=== PATIENT | male | born 1970 | race Caucasian/White ===

== ENCOUNTER 2018-01-16 22:22 | Emergency (ER) | payer MEDICAID, SELFPAY ==
[2018-01-16 22:23] VITALS: BP 132/84; PULSE 78; RESP 18; TEMP 36.6; O2SAT 98; BMI 36.8
--- NOTE | 2018-01-16 22:37 | EKG12_ITS ---
Test Reason : Blood Pressure : / mmHG Vent. Rate : 072 BPM Atrial Rate : 072 BPM P-R Int : 176 ms QRS Dur : 078 ms QT Int : 402 ms P-R-T Axes : 009 -07 022 degrees QTc Int : 440 ms Normal sinus rhythm Minimal voltage criteria for LVH, may be normal variant Inferior infarct , age undetermined Abnormal ECG Confirmed by LINDA MALDONADO, BECCA ([id number]), editorial specialist YANDEL MANCIA ([id number]) on 01/19/2018 2:56:09 PM Referred By: SHAISTA Confirmed By:BECCA MCKEON MD
--- NOTE | 2018-01-16 22:37 | US_ITS ---
STUDY: ABDOMINAL ULTRASOUND - RIGHT UPPER QUADRANT REASON FOR VISIT: Male, 47 years old. Pain TECHNIQUE: Ultrasound evaluation of the right upper quadrant was performed with real-time and static mann-scale imaging. TECHNICAL QUALITY: Adequate. COMPARISON: None. FINDINGS: Liver: The liver measures 20.2 cm. There is increased echogenicity of the liver. The bile ducts are within normal limits. There is hepatic color flow. The direction of portal flow is hepatopetal. There is no demonstrated mass lesion. Gallbladder: Normal distended gallbladder. The gallbladder wall measures 4 mm. There is a negative sonographic Bolden's sign. There is no pericholecystic fluid. There are no gallstones. However, there are echogenic foci with ringdown artifact consistent with adenomyomatosis Common Bile Duct (C.B.D.): The common bile duct measures 4 mm. Pancreas: Nonvisualization of the pancreatic tail otherwise normal-appearing pancreas. Right Kidney: Normal size of the right kidney. The right kidney measures 11.7 x 6.4 x 7.3 cm. Normal renal cortex. The right cortex measures 1.4 cm. There is no demonstrated renal mass or cyst. There is no right hydronephrosis. US/Gallbladder IMPRESSION: Enlarged fatty infiltrated liver. Thick-walled gallbladder demonstrating adenomyomatosis. No gallstones or evidence for acute cholecystitis HIDA scan with fatty meal stimulation would be helpful for further assessment if indicated Electronically Signed: Chris Sy MD at 23:40 EDT , Service support ,
--- NOTE | 2018-01-16 22:39 | RAD_ITS ---
STUDY: X-RAY CHEST REASON FOR EXAM: Male, 47 years old. Abdominal pain TECHNIQUE: AP portable COMPARISON: None. FINDINGS: Diminished inspiratory effort is seen and there appears to be very mild atelectasis at the right base.. There is no demonstrated pleural abnormality. The heart is mildly enlarged Normal mediastinum and alayna. Normal visualized pulmonary arteries. Normal visualized aortic arch and descending thoracic aorta. Dorsal spine demonstrates spondylosis Normal visualized ribs, clavicles, and shoulders. There is no demonstrated abnormality of the visualized soft tissue structures of the upper abdomen. RAD/Chest 1 View (Portable) IMPRESSION: Diminished inspiratory effort and minor right basilar atelectasis. Electronically Signed: Chris Sy MD at 23:01 EDT , Service support ,
--- NOTE | 2018-01-16 22:41 | ED.DCSUM_ITS ---
- ER Visit Summary Date of Service: 01/16/18 Chief Complaint: Gallbladder attack History of Present Illness: The patient is a 47 M with abdominal pain for the past couple of days. The pain is in his right upper quadrant and radiates to his mid back and right lower chest. Worse with food. Associated with bloating. Nothing seems to make it better. Denies nausea, vomiting, fevers, or jaundice. Denies any respiratory symptoms. Denies any urinary symptoms. Denies any history of abdominal surgery. He does have a history of hyperlipidemia. Smoker. Physical Examination: Afebrile and vital signs unremarkable. Patient is alert and oriented. No acute distress. Skin normal in color without jaundice or pallor. Heart regular rate and rhythm. Lungs clear. Abdomen tender in the right upper quadrant. No guarding or rebound. Normal bowel sounds. Back unremarkable. No tenderness. No rash noted. Calf soft and supple. Moves all extremities. Test Results: EKG, chest x-ray, right upper quadrant ultrasound, labs pending. Emergency Department Course and Treatment: Patient declined pain medicine. He will be treated with fluid bolus while awaiting results. EKG sinus rhythm, unremarkable. Chest x-ray showed nothing significant. Ultrasound showed a fatty liver and a thick-walled gallbladder with adenomyomatosis, but no stones or signs of cholecystitis. CBC normal. Glucose 153, total bilirubin 1.4, alkaline phosphatase 146, ALT 360, AST 497. Lipase normal. Troponin normal. Patient has findings consistent with hepatitis. He was discussed with Dr. Huizar. He advised checking CMV, EBV, hepatitis panel, JOLANTA, anti-smooth muscle, and ceruloplasmin level. He also advised a repeat hepatic panel prior to his outpatient visit. Patient was given a prescription for this. Patient was advised to follow-up with him in the office, . He needs to be seen early next week. He should return to the emergency department if he is doing worse. It is unclear if Dr. Huizar is in the patient's insurance network. The patient will call to find out. If he has trouble following up or getting seen, he will touch base with his PCP for help with a referral. Treatment Plan: As above Disposition: Discharged Impression: 1. Hepatitis This note was generated with [employer] software. It may contain incorrect words, spelling, and punctuation that were not noted in review of the chart prior to signing ED Disposition - Plan for ED Patient: Chief Complaint: Abd Pain Referrals: Demetrius Phelps DO [Primary Care Provider] -
--- NOTE | 2018-01-16 22:41 | ED.RN ---
NO OLD EKGS
[2018-01-16] MEDS: 0.9% Normal Saline 1,000 ML 1000 ML IV (22:51)
[2018-01-16 23:20] LABS: ALB/GLOB Ratio 1.1 RATIO (0.9-2.4); AST(SGOT) 497 U/L (15-37); Alanine Aminotransfer ALT/SGPT 360 U/L (16-61); Albumin, Serum 3.7 g/dL (3.2-5.0); Alkaline Phosphatase 146 U/L (45-117); Anion Gap 10 (5-15); BUN 9 mg/dL (7-18); BUN/Creat Ratio 9.4 RATIO (10-20); Calcium,Total 8.6 mg/dL (8.5-10.1); Chloride 105 mmol/L (98-107); Creatinine, Serum 0.96 mg/dL (0.70-1.30); EST Glomerular Filtration Rate 89 mL/min (>60); Est Glom Filt Rate - Afr Amer 108 mL/min (>60); Estimated Creatinine Clearance 95.13 ml/min; Globulin 3.5 g/dL (2.2-4.2); Glucose 153 mg/dL (74-106); Lipase 210 U/L (73-393); Potassium 3.5 mmol/L (3.5-5.1); Protein, Total 7.2 g/dL (6.4-8.2); Sodium Level 140 mmol/L (136-145)
[2018-01-16 23:48] LABS: Absolute Lymphocyte Count 1.07 X10^3/ul (0.83-4.51); Absolute Neutrophil Count 3.3 X10^3/uL (2.0-7.7); Basophil# 0.03 X10^3/uL; Basophil% 0.6 % (0-1); Eosinophil# 0.06 X10^3/uL; Eosinophils% 1.2 % (0-5); Hematocrit 41.4 % (40-54); Hemoglobin 14.2 g/dl (13.0-16.5); Lymphocyte # 1.07 X10^3/ul (4.0); Lymphocyte % 22.1 % (19-41); Mean Corp Hgb Conc 34.3 g/gl (32-36); Mean Corpuscular Hgb 30.7 pg (27.0-32.0); Mean Corpuscular Volume 89.4 fL (80-94); Mean Platelet Vol. 11.7 fl (6.2-12.0); Monocyte# 0.42 X10^3/uL; Monocyte% 8.7 % (0-10); Neutrophil # 3.26 X10^3/uL (2.7-7.7); Neutrophil % 67.2 % (47-70); Platelet Count 214 K/mm3 (150-450); RBC Distribution Width CV 13.1 % (11.6-14.6); RBC Distribution Width SD 42.6 fl (35.1-43.9); Red Blood Count 4.63 M/mm3 (4.6-6.2); White Blood Count 4.9 K/mm3 (4.4-11.0)
[2018-01-16 23:54] LABS: POSITIVE COUNT NO; POSITIVE DIFFERENTIAL NO; POSITIVE MORPHOLOGY NO
--- NOTE | 2018-01-17 00:42 | ED.DEP ---
ED Disposition - Plan for ED Patient: Chief Complaint: Abd Pain Instructions: Common Tests for Liver Disease Additional Instructions: Call for follow-up with Dr. Huizar on [address] in [place]. [phone]. You need to be seen early next week. If you have trouble following up, contact your primary care doctor for referral. Return to the emergency department if you are doing worse.
[2018-01-17 01:02] VITALS: BP 126/81; PULSE 63; RESP 16; O2SAT 96
[2018-01-19 20:08] LABS: HEPATITIS B SURFACE AG Negative (Negative); Hepatitis A IgM Antibody Negative (Negative); Hepatitis B Core AB IgM Negative (Negative)
[2018-01-20 08:37] LABS: ANTINUCLEAR ANTIBODIES DIRECT Negative (Negative)
[2018-01-20 08:38] LABS: Anti-Smooth Muscle ABS 5 Units (0-19); CMV Acute Antibody IgM < 30.0 AU/mL (0.0-29.9); CMV Antibody IgG < 0.60 U/mL (0.00-0.59); Ceruloplasmin 22.2 mg/dL (16.0-31.0); EBV Acute VCA IgM < 36.0 U/mL (0.0-35.9); EBV Early Antigen IgG <9.0 U/mL (0.0-8.9); EBV Nuclear Antigen IgG < 18.0 U/mL (0.0-17.9); Hep C Antibodies <0.1 s/co ratio (0.0-0.9)
== END 2018-01-17 01:09 | disposition home or self-care (01) ==
LOC: ED 23:49
PROVIDERS: Emergency Provider Emergency Medicine; Family Provider Family Medicine; PCP Family Medicine
DX: K75.9 Inflammatory liver disease, unspecified (principal); K76.0 Fatty (change of) liver, not elsewhere classified; F17.290 Nicotine dependence, other tobacco product, uncomplicated; E78.5 Hyperlipidemia, unspecified
CPT/HCPCS: 71045; 76705; 80053; 80074; 82390; 83516; 83690; 84484; 85025; 86038; 86225; 86235; 86644; 86645; 86663; 86664; 86665; 93005; 96360; 99283; J7030; A4216

== ENCOUNTER → 2018-01-20 13:28 | Outpatient (CLI) | payer MEDICAID, SELFPAY ==
[2018-01-20 15:33] LABS: AST(SGOT) 35 U/L (15-37); Alanine Aminotransfer ALT/SGPT 164 U/L (16-61); Albumin, Serum 3.7 g/dL (3.2-5.0); Alkaline Phosphatase 139 U/L (45-117); Bilirubin, Direct 0.09 mg/dL (0.00-0.30); Globulin 3.2 g/dL (2.2-4.2); Protein, Total 6.9 g/dL (6.4-8.2)
== END ==
PROVIDERS: Family Provider Family Medicine; PCP Family Medicine; Visit Provider Family Medicine
DX: R74.8 Abnormal levels of other serum enzymes (principal)
CPT/HCPCS: 36415; 80076

== ENCOUNTER → 2018-01-22 11:33 | Outpatient (CLI) | payer MEDICAID, SELFPAY ==
--- NOTE | 2018-01-22 11:36 | NM_ITS ---
CLINICAL: 47-year-old male with history of postprandial right upper quadrant abdominal pain and nausea. RADIONUCLIDE HEPATOBILIARY SCINTIGRAPHY COMPARISON: Abdominal ultrasound report 01/16/2018 FINDINGS: Following the intravenous administration of 5.4 mCi of 99m Tc Mebrofenin, hepatobiliary images reveal: 1. Relatively prompt and homogeneous radiopharmaceutical concentration is noted by a normal sized liver. No parenchymal defects are identified. 2. Gallbladder activity is identified at 30 minutes post radiopharmaceutical administration. 3. Small intestinal tract is observed at 15 minutes following tracer injection. 4. Washout of the radiopharmaceutical by the hepatic parenchyma appears qualitatively normal. The patient was administered a fatty meal (8 ounces Boost). The post fatty meal ingestion gallbladder ejection fraction calculated at 60 minutes following fatty meal administration was noted to be 74.0 % (normal greater than 30%). Duodenal-gastric reflux is demonstrated following the administration of the fatty meal. NM/Hepatobilliary Img w/Pharm Int IMPRESSION: 1. A gallbladder ejection fraction calculated to be greater than 30% following the administration of an ingested fatty meal makes the probability of functional hepatobiliary disease (gallbladder and/or sphincter of Oddi dyskinesia) and/or organic hepatobiliary disease (chronic acalculous cholecystitis and/or cystic duct syndrome) to be low. (Rah and Fletcher, J Nucl Med 43: 1603, 2002). 2. There is scintigraphic evidence of pre-post fatty meal duodenal gastric reflux. Electronically Signed: Daljit Richardson DO at 10:56 EDT Tel , Service support ,
== END ==
LOC: NM 11:36
PROVIDERS: Family Provider Family Medicine; PCP Family Medicine; Referring Provider Family Medicine; Visit Provider Family Medicine
DX: R10.11 Right upper quadrant pain (principal)
CPT/HCPCS: 78227; A9537

== ENCOUNTER → 2019-02-03 09:30 | Outpatient (CLI) | payer MEDICAID, SELFPAY ==
[2019-02-03 12:44] LABS: ALB/GLOB Ratio 1.1 RATIO (0.9-2.4); AST(SGOT) 15 U/L (15-37); Alanine Aminotransfer ALT/SGPT 29 U/L (16-61); Albumin, Serum 3.7 g/dL (3.2-5.0); Alkaline Phosphatase 91 U/L (45-117); Anion Gap 7 (5-15); BUN 15 mg/dL (7-18); BUN/Creat Ratio 17.3 RATIO (10-20); Calcium,Total 8.9 mg/dL (8.5-10.1); Chloride 106 mmol/L (98-107); Cholesterol 191 mg/dL (200); Creatinine, Serum 0.87 mg/dL (0.70-1.30); EST Glomerular Filtration Rate 99 mL/min (>60); Est Glom Filt Rate - Afr Amer 120 mL/min (>60); Globulin 3.3 g/dL (2.2-4.2); Glucose 79 mg/dL (74-106); High Density Lipoprotein 34 mg/dL; Potassium 3.9 mmol/L (3.5-5.1); Sodium Level 141 mmol/L (136-145); Triglycerides 236 mg/dL; Very Low Density Lipoprotein 47 mg/dL (5-40)
== END ==
PROVIDERS: Family Provider Family Medicine; PCP Family Medicine; Visit Provider Family Medicine
DX: E78.5 Hyperlipidemia, unspecified (principal); K75.81 Nonalcoholic steatohepatitis (NASH)
CPT/HCPCS: 36415; 80053; 80061

== ENCOUNTER → 2019-04-05 16:27 | Outpatient (CLI) | payer OTHER, SELFPAY ==
--- NOTE | 2019-04-05 16:32 | MRI_ITS ---
STUDY: MRI BRAIN WITH AND WITHOUT CONTRAST (ATTENTION INTERNAL AUDITORY CANALS - I.A.C.''s) REASON FOR EXAM: Male, 48 years old. left tinnitus x 3 months -- no pain, no hearing loss, no dizziness TECHNIQUE: Standardized multiplanar fat and water weighted pulse sequences were obtained. dotarem 22 ml iv was administered for the contrast portion of the examination. COMPARISON: None. FINDINGS: Normal bilateral temporal bones. Normal bilateral internal auditory canals. There is no demonstrated intracanalicular or cisternal vestibular schwannoma (acoustic neuroma). There is no enhancement of the bilateral VIIth or VIIIth cranial nerves. Normal bilateral cochlea, vestibules and semicircular canals. Normal size of the ventricles and extra-axial spaces for the patient''s age. Normal white matter tracts of the supratentorial brain. Normal bilateral basal ganglia. Normal thalami. Normal flow voids within the major intracranial circulation suggesting patency by spin echo criteria. Normal venous enhancement. There is no enhancing intra-axial or extra-axial abnormality. There is no extra-axial fluid accumulation. Normal sella turcica, pituitary gland, infundibular stalk, optic chiasm and hypothalamus. Normal tectal plate and pineal gland. Normal midbrain, chey and medulla. Normal cerebellum. Normal basal cisterns. No demonstrated orbital abnormality, within the constraints of a routine brain study. Normal visualized paranasal sinuses. Normal calvarium and skull base. Normal visualized soft tissue structures. Normal visualized upper cervical spine. MRI/Brain W/WO Contrast IMPRESSION: Normal unenhanced and enhanced MRI of the bilateral internal auditory canals (I.A.C''s). Electronically Signed: Maya Barraza MD at 15:39 EST Tel , Service support ,
== END ==
PROVIDERS: Family Provider Family Medicine; PCP Family Medicine; Referring Provider Otolaryngology Otolaryngology/Facial Plastic Surgery; Visit Provider Otolaryngology Otolaryngology/Facial Plastic Surgery
DX: H93.12 Tinnitus, left ear (principal)
CPT/HCPCS: 70553; A9575

== ENCOUNTER 2024-04-27 17:06 | Inpatient (IN) | payer OTHER, SELFPAY ==
--- NOTE | 2024-04-27 | IMM_PTH ---
PATIENT: ROSALVA REBOLLEDO LOC: MS3 U#:[id number] AGE/SX: 54/M ROOM: NH314 RE04/28/[address]: Dr. Ruddy Coffman MD : 1970 BED: 1 DIS: 04/30/2024 SPEC #: [id number] RECD: 05/03/24 13:12 STATUS: SOUT REQ #: [id number] MALA: 04/27/24 00:[address]: Ruddy Coffman DEPT: IMMUNOHISTOCHEMISTRY RECD BY: Diego Zhao ENTERED: 05/03/24 13:13 SP TYPE: IMMUNO OTHR DR: Dr. Demetrius Phelps, Tissues: A - Colon, NOS Procedures: MSH2 (add) MLH-1 (add) MSH6 (add) Anti-PMS2 (add) KI-67 (add) P53 (add) MOC-31 (add) HER-2-PIPO (initial) PHYSICIAN [facility] INSTIT[facility] [address] [address] SPECIMEN INFORMATION: Tissue Source: A- Right colon and appendix Clinical Info: Intussuspection Specimen Number: [id number] CPT code: 79818,[id number] METHODOLOGY: Deparaffinized sections of prefer/formalin-fixed tissue or PAP/DQ stained slides are incubated with monoclonal/polyclonal antibodies/oligonucleotide probes. Localization is made via biotin free immunoperoxidase method. Appropriate controls are performed and reacted as expected. Results on target cell population are indicated in the following table: RESULTS: ANTIBODY / CLONE RESULT Block A 7 Her-2neu (CB11) negative (1+) MOC-31 (4561) positive MLH-1 (M1) positive MSH2 (25D12) positive MSH6 (44) positive PMS2 ([id number]) positive Ki-67 (30-9) positive, high P53 (DO-7) positive, rare cells ( wild type pattern ) Testing for Her2 by IHC if equivocal, recommend testing for Her2 by FISH(remove/not needed) These tests were developed and their performance characteristics determined by [facility]. They may not have been cleared or approved by the U.S. Food and Drug Administration. The FDA has determined that such clearance or approval is not necessary. The above immunohistochemical/dualISH markers are ordered and reviewed by the Pathologist. 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 Result of Microsatellite Instability Study: Negative (no loss of mismatch protein; no microsatellite instability detected). [email or web address].mr 05/04/2024
[2024-04-27 17:06] VITALS: BP 152/74; PULSE 90; RESP 16; TEMP 37; O2SAT 99; BMI 34.2
--- NOTE | 2024-04-27 17:49 | CT_ITS ---
We are attempting to reach an attending provider to discuss findings. An addendum with communication details will be sent when the communication is complete. STUDY: CT ABDOMEN AND PELVIS WITH CONTRAST REASON FOR EXAM: Male, 54 years old. Abdominal pain RADIATION DOSAGE (If Supplied By Facility): CTDIvol = ( 14.56 ) mGy, DLP = ( 1305.55 ) mGycm TECHNIQUE: Transaxial images were obtained from the dome of the diaphragm to the symphysis pubis without oral contrast. IV 75mL Isovue-370 was administered. Sagittal and coronal images were reconstructed. Individualized dose optimization techniques were used for this CT. COMPARISON: None. FINDINGS: The visualized lung bases are unremarkable. The visualized portions of the heart are within normal limits. Normal liver. The gallbladder is contracted. Normal spleen. Normal pancreas. Normal bilateral adrenal glands. Normal right kidney. Normal left kidney. Normal visualized stomach. Normal small intestine. There is colocolic intussusception in the right upper quadrant of the abdomen. The appendix is visualized and appears normal. Normal abdominal aorta. Normal inferior vena cava. Normal retroperitoneum. Normal urinary bladder. There is no free fluid in the abdomen or pelvis. Normal abdominal wall. There is degenerative change of the spine and hips. CT/Abdomen/Pelvis W IV Cont ONLY IMPRESSION: Colocolic intussusception. No obstruction. Electronically Signed: Dipak Stewart MD at 19:07 EST ,
--- NOTE | 2024-04-27 17:50 | ED.VIS.GI ---
HPI HPI - GI History of Present Illness Chief Complaint: Abd Pain Detail of Chief Complaint: Abdominal pain Informant: patient Narrative Narrative: Patient presents with abdominal pain that started yesterday. Describes it as right upper quadrant radiating to his back. He said no nausea or vomiting. Food really does not seem affected much. Not very positional. Denies chest pain or shortness of breath. Denies recent travel or surgery. Denies history of kidney stones. He denies urinary symptoms. PFSH PFSH Home Medications ?Medication ?Instructions ?Recorded ?Last Taken ?Type fenofibrate nanocrystallized 48 mg 45 mg PO DAILY 01/16/18 Unknown History tablet pravastatin 20 mg tablet 20 mg PO QHS 01/16/18 Unknown History Allergy/AdvReac Type Severity Reaction Status Date / Time No Known Allergies Allergy Verified 04/27/24 17:07 Social History Smoking Status: Current some day smoker tobacco type: cigars ROS ROS ED Review of Systems ROS Unobtainable: other Constitutional Constitutional ED: Reports lethargy; Denies chills, fever(s), sweats or weight loss Eyes Eyes: Denies blurry vision, change in vision or diplopia ENT ENT ED: Denies rhinorrhea or sore throat Cardiovascular Cardiovascular: Denies chest pain, orthopnea or racing heartbeat Respiratory/Chest Respiratory/Chest: Denies cough, dyspnea, dyspnea on exertion, orthopnea or sputum Gastrointestinal Gastrointestinal: Reports abdominal pain; Denies diarrhea, nausea or vomiting Genitourinary Genitourinary ED: Denies dysuria, hematuria or urinary frequency Musculoskeletal Musculoskeletal: Denies arthralgias, back pain, myalgias or neck pain Integumentary Denies abscess, Abrasions or rash Neurologic Neurologic: Denies headache(s) or weakness Psychiatric Psychiatric: Denies anxiety, depression or suicidal thoughts Endocrine Endocrinology: Denies polydipsia, polyphagia or polyuria Hematologic/Lymphatic Hematologic/Lymphatic: Denies easy bleeding, easy bruising or lymphadenopathy Allergic/Immunologic Allergic/Immunologic ED: Denies mouth swelling, tongue swelling or urticaria EXAM Physical Exam Const Vital Signs: 04/27/24 17:06 04/27/24 19:31 Temperature 98.6 F Temperature Source Oral Pulse Rate 90 71 Respiratory Rate 16 18 Blood Pressure 152/74 H 135/78 H Blood Pressure Mean 100 97 Pulse Ox 99 98 Oxygen Delivery Method Room Air Room Air Positive well nourished and well developed General Appearance ED: well developed and NAD HEENT Reports TM's clear and moist mucous membranes normocephalic and atraumatic; Negative for trauma or tenderness Tympanic Membrane ED: Yes TM's clear Eyes PERRL and EOMs intact bilaterally General Eye ED: Negative for pale conjunctiva or scleral icterus Neck no lymphadenopathy, supple and no JVD General: Negative for tenderness Chest Wall inspection of chest normal and palpation of chest normal Chest: Negative for tenderness Resp normal respiratory effort and clear to auscultation bilaterally Effort and Inspection: Negative for respiratory distress or pain with movement Auscultation: Negative for rhonchi, wheezes or diminished lung sounds Cardio regular rate, regular rhythm, S1 normal heart sound, S2 normal heart sound and no murmurs Peripheral Pulses: pulses 2+ throughout GI normal to inspection, nondistended, normoactive bowel sounds, soft to palpation, non-distended and no masses GI Narrative: Tenderness palpation over right upper quadrant with guarding. There is a positive Bolden sign. There is no rebound or rigidity. Back/Spine no CVA tenderness and no thoracic nor lumbar tenderness Extremity normal to inspection General Extremety ED: Negative for edema General Extremity: Negative for edema Neuro oriented x3, CN's II-XII intact bilaterally, no sensory deficits noted and gait normal Sensorium / Orientation: awake, alert, oriented to person, oriented to place and oriented to time Motor Exam: strength 5/5 throughout and strength abnormal Psych mental status grossly normal Skin no rashes or lesions noted and no wounds MDM MDM MDM Narrative Medical decision making narrative: Patient with right upper quadrant abdominal pain that started yesterday. In the differential would be diverticulitis of the transverse colon versus gallbladder disease or bowel obstruction or bowel perforation. Kidney stone also would be in the differential. IV line established. He did not want thing for pain. CBC with differential obtained showed white count 7.9 with hemoglobin 11.2 and platelet count of 297. Chemistries unremarkable. LFTs were normal. Lactate was normal at 1.2. Lipase was 37. CT scan of the abdomen pelvis showed intestine section in the right upper quadrant. Discussed case with radiology who called me about the case. Also discussed case with general surgeon on-call Dr. Coffman who will present to the ER to evaluate patient. Lab Data Attestation: I reviewed the patient's lab results. Labs: Laboratory Results - last 24 hr 04/27/24 18:00 WBC 7.9 RBC 4.18 L Hgb 11.2 L Hct 35.0 L MCV 83.7 MCH 26.8 L MCHC 32.0 RDW Std Deviation 44.8 H RDW Coeff of Ana 14.6 Plt Count 297 MPV 10.8 Immature Gran % (Auto) 0.400 Neut % (Auto) 73.7 H Lymph % (Auto) 14.[address] [place] % (Auto) 9.6 Eos % (Auto) 0.9 Baso % (Auto) 0.6 Absolute Neuts (auto) 5.9 Absolute Lymphs (auto) 1.17 Nucleated RBC % 0 Sodium 140 Potassium 3.5 Chloride 106 Carbon Dioxide 28.0 Anion Gap 5 BUN 7 Creatinine 0.80 Estim Creat Clear Calc 126.18 Est GFR (MDRD) Af Amer 129 Est GFR (MDRD) Non-Af 107 BUN/Creatinine Ratio 8.7 L Glucose 104 Lactic Acid 1.2 Calcium 9.1 Total Bilirubin 0.50 AST 9 L ALT 13 L Alkaline Phosphatase 81 Troponin I High Sens 4 Total Protein 6.6 Albumin 3.2 Globulin 3.4 Albumin/Globulin Ratio 0.9 Lipase 37 Radiography Diagnostic Testing: Clinical Impression(s) from Imaging Studies Abdomen/Pelvis CT 04/27/24 17:49 IMPRESSION: Colocolic intussusception. No obstruction. Electronically Signed: Dipak Stewart MD at 19:07 EST , ADDENDUM: 04/27/24 191 IMPRESSION: Colocolic intussusception. No obstruction. N.B. : The above Results were Read Back by Dipak Stewart MD to Gregoria Treviño DO, and understanding confirmed on 04/27/2024 19:11:47 (ET). Electronically Signed: Dipak Stewart MD at 19:07 EST , EKG Initial EKG: Attestation: I personally reviewed and interpreted this EKG as follows: Comments: Sinus rhythm with rate of 73 bpm with no acute ST segment changes Discharge Plan Triage Chief Complaint: Abd Pain ED Provider: Gregoria Treviño Dx/Rx/DC Orders Clinical Impression: Abdominal pain, Intussusception Prescriptions: No Action pravastatin 20 MG tablet 20 mg PO QHS Patient Comments: take 1 tablet by mouth once daily fenofibrate nanocrystallized 48 MG tablet 45 mg PO DAILY Primary Care Provider: Demetrius Phelps Referrals: Demetrius Phelps DO [Primary Care Provider] - Print Language: Japanese Disposition Disposition: Acute Care Hospital [facility]
[2024-04-27 18:15] LABS: Absolute Lymphocyte Count 1.17 X10^3/uL (0.83-4.51); Absolute Neutrophil Count 5.9 X10^3/uL (2.0-7.7); Basophil# 0.05 X10^3/uL; Basophil% 0.6 % (0-1); Eosinophil# 0.07 X10^3/uL; Eosinophils% 0.9 % (0-5); Hemoglobin 11.2 g/dL (13.0-16.5); Lymphocyte # 1.17 X10^3/ul (0.83-4.51); Lymphocyte % 14.8 % (19-41); Mean Corpuscular Hgb 26.8 pg (27.0-32.0); Mean Corpuscular Volume 83.7 fL (80-94); Mean Platelet Vol. 10.8 fl (6.2-12.0); Monocyte# 0.76 X10^3/uL; Monocyte% 9.6 % (0-10); NRBC Flagged by Analyzer 0 % (0-5); Neutrophil # 5.85 X10^3/uL (2.7-7.7); Neutrophil % 73.7 % (47-70); Platelet Count 297 K/mm3 (150-450); RBC Distribution Width CV 14.6 % (11.6-14.6); RBC Distribution Width SD 44.8 fl (35.1-43.9); Red Blood Count 4.18 M/mm3 (4.6-6.2); White Blood Count 7.9 K/mm3 (4.4-11.0)
[2024-04-27 18:41] LABS: Lactic Acid 1.2 mmol/L (0.4-1.9)
[2024-04-27 18:45] LABS: ALB/GLOB Ratio 0.9 RATIO (0.9-2.4); AST(SGOT) 9 U/L (15-37); Alanine Aminotransfer ALT/SGPT 13 U/L (16-61); Albumin, Serum 3.2 g/dL (3.2-5.0); Alkaline Phosphatase 81 U/L (45-117); Anion Gap 5 (5-15); BUN 7 mg/dL (7-18); BUN/Creat Ratio 8.7 RATIO (10-20); Calcium,Total 9.1 mg/dL (8.5-10.1); Chloride 106 mmol/L (98-107); EST Glomerular Filtration Rate 107 mL/min (>60); Est Glom Filt Rate - Afr Amer 129 mL/min (>60); Estimated Creatinine Clearance 126.18 ml/min; Globulin 3.4 g/dL (2.2-4.2); Glucose 104 mg/dL (74-106); Lipase 37 U/L (13-75); Potassium 3.5 mmol/L (3.5-5.1); Protein, Total 6.6 g/dL (6.4-8.2); Sodium Level 140 mmol/L (136-145); Troponin-I HS 4 pg/mL (3.0-78.0)
[2024-04-27 19:31] VITALS: BP 135/78; PULSE 71; RESP 18; O2SAT 98
--- NOTE | 2024-04-27 20:12 | HP.PCM_ITS ---
HPI - General General Date of Service: 04/27/24 Chief Complaint: Acute onset right upper quadrant pain HPI Narrative ROSALVA REBOLLEDO, is a 54 M who presents to [facility] with complaints of acute onset right upper quadrant pain beginning yesterday morning. He shares that this pain has become constant in character and radiates through to his back. Generally states that it is of moderate intensity rating it a 5 or 6 of 10 but can progress to a higher intensity. He denies any associated nausea or vomiting. He confirms that his bowel habits have been regular and unremarkable. He shares he did not seek evaluation sooner because he was up at [facility] visiting his grandson who is critically ill. Upon evaluation in the emergency department emergency medicine suspected possible gallbladder issue as patient displayed marked tenderness in right upper quadrant with positive Bolden sign. Mr. Rebolledo underwent ER workup with laboratories and CT imaging. The former showed some mild anemia but otherwise was unremarkable?including normal LFTs. However, CT imaging was more significant showing evidence of colocolonic intussusception of the right colon. Upon noting this finding I was contacted by emergency medicine. Mr. Rebolledo denies any previous experience of right upper quadrant pain of this character. There is a record in the EMR that suggests a prior presentation of a similar complaint but ultimately was diagnosed with hepatitis. Mr. Rebolledo does not recall any further details of this issue and denies any known medical diagnoses and denies taking any medicines on a regular basis. He further denies any history of surgery. Mr. Rebolledo has never undergone colonoscopy. He denies any family history of colon cancer. Lastly Mr. Rebolledo denies any recent weight loss and does share that he had some dark stools over New Year's when he had an illness where he was taking Pepto-Bismol but otherwise his bowels have been unremarkable. [facility] Home Medications ?Medication ?Instructions ?Recorded ?Last Taken ?Type fenofibrate nanocrystallized 48 mg 45 mg PO DAILY 01/16/18 Unknown History tablet pravastatin 20 mg tablet 20 mg PO QHS 01/16/18 Unknown History Allergy/AdvReac Type Severity Reaction Status Date / Time No Known Allergies Allergy Verified 04/27/24 17:07 Social History Smoking Status: Current some day smoker tobacco type: cigars Vital Signs Vital Signs Vital Signs: 04/27/24 17:06 04/27/24 19:31 Temperature 98.6 F Temperature Source Oral Pulse Rate 90 71 Respiratory Rate 16 18 Blood Pressure 152/74 H 135/78 H Blood Pressure Mean 100 97 Pulse Ox 99 98 Oxygen Delivery Method Room Air Room Air Weight Weight: 232 lb Body Mass Index (BMI) 34.2 Physical Exam Const alert, oriented x3, no apparent distress and well nourished General Appearance: cooperative GI GI Narrative: Hirsute, no scars, no visible herniations. Nondistended, soft, markedly tender to palpation with focal peritonitis in right upper quadrant?otherwise unremarkable Results Lab / Micro Data 04/27/24 18:00 04/27/24 18:00 Labs: Laboratory Results - last 24 hr 04/27/24 18:00: WBC 7.9, RBC 4.18 L, Hgb 11.2 L, Hct 35.0 L, MCV 83.7, MCH 26.8 L, MCHC 32.0, RDW Std Deviation 44.8 H, RDW Coeff of Ana 14.6, Plt Count 297, MPV 10.8, Immature Gran % (Auto) 0.400, Neut % (Auto) 73.7 H, Lymph % (Auto) 14.8 L, Sharp % (Auto) 9.6, Eos % (Auto) 0.9, Baso % (Auto) 0.6, Absolute Neuts (auto) 5.9, Absolute Lymphs (auto) 1.17, Nucleated RBC % 0, Sodium 140, Potassium 3.5, Chloride 106, Carbon Dioxide 28.0, Anion Gap 5, BUN 7, Creatinine 0.80, Estim Creat Clear Calc 126.18, Est GFR (MDRD) Af Amer 129, Est GFR (MDRD) Non-Af 107, BUN/Creatinine Ratio 8.7 L, Glucose 104, Lactic Acid 1.2, Calcium 9.1, Total Bilirubin 0.50, AST 9 L, ALT 13 L, Alkaline Phosphatase 81, Troponin I High Sens 4, Total Protein 6.6, Albumin 3.2, Globulin 3.4, Albumin/Globulin Ratio 0.9, Lipase 37 Imaging Radiology Impression Abdomen/Pelvis CT 04/27/24 17:49 IMPRESSION: Colocolic intussusception. No obstruction. Electronically Signed: Dipak Stewart MD at 19:07 EST , ADDENDUM: 04/27/241917 IMPRESSION: Colocolic intussusception. No obstruction. N.B. : The above Results were Read Back by Dipak Stewart MD to Gregoria Treviño DO, and understanding confirmed on 04/27/2024 19:11:47 (ET). Electronically Signed: Dipak Stewart MD at 19:07 EST , Assessment & Plan Assessment/Plan (1) Intussusception: PLAN: Patient is 54-year-old, otherwise healthy, male who presents with signs and symptoms of colocolonic intussusception beginning approximately 36 hours ago. He is markedly tender on exam but, fortunately, has no evidence of leukocytosis or CT evidence of bowel ischemia. I described the diagnosis in detail to both he and his and shared that in adults intussusception is found to be associated with a pathologic lead point and approximately 90% of cases. As such I recommended proceeding emergently for a formal right hemicolectomy with plans for immediate ileocolonic anastomosis. Relevant anatomy was discussed and they did share that infrequently operative events occur that lead us to creation of an ostomy for evacuation of waste rather than being able to create an anastomosis. I also shared how the extent of resection should be considered oncologically sound given the risk for cancer and need for adequate margins/lymph node harvest in the event pathology confirms a cancer. Given the patient has a virgin abdomen, no obstruction, and otherwise is nondistended I believe it is reasonable to proceed at least initially with a laparoscopic approach but did inform Mr. Rebolledo that the specimen must ultimately be extracted and this would likely require a limited laparotomy incision. Following the procedure I informed Mr. Rebolledo that he will be admitted to the hospital for ongoing care will we will look to see that he obtains adequate pain control and ultimately tolerates a regular diet with resumption of bowel function. Both he and his were given the opportunity ask questions and once these were answered the operative team was notified of my intent to proceed with hemicolectomy. Ruddy Coffman MD General Surgery Endocrine Surgery Pager: [facility] [address] [place] [address], [address] [place] [address] Office: [phone] Charges/Coding Visit Charges Inpatient E&M: 04713 Init Hosp L2
[2024-04-27] MEDS: Piperacil/Tazobactam 4.5 GM in 0.9% Normal Saline (100mL MB+) 100 ML IV (20:33)
[2024-04-27 20:41] VITALS: BP 137/81; PULSE 85; RESP 16; TEMP 37.6; O2SAT 97; BMI 34.2
--- NOTE | 2024-04-27 21:28 | PCM.PRE.AN2 ---
ASA Classification* ASA Classification ASA Classification: 2 and E Assessment & Plan Anesthesia* Anesthesia Assessment Anesthesia Assessment: Discussed sedation and/or anesthesia options, risks, benefits, and alternatives with patient/parents/legal guardian/POA. Questions invited. The patient/parents/legal guardian/POA seems to understand and agrees to proceed with anesthesia plan. Reviewed the physical assessment, medical history, allergy history and patient home medications list prior to surgery/procedure/anesthetic and documented any changes. Performed airway and anesthesia risk assessments. Anesthesia Type Anesthesia Type: General History Source History Obtained from:: Patient and Chart Anesthesia Focused Assessment* Temperature: 99.6 F Pulse Rate: 85 Blood Pressure: 137/81 Respiratory Rate: 16 Pulse Ox: 97 Oxygen Delivery Method: Room Air Airway Assessment Mouth opens: >3 cm Mallampati Score: IV Teeth Condition: Dentures (Patient has full upper and lower dentures. They are out.) Neck Range of motion (ROM): Full ROM Focused Labs Anesthesia Preop lab: CBC WBC 7.9 K/mm3 (4.4-11.0) 04/27/24 18:00 RBC 4.18 M/mm3 (4.6-6.2) L 04/27/24 18:00 Hgb 11.2 g/dL (13.0-16.5) L 04/27/24 18:00 Hct 35.0 % (40-54) L 04/27/24 18:00 Plt Count 297 K/mm3 (150-450) 04/27/24 18:00 CHEMISTRY Potassium 3.5 mmol/L (3.5-5.1) 04/27/24 18:00 Sodium 140 mmol/L (136-145) 04/27/24 18:00 BUN 7 mg/dL (7-18) 04/27/24 18:00 Creatinine 0.80 mg/dL (0.70-1.30) 04/27/24 18:00 Glucose 104 mg/dL (74-106) 04/27/24 18:00 COAG Pre-Assessment Diagnosis/Proposed Procedure Planned Operative Procedure(s): Laparoscopic right hemicolectomy. 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 When Was Last Pacemaker Check QUESTION #4 FULL TEXT: You/Your Family Experience fever (hyperthermia) with Anesthesia Last Oral Intake Last Oral intake: Last Oral Intake NPO since 16:30 04/27/24 20:41 Meds taken in AM with sips of water? Meds patient instructed to take am of surgery Any additional information?: Yes NPO since: 14:00 (Patient had a piece of pizza at 1400.) PONV PONV - parking lot attendant: PONV - parking lot attendant Female HX of Motion Sickness HX of N/V After Surgery Non-Smoker Duration of Surgery greater than 60 minutes Number of Risk Factors PONV Score Height & Weight Height & Weight: Anesthesia: Height & Weight Height 5 ft 9 in 04/27/24 20:41 Weight: 105.233 kg 04/27/24 20:41 Body Mass Index (BMI) 34.2 04/27/24 20:41 Respiratory Assessment Respiratory Assessment - parking lot attendant: Respiratory Tract Infection Hx - parking lot attendant Hx Respiratory Tract Infection No 04/27/24 20:41 STOP Sleep Apnea STOP Sleep Apnea - parking lot attendant: STOP Sleep Apnea - parking lot attendant Hx Hypertension No 04/27/24 20:41 Hx Sleep Apnea No 04/27/24 20:41 CPAP BIPAP Do you snore loudly (louder No 04/27/24 20:41 than talking or can be heard Do you often feel tired/ No 04/27/24 20:41 fatigued/ sleepy during daytime? Has anyone observed you stop No 04/27/24 20:41 breathing during sleep? STOP Results Negative 04/27/24 20:41 QUESTION #5 FULL TEXT : Do you snore loudly (louder than talking or can be heard through closed doors)? 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 Specify any problems Hx of Preganancy in last 3 Months Nurse Filling Out Transfusion & Questions: Date: Time: Patient unable to answer at this time (ie. confused, unrespo /Reproduction History /Reproductive History - parking lot attendant: /Reproductive Hx- parking lot attendant Hx Now No 04/27/24 20:41 Gestational Age (in weeks): EDC: Hx Hx Para Hx Section SAB PFSH Allergy/AdvReac Type Severity Reaction Status Date / Time No Known Allergies Allergy Verified 04/27/24 17:07 Surgical History no surgical history Social History Smoking Status: Current some day smoker tobacco type: cigars Review of Systems (Anesthesia) ROS Narrative System reviewed and no additional complaints, except as documented.
[2024-04-27 21:32] VITALS: BP 137/81; PULSE 85; RESP 16; TEMP 37.6; O2SAT 97
--- NOTE | 2024-04-27 22:05 | COL_PTH ---
PATIENT: ROSALVA REBOLLEDO LOC: MS3 U#:[id number] AGE/SX: 54/M ROOM: NC314 RE04/28/[address]: Dr. Ruddy Coffman MD : 1970 BED: 1 DIS: 04/30/2024 SPEC #: [id number] RECD: 04/28/24 02:40 STATUS: FIFI REQ #: [id number] MALA: 04/27/24 22:[address]: Ruddy Coffman DEPT: SURGICAL PATHOLOGY RECD BY: Victoria Song ENTERED: 04/28/24 10:03 SP TYPE: COLON OTHR DR: Dr. Demetrius Phelps DO Tissues: A - Colon, NOS B - Omentum, NOS C - Colon, NOS Procedures: Surgery Specimen Level IV Surgery Specimen Level V HEADER OPERATION: Laparoscopic krupa colectomy PRE-OP DIAGNOSIS: Intussusception TISSUE SUBMITTED: A- Right colon and appendix, B- Omentum, C- Right colon staple line MICROSCOPIC DIAGNOSIS A. 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 See cancer summary in the comment section. B. Omentum: A piece of adipose tissue with congestion, hemorrhage, acute inflammation and fibrinous exudation. Negative for malignancy. C. Right colon staple line: Small intestine donut: No pathologic diagnosis. Colonic donut with serosal acute inflammation and fibrinous exudation. RHODA. 05/03/2024 COMMENT A. COLON CANCER SUMMARY: Specimen - Right colon Procedure - Right hemicolectomy Tumor site - Ascending colon Tumor size - 6 x 4.5 x 3.5cm Macroscopic tumor perforation - Not identified Histologic type - Adenocarcinoma with extensive mucinous differentiation Histologic grade - Grade 2, moderately differentiated Microscopic tumor extension - Tumor invades through muscularis propria into pericolonic adipose tissue Margins: Margins are uninvolved by invasive carcinoma., high grade dysplasia, intramucosal carcinoma and adenoma. The tumor is 8cm away from the closest distal resection margin. Treatment effect - No known presurgical therapy Lymphvascular invasion - Not identified Perineural invasion - Not identified Tumor deposits - None identified Type of polyp in which invasive carcinoma arose - None identified Lymph nodes: Number of lymph nodes examined - 14 Number of lymph nodes involved - 1 The metastatic focus of tumor measures 0.4cm in greatest dimension. Extranodal extension is not identified Additional pathologic findings - Appendix with complete luminal obliteration. Colonic resection margin with serosal acute inflammation. Ancillary studies: IHC for microsatellite instability study by IHC ([id number]) will be reported separately. PATHOLOGIC STAGE: pT3p N1 pMx The above summary is in compliance with [employer] [place] [employer] (CAP) Cancer Protocols Checklist and [place] [employer] Committee on Cancer (AJCC), Staging Manual, 8th Ed. This case has been reviewed in consultation with Dr. Chavez who concurs with the above diagnosis. IDC: [id number] MICROSCOPIC DESCRIPTION Slides are reviewed. GROSS DESCRIPTION A. Received in fixative is one container labeled with the patient's name and designated Right colon. The specimen consists of a right hemicolectomy specimen consisting of cecum with ascending colon with attached pericolonic adipose tissue, segment of small intestine with attached mesentery and appendix. Cecum with ascending colon measures 16.0cm in length, small intestine measures 11.0cm in length and appendix measures 8.0cm in length and 0.3cm in diameter. Both resection margins are stapled. The lumen is filled with fecal material. 8cm away from the distal resection margin and 4cm away from the ileocecal valve there is a polypoid cauliflower like mass in the ascending colon measuring 6.0 x 4.5 x 3.5cm. Colonic mucosa is congested. No additional mass lesions are identified. Pericolonic adipose tissue is fixed in lymph node revealing solution. More dictation will follow fixation. SJ.mr 04/28/2024 Section of appendix reveal unremarkable cut surfaces and complete luminal obliteration. Section of the tumor reveal a focal mucinous cut surfaces the tumor and it involves full thickness of the bowel wall. Section of pericolonic adipose tissue reveal multiple lymph nodes. Largest lymph node measures 1 cm in greatest dimension. Rap Artist sections are submitted as follows: 1- proximal and distal resection margins, 2- appendix, 3- outside sales representative section of uninvolved small, large bowel and ileocecal valve, 4-8- tumor, 9-17- lymph node (cassettes 9-14-each cassette containing one bisected lymph node, 15-17- each cassette contains multiple lymph nodes). Sections are submitted after additional fixation. 04/29/2024 B. Received in fixative is one container labeled with the patient's name and designated Omentum. The specimen consists of a piece of yellow adipose tissue measuring 5.5 x 2.5 x 1.0cm. Area of fibrinopurulent exudates are noted. Sections reveal congestion and hemorrhagic cut surfaces. No mass lesion is identified. Rap Artist sections are submitted in two cassettes. 04/28/2024 C. Received in fixative is one container labeled with the patient's name and designated Right colon staple line. The specimen consists of two pieces of bowel tissue measuring 5.0 x 2.0 x 0.5cm and 2.5 x 3.0 x 0.6cm. A piece of bowel tissue without erma measures 5.0 x 2.0 x 0.5cm. Second piece of bowel tissue with erma measures 3.0 x 2.0 x 0.5cm. A third piece of adipose tissue is also present in the container and shows multiple erma and measures 2.5 x 1.5 x 0.5cm. Rap Artist sections are submitted in three cassettes: 1- bowel tissue without erma, 2- bowel tissue with staple, 3- adipose tissue. 04/28/2024 TC:0 CPT:66592,58568,[id number]
[2024-04-27] MEDS: Bupivacaine 0.25% 30 ML Vial (22:26)
[2024-04-27] MEDS: 0.9% Normal Saline (Pres. free 10 ML Vial (22:27)
[2024-04-27] MEDS: BUPIVACAINE LIPOSOME/PF 20 ML VIAL OPERA.SITE (22:27)
[2024-04-28] VITALS (17 sets, daily range): BP systolic 111–137; BP diastolic 67–82; PULSE 77–92; RESP 14–26; TEMP 36.4–38; O2SAT 91–99; BMI 31.1
[2024-04-28] MEDS: Lactated Ringers 1,000 ML 15 ML IV (01:11)
--- NOTE | 2024-04-28 02:54 | OP.PCM_ITS ---
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 Community Relations Liaison: [place] Tasks completed by first front ventilator: Opening & closing, Trocar and Retracting Type of Anesthesia: General/Supplemental RN Documented Start/Stop Times: Operation Date: 04/27/24 22:05 Case Time Anesthesia Start 04/27/24 21:33 Into Room 04/27/24 21:33 Procedure Start 04/27/24 22:09 Procedure End 04/28/24 02:51 Anesthesia End 04/28/24 03:12 Out of Room 04/28/24 03:12 Into Recovery 04/28/24 03:13 Out of Recovery 04/28/24 03:37 Procedure Start Time: 22:09 Procedure Stop Time: 02:51 Select all DRAINS/GRAFTS/IMPLANTS that apply: Drains Drain details: 15 Tajik round Cresencio drain Estimated Blood Loss: 100 Specimen collected: Yes Description of specimen(s) removed: 1. Right colon 2. Staple line 3. Omental biopsy Description of surgery: After appropriate identification in the preoperative holding area the patient was brought to the operating room where he was positioned supine in the operating room table. There he underwent induction of general anesthesia. He was administered preoperative antibiotics by emergency medicine. A Muñiz catheter was then placed for accurate ins and outs monitoring. Anesthesia placed a orogastric tube for gastric decompression. A formal timeout was conducted to confirm patient and procedure and the procedure was begun with a Torres entry in the supraumbilical position and placement of a 12 mm balloon trocar. Pneumoperitoneum was established at 15 mmHg and an inspection of the peritoneum was made. There was no evidence of inadvertent injury to the viscera below from our entry. Inspection of the liver (only the left lobe of the liver was immediately visible given shrouding from the omentum of the right lobe) did not reveal any mass lesions that could be concerning for metastatic deposits. I proceeded with placement of additional ports and placed 5 mm trocars in the irving prapubic and left lower quadrant positions. Before proceeding with this port placement I performed a bilateral TAP block using a solution of Exparel, bupivacaine, and saline to instill 80 mL in evenly measured aliquots under laparoscopic direction. I then placed a final 5 mm port in the epigastric region approximately 10 cm cephalad to our Torres entry. With the [address] as described, the patient was placed with Trendelenburg positioning and I began to mobilize the colon in a etrjqhl-fs-[id number] fashion by opening the peritoneal reflection along the right paracolic gutter using the laparoscopic LigaSure device. In doing so we entered the avascular plane between the colon and the retroperitoneum atop Gerota's fascia inferiorly. I continued this mobilization until we reached the liver. More inferiorly I also performed some limited mobilization of the terminal ileum where there were a few adhesions to the pelvic sidewall with the mesoappendix. Patient was then positioned in reverse Trendelenburg and the hepatic flexure was mobilized with the use of the laparoscopic ligature device between the colon and the overlying omentum. I then checked overall mobility of the right colon and found it appeared to reach to our supraumbilical port site. On reaching this observation, I made the decision to extracorporealize the right colon via a limited midline incision. A medium size Gerardo wound protector was placed and our specimen was delivered through this opening. However, our mobility proved somewhat more limited than I initially anticipated so I extended the incision approximately 4 cm further superiorly and placed the large Gerardo wound protector. I then proceeded to develop the initial dissection with some additional blunt dissection of the colon off the retroperitoneum. Next I determined our proximal and distal transection points. A 75 mm JACOB stapler was used to make these transections of the ileum and transverse colon, respectively. I then set about dividing patient's small bowel mesentery and mesocolon with a laparoscopic LigaSure taking care to try to maintain hemostasis but stay low on the mesentery for adequate lymph node harvest. I found numerous adhesions between the adjacent mesocolons of the ascending and transverse colons. The source of these adhesions was somewhat unclear. I did identify the sweep of the duodenum as I began dividing the transverse mesocolon and the superior aspect of the surgical cavity and took care to protect it with this division. Then nearing completion of the mesocolon division I sought the ileocolic vessel. This vessel was skeletonized and ligated with application of a Hem-o-lillian clip as well as I performed a stick tie of the vessel using 2-0 silk as a ligature. The specimen was passed off the field for pathologic processing. I then aligned the remaining ileum (confirming a flat lie of the mesentery) and transverse colon- taking care to remove some intervening pericolonic fat from the tinea. A ayov-hh-ashy, functional end stapled ileocolonic anastomosis was then produced with a third firing of our JACOB stapler. The common channel was reoriented perpendicularly to our original staple lines and was closed with a TX 60 mm stapler. The staple line was hemostatic. The mesenteric defect between the colon and small bowel was left open. A crotch stitch was placed with a 3-0 silk stitch. Satisfied with our anastomosis the bowel was returned to the peritoneum. I then irrigated the abdomen with warm sterile saline and suctioned the effluent free. There were no signs of bleeding with this intervention. I did encounter what appeared to be some infarcted omentum in the right upper quadrant and elected to sample this area for pathology using a LigaSure device to take a margin hemostatically. This was passed off the field was appropriate labeling. After confirming hemostasis I removed the wound protector and began closure of the abdomen. Operating personnel changed gowns and gloves to minimize risk of contamination. Just prior to closure of the fascia I opted to place a 19 Tajik round Cresencio drain along the right paracolic gutter and brought it out through our suprapubic port site secured at the skin with a 3-0 nylon suture. Then the specimen extraction site was closed with #1 PDS in a bidirectional fashion from the corners and tying in the middle.The subcutaneous layer was irrigated above the fascia and the skin was closed with skin erma. The remaining 5 mm port sites were also closed with skin erma. Dressings were applied and the patient's Muñiz catheter was maintained as patient was awoken from general anesthetic without complication. He was taken to PACU for ongoing recovery. Surgical Findings: ? Abundant visceral fatty tissue ? Numerous adhesions 20 mm omentum as well as colocolonic adhesions between the adjacent mesocolons Complications Complications: No Admit VTE Documentation VTE Mechan Device Prophylaxis: SCD's
--- NOTE | 2024-04-28 03:21 | PCM.POST.ANE ---
Anesthesia: Postop Eval I Current Vital Signs Temperature: 97.7 F Pulse Rate: 77 Blood Pressure: 115/82 Respiratory Rate: 16 Pulse Ox: 99 Oxygen Delivery Method: Simple Mask Oxygen Flow Rate (L/min): 8 Assessment Airway patent: Yes Spontaneous unlabored respirations: Yes Mental status: Asleep nausea: No Vomiting: No Anesthesia Complication: No Fluid Hydration Crystalloid volume administer (ml): 1,600 Total IV fluid infused: 1,600 Progress Note Anesthesia document: Postop Eval 1 completed: Yes
--- NOTE | 2024-04-28 03:30 | PCM.POSTANE2 ---
Anesthesia Postop Eval I Sum Postop Eval Completion status Anesthesia document: Postop Eval 1 completed: Yes Anesthesia Postop Eval I Summary Anesthesia Postop Eval I Summary: Anesthesia Postop Eval I: Assessment Summary Airway patent Yes 04/28/24 03:22 Spontaneous unlabored Yes 04/28/24 03:22 respirations Mental status Asleep 04/28/24 03:22 nausea No 04/28/24 03:22 Vomiting No 04/28/24 03:22 Anesthesia Postop Eval I: Fluid Summary Crystalloid volume administer 1,600 04/28/24 03:22 (ml) Colloids volume administered ( ml) Blood Product volume administered (ml) Total IV fluid infused 1,600 04/28/24 03:22 Anesthesia Postop Eval I: Summary Notes Anesthesia Complication No 04/28/24 03:22 Anesthesia Complication Comment: Post-operative progress note Anesthesia: Postop Eval II Evaluation Mental status: Asleep (Arousable) Pain Level: 0 nausea: No Vomiting: No Progress Note Post-operative progress note: 3 l/m nasal canula Complications Anesthesia Complication: No
[2024-04-28] MEDS: 0.9% Normal Saline (1000mL) 1,000 ML 75 ML IV ×2 (04:00→21:49)
[2024-04-28] MEDS: 0.9% Saline Lock 10 ML Syringe IV ×6 (04:17→22:02)
[2024-04-28] MEDS: HYDROmorphone 0.5 MG/0.5 ML SYRINGE IV ×2 (04:17→08:20)
[2024-04-28 05:36] LABS: Absolute Lymphocyte Count 0.55 X10^3/uL (0.83-4.51); Absolute Neutrophil Count 9.7 X10^3/uL (2.0-7.7); Basophil# 0.03 X10^3/uL; Basophil% 0.3 % (0-1); Hematocrit 33.5 % (40-54); Hemoglobin 10.8 g/dL (13.0-16.5); Lymphocyte # 0.55 X10^3/ul (0.83-4.51); Lymphocyte % 4.9 % (19-41); Mean Corp Hgb Conc 32.2 g/dL (32-36); Mean Corpuscular Hgb 27.2 pg (27.0-32.0); Mean Corpuscular Volume 84.4 fL (80-94); Mean Platelet Vol. 11.3 fl (6.2-12.0); Monocyte# 0.79 X10^3/uL; Monocyte% 7.1 % (0-10); NRBC Flagged by Analyzer 0 % (0-5); Neutrophil # 9.71 X10^3/uL (2.7-7.7); Neutrophil % 87.3 % (47-70); POSITIVE DIFFERENTIAL YES; Platelet Count 290 K/mm3 (150-450); RBC Distribution Width CV 14.8 % (11.6-14.6); RBC Distribution Width SD 45.5 fl (35.1-43.9); Red Blood Count 3.97 M/mm3 (4.6-6.2); White Blood Count 11.1 K/mm3 (4.4-11.0)
[2024-04-28] MEDS: Piperacil/Tazobactam 3.375 GM in 0.9% Normal Saline (50mL MB+) 50 ML IV ×3 (06:02→22:01)
[2024-04-28 06:20] LABS: Anion Gap 4 (5-15); BUN 7 mg/dL (7-18); BUN/Creat Ratio 9.1 RATIO (10-20); Calcium,Total 8.4 mg/dL (8.5-10.1); Chloride 109 mmol/L (98-107); Creatinine, Serum 0.77 mg/dL (0.70-1.30); EST Glomerular Filtration Rate 112 mL/min (>60); Est Glom Filt Rate - Afr Amer 135 mL/min (>60); Estimated Creatinine Clearance 132.94 ml/min; Glucose 183 mg/dL (74-106); Magnesium 2.1 mg/dL (1.6-2.6); Phosphorus 1.8 mg/dL (2.5-4.9); Potassium 3.8 mmol/L (3.5-5.1); Sodium Level 139 mmol/L (136-145)
[2024-04-28] MEDS: Ketorolac 15 MG/ML Vial IV ×3 (09:31→17:56)
--- NOTE | 2024-04-28 09:43 | PCM.PN.SRG ---
Subjective Subjective Patient evaluated resting comfortably in bed. He notes incisional soreness. He denies any nausea, vomiting, fever. He has not been out of bed yet. His urine output is good via Muñiz. ENEIDA output is serosanguineous. Objective Data Objective Data Vital Signs: Vital Signs Temp Pulse Resp BP Pulse Ox O2 Del Method O2 Flow Rate 98.6 F 83 18 111/72 97 Nasal Cannula 2 04/28/24 07:43 04/28/24 07:43 04/28/24 08:15 04/28/24 07:43 04/28/24 07:43 04/28/24 08:15 04/28/24 08:15 Oxygen Flow Rate (L/min) 2 Oxygen Delivery Method Nasal Cannula Weight: 223 lb 5.252 oz Body Mass Index (BMI) 31.1 Intake & Output: Intake and Output for Last 24 Hours 04/26/24 04/27/24 04/28/24 23:59 23:59 23:59 Intake Total 100 / 100 1042.25 / 1042.25 Output Total 910 / 910 Balance 100 / 100 132.25 / 132.25 Lab / Micro Data 04/28/24 05:14 04/28/24 05:14 Labs: Laboratory Results - last 24 hr 04/27/24 18:00: WBC 7.9, RBC 4.18 L, Hgb 11.2 L, Hct 35.0 L, MCV 83.7, MCH 26.8 L, MCHC 32.0, RDW Std Deviation 44.8 H, RDW Coeff of Ana 14.6, Plt Count 297, MPV 10.8, Immature Gran % (Auto) 0.400, Neut % (Auto) 73.7 H, Lymph % (Auto) 14.8 L, [place]rell % (Auto) 9.6, Eos % (Auto) 0.9, Baso % (Auto) 0.6, Absolute Neuts (auto) 5.9, Absolute Lymphs (auto) 1.17, Nucleated RBC % 0, Sodium 140, Potassium 3.5, Chloride 106, Carbon Dioxide 28.0, Anion Gap 5, BUN 7, Creatinine 0.80, Estim Creat Clear Calc 126.18, Est GFR (MDRD) Af Amer 129, Est GFR (MDRD) Non-Af 107, BUN/Creatinine Ratio 8.7 L, Glucose 104, Lactic Acid 1.2, Calcium 9.1, Total Bilirubin 0.50, AST 9 L, ALT 13 L, Alkaline Phosphatase 81, Troponin I High Sens 4, Total Protein 6.6, Albumin 3.2, Globulin 3.4, Albumin/Globulin Ratio 0.9, Lipase 37 04/28/24 05:14: WBC 11.1 H, RBC 3.97 L, Hgb 10.8 L, Hct 33.5 L, MCV 84.4, MCH 27.2, MCHC 32.2, RDW Std Deviation 45.5 H, RDW Coeff of Ana 14.8 H, Plt Count 290, MPV 11.3, Immature Gran % (Auto) 0.400, Neut % (Auto) 87.3 H, Lymph % (Auto) 4.9 L, Tyrrell % (Auto) 7.1, Eos % (Auto) 0.0, Baso % (Auto) 0.3, Absolute Neuts (auto) 9.7 H, Absolute Lymphs (auto) 0.55 L, Nucleated RBC % 0, Sodium 139, Potassium 3.8, Chloride 109 H, Carbon Dioxide 26.0, Anion Gap 4 L, BUN 7, Creatinine 0.77, Estim Creat Clear Calc 132.94, Est GFR (MDRD) Af Amer 135, Est GFR (MDRD) Non-Af 112, BUN/Creatinine Ratio 9.1 L, Glucose 183 H, Calcium 8.4 L, Phosphorus 1.8 L, Magnesium 2.1 Radiography Diagnostic Testing: Radiology Impression Abdomen/Pelvis CT 04/27/24 17:49 IMPRESSION: Colocolic intussusception. No obstruction. Electronically Signed: Dipak Stewart MD at 19:07 EST , ADDENDUM: 04/27/241917 IMPRESSION: Colocolic intussusception. No obstruction. N.B. : The above Results were Read Back by Dipak Stewart MD to Gregoria Treviño DO, and understanding confirmed on 04/27/2024 19:11:47 (ET). Electronically Signed: Dipak Stewart MD at 19:07 EST , Physical Exam GI GI Narrative: Abdomen- soft, hypoactive bowel sounds. Incision c/d/i. Slightly distended. ENEIDA drain intact with serosanguineous output Assessment & Plan Assessment/Plan (1) Intussusception: PLAN: I am following this patient in conjunction with Dr. Coffman. He has independently evaluated this patient. Labs reviewed. WBC slightly elevated Will continue Zosyn for 48 hours after procedure Replace phos Start sips and chips (no carbonation) Remove Muñiz Encourage ambulation and I.S. Leave ENEIDA in place Continue IV fluids We will continue to monitor this patient Charges/Coding Visit Charges Inpatient E&M: 70032 Subs Hosp L1 (post-op; no charge)
[2024-04-28] MEDS: Pantoprazole Sodium 40 MG in 0.9% Normal Saline (100mL MB+) 100 ML 330 MG IV (10:42)
[2024-04-28] MEDS: Potassium Phosphate 30 MM in 0.9% Normal Saline (250mL Bag) 250 ML 42 MM IV (11:17)
--- NOTE | 2024-04-28 14:23 | CASEMGMT ---
OSCAR VERMA Assessment: Face to Face with pt for initial transition planning/care coordination assessment. RN LUCI introduced self and role at [facility], pt voices understanding and consents to assessment. Pt is A&O x4 and answers all questions appropriately at this time. Pt sitting up in chair with and dtr at bedside. Pt agreeable to assessment with family present. Care providers, pharmacy, and demographics verified/updated. Admitting Dx: colon intussusception Strata Score: 1 PCP:Lenin Specialists:Denies Preferred Pharmacy:[facility] Insurance: MMO Prescription Benefit: yes LNOK: Francia Willett, Living Arrangements: Pt lives with in a single story home with 3 steps to enter. Pt reports he is I in ADLs and denies concerns at home. Transportation: Pt drives self and denies concerns with transportation. DME:Denies HHC/SNF: Denies hx of Pt states no concerns with going home at time of dc. Pt currently has a ENEIDA drain in place. Pt states no further concerns/needs. CM to follow. Advised pt to ask CM if any further questions/concerns/needs arise, voices understanding. Pt Goal: Home Plan: Home [place] CM
--- NOTE | 2024-04-28 16:24 | NURSING ---
All documentation by nursing administrator Aurora Fontanez reviewed by nursing student Nahed TOURE, RN.
--- NOTE | 2024-04-28 16:52 | NURSING ---
1615-temp 100.4. pt states he does not feel feverish. room is warm and pt has several covers on. covers removed and temp turned down. will recheck in approx 30 minutes
--- NOTE | 2024-04-28 18:27 | NURSING ---
Addendum entered by Linda Copeland 04/28/24 18:36: DR FRYE WOULD LIKE TO BE KEPT INFORMED, NO NEW ORDERS AT THIS TIME, PT REMAINS ON ZOSYN. Original Note: TEXT SENT TO DR FRYE. LOW GRADE TEMP, THOUGHT IT WAS POSSIBLY DUE TO VERY WARM ROOM AND SEVERAL COVERS. 1615 (T-100.4). COVERS REMOVED AND THERMOSTAT TURNED DOWN. 1715 (T-99.7). 1800 (T-100.3). ROOM STILL WARM, THERMOSTAT TURNED DOWN MORE PER PT REQUEST. PT AMBULATING HALLS, BS (+), NO FLATUS. REST OF VS STABLE
[2024-04-29] VITALS (8 sets, daily range): BP systolic 114–139; BP diastolic 75–84; PULSE 87–104; RESP 14–20; TEMP 36.9–37.6; O2SAT 92–98
[2024-04-29] MEDS: Ketorolac 15 MG/ML Vial IV ×5 (00:10→22:58)
[2024-04-29] MEDS: Piperacil/Tazobactam 3.375 GM in 0.9% Normal Saline (50mL MB+) 50 ML IV ×3 (05:02→22:47)
[2024-04-29 06:42] LABS: Absolute Lymphocyte Count 0.82 X10^3/uL (0.83-4.51); Absolute Neutrophil Count 8.4 X10^3/uL (2.0-7.7); Basophil# 0.03 X10^3/uL; Basophil% 0.3 % (0-1); Eosinophil# 0.02 X10^3/uL; Eosinophils% 0.2 % (0-5); Hematocrit 32.9 % (40-54); Hemoglobin 10.4 g/dL (13.0-16.5); Lymphocyte # 0.82 X10^3/ul (0.83-4.51); Mean Corp Hgb Conc 31.6 g/dL (32-36); Mean Corpuscular Hgb 26.7 pg (27.0-32.0); Mean Corpuscular Volume 84.4 fL (80-94); Mean Platelet Vol. 11.6 fl (6.2-12.0); Monocyte# 0.87 X10^3/uL; Monocyte% 8.5 % (0-10); NRBC Flagged by Analyzer 0 % (0-5); Neutrophil % 82.5 % (47-70); Platelet Count 263 K/mm3 (150-450); RBC Distribution Width CV 15.4 % (11.6-14.6); White Blood Count 10.2 K/mm3 (4.4-11.0)
[2024-04-29 06:54] LABS: Anion Gap 7 (5-15); BUN 11 mg/dL (7-18); BUN/Creat Ratio 13.5 RATIO (10-20); Calcium,Total 8.4 mg/dL (8.5-10.1); Chloride 109 mmol/L (98-107); Creatinine, Serum 0.81 mg/dL (0.70-1.30); EST Glomerular Filtration Rate 105 mL/min (>60); Est Glom Filt Rate - Afr Amer 127 mL/min (>60); Estimated Creatinine Clearance 126.38 ml/min; Glucose 113 mg/dL (74-106); Phosphorus 1.6 mg/dL (2.5-4.9); Potassium 3.4 mmol/L (3.5-5.1); Sodium Level 139 mmol/L (136-145)
--- NOTE | 2024-04-29 08:30 | PCM.PN.SRG ---
Subjective Subjective Patient is evaluated resting comfortably in bed. He denies any nausea, vomiting. He did have a slightly elevated temp overnight, however dd not feel chilled or feverish. He noted that his room was extremely hot overnight. He is tolerating sips and chips. He notes passing flatus. Negative bowel movement. He notes abdominal discomfort. He is urinating well. He states he ambulated in the hallway multiple times yesterday and sat in the chair. Objective Data Objective Data Vital Signs: Vital Signs Temp Pulse Resp BP Pulse Ox O2 Del Method O2 Flow Rate 99.2 F H 97 14 117/79 96 Room Air 2 04/29/24 07:47 04/29/24 07:47 04/29/24 07:47 04/29/24 07:47 04/29/24 08:09 04/29/24 08:09 04/28/24 10:01 Oxygen Flow Rate (L/min) 2 Oxygen Delivery Method Room Air Weight: 223 lb 5.252 oz Body Mass Index (BMI) 31.1 Intake & Output: Intake and Output for Last 24 Hours 04/27/24 04/28/24 04/29/24 23:59 23:59 23:59 Intake Total 100 / 100 2512.25 / 2512.25 140 / 140 Output Total 1579 / 1579 18 / 18 Balance 100 / 100 933.25 / 933.25 122 / 122 Lab / Micro Data 04/29/24 05:56 04/29/24 05:56 Labs: Laboratory Results - last 24 hr 04/29/24 05:56: WBC 10.2, RBC 3.90 L, Hgb 10.4 L, Hct 32.9 L, MCV 84.4, MCH 26.7 L, MCHC 31.6 L, RDW Std Deviation 47.0 H, RDW Coeff of Ana 15.4 H, Plt Count 263, MPV 11.6, Immature Gran % (Auto) 0.500, Neut % (Auto) 82.5 H, Lymph % (Auto) 8.0 L, [place] % (Auto) 8.5, Eos % (Auto) 0.2, Baso % (Auto) 0.3, Absolute Neuts (auto) 8.4 H, Absolute Lymphs (auto) 0.82 L, Nucleated RBC % 0, Sodium 139, Potassium 3.4 L, Chloride 109 H, Carbon Dioxide 23.0, Anion Gap 7, BUN 11, Creatinine 0.81, Estim Creat Clear Calc 126.38, Est GFR (MDRD) Af Amer 127, Est GFR (MDRD) Non-Af 105, BUN/Creatinine Ratio 13.5, Glucose 113 H, Calcium 8.4 L, Phosphorus 1.6 L, Magnesium 2.0 Physical Exam GI GI Narrative: Abdomen- soft, slight tenderness to palpation. ENEIDA drain intact with serosanguineous fluid noted. Incision c/d/i. No erythema or infection noted. Very active bowel sounds. Assessment & Plan Assessment/Plan (1) Intussusception: PLAN: I am following this patient in conjunction with Dr. Coffman. He has independently evaluated this patient. Labs reviewed. Replace potassium and phos Repeat labs tomorrow Increase diet to clear liquids Continue ambulation and I.S Keep ENEIDA drain intact until bowel function. Possibly remove tomorrow. We will continue to monitor this patient He is making excellent progress Charges/Coding Visit Charges Inpatient E&M: 28444 Subs Hosp L1 (post-op; no charge)
[2024-04-29] MEDS: Pantoprazole Sodium 40 MG in 0.9% Normal Saline (100mL MB+) 100 ML 330 MG IV (08:41)
[2024-04-29] MEDS: Potassium Phosphate 30 MM in 0.9% Normal Saline (250mL Bag) 250 ML 42 MM IV (09:09)
[2024-04-29] MEDS: 0.9% Saline Lock 10 ML Syringe IV ×3 (12:29→22:58)
[2024-04-30 01:12] VITALS: BP 122/75; PULSE 77; RESP 18; TEMP 37.2; O2SAT 92
[2024-04-30 03:53] VITALS: BP 124/85; PULSE 94; RESP 18; TEMP 37.1; O2SAT 93
[2024-04-30 06:06] LABS: Absolute Lymphocyte Count 0.97 X10^3/uL (0.83-4.51); Absolute Neutrophil Count 6.2 X10^3/uL (2.0-7.7); Basophil# 0.04 X10^3/uL; Basophil% 0.5 % (0-1); Eosinophil# 0.11 X10^3/uL; Eosinophils% 1.4 % (0-5); Hematocrit 30.7 % (40-54); Hemoglobin 9.7 g/dL (13.0-16.5); Lymphocyte # 0.97 X10^3/ul (0.83-4.51); Lymphocyte % 12.1 % (19-41); Mean Corp Hgb Conc 31.6 g/dL (32-36); Mean Corpuscular Hgb 27.2 pg (27.0-32.0); Mean Platelet Vol. 11.5 fl (6.2-12.0); Monocyte# 0.64 X10^3/uL; NRBC Flagged by Analyzer 0 % (0-5); Neutrophil # 6.22 X10^3/uL (2.7-7.7); Neutrophil % 77.4 % (47-70); Platelet Count 251 K/mm3 (150-450); RBC Distribution Width CV 15.3 % (11.6-14.6); RBC Distribution Width SD 47.8 fl (35.1-43.9); Red Blood Count 3.57 M/mm3 (4.6-6.2)
[2024-04-30] MEDS: Piperacil/Tazobactam 3.375 GM in 0.9% Normal Saline (50mL MB+) 50 ML IV ×2 (06:33→13:48)
[2024-04-30] MEDS: 0.9% Saline Lock 10 ML Syringe IV (06:33)
[2024-04-30] MEDS: Ketorolac 15 MG/ML Vial IV (06:33)
[2024-04-30 06:49] LABS: Anion Gap 5 (5-15); BUN 10 mg/dL (7-18); BUN/Creat Ratio 13.2 RATIO (10-20); Calcium,Total 8.7 mg/dL (8.5-10.1); Chloride 110 mmol/L (98-107); Creatinine, Serum 0.76 mg/dL (0.70-1.30); EST Glomerular Filtration Rate 114 mL/min (>60); Est Glom Filt Rate - Afr Amer 138 mL/min (>60); Estimated Creatinine Clearance 134.69 ml/min; Glucose 101 mg/dL (74-106); Magnesium 2.1 mg/dL (1.6-2.6); Phosphorus 1.8 mg/dL (2.5-4.9); Potassium 3.4 mmol/L (3.5-5.1); Sodium Level 140 mmol/L (136-145)
[2024-04-30 07:12] VITALS: O2SAT 96
[2024-04-30 07:49] VITALS: BP 117/78; PULSE 86; RESP 16; TEMP 36.6; O2SAT 97
[2024-04-30] MEDS: Potassium Phosphate 21 MM in 0.9% Normal Saline (250mL Bag) 250 ML 84 MM IV (07:54)
--- NOTE | 2024-04-30 07:55 | PN.SURG_ITS ---
Subjective Subjective Patient seen and examined during AM rounds. He reported between 5 and 6 bowel movements since yesterday but commented that they were nonbloody and just loose. He denied any difficulty with his liquid diet. Objective Data Objective Data Vital Signs: Vital Signs Temp Pulse Resp BP Pulse Ox O2 Del Method O2 Flow Rate 97.9 F 86 16 117/78 97 Room Air 2 04/30/24 07:49 04/30/24 07:49 04/30/24 07:49 04/30/24 07:49 04/30/24 07:49 04/30/24 07:49 04/28/24 10:01 Oxygen Flow Rate (L/min) 2 Oxygen Delivery Method Room Air Weight: 223 lb 5.252 oz Body Mass Index (BMI) 31.1 Intake & Output: Intake and Output for Last 24 Hours 04/28/24 04/29/24 04/30/24 23:59 23:59 23:59 Intake Total 2512.25 / 2512.25 2235.0 / 2235.0 50 / 50 Output Total 1579 / 1579 1618 / 1618 170 / 170 Balance 933.25 / 933.25 617.0 / 617.0 -120 / -120 Lab / Micro Data 04/30/24 05:36 04/30/24 05:36 Labs: Laboratory Results - last 24 hr 04/30/24 05:36: WBC 8.0, RBC 3.57 L, Hgb 9.7 L, Hct 30.7 L, MCV 86.0, MCH 27.2, MCHC 31.6 L, RDW Std Deviation 47.8 H, RDW Coeff of Ana 15.3 H, Plt Count 251, MPV 11.5, Immature Gran % (Auto) 0.600, Neut % (Auto) 77.4 H, Lymph % (Auto) 12.1 L, [place] % (Auto) 8.0, Eos % (Auto) 1.4, Baso % (Auto) 0.5, Absolute Neuts (auto) 6.2, Absolute Lymphs (auto) 0.97, Nucleated RBC % 0, Sodium 140, P otassium 3.4 L, Chloride 110 H, Carbon Dioxide 24.0, Anion Gap 5, BUN 10, Creatinine 0.76, Estim Creat Clear Calc 134.69, Est GFR (MDRD) Af Amer 138, Est GFR (MDRD) Non-Af 114, BUN/Creatinine Ratio 13.2, Glucose 101, Calcium 8.7, P hosphorus 1.8 L, Magnesium 2.1 Physical Exam Const oriented x3 and no apparent distress Resp normal respiratory effort GI GI Narrative: Decreased abdominal distention with some mild tympanitic changes in the left upper quadrant. Well?appearing midline laparotomy incision that remained approximated with skin erma but without evidence of erythema or drainage. Suprapubic ENEIDA drain with serous output. Assessment & Plan Assessment/Plan (1) Intussusception: PLAN: Patient technically postoperative day 2 from laparoscopic assisted right hemicolectomy. He has experienced return of bowel function and tolerating liquid diet without difficulty. His white blood cell count has remained within normal limits but was continued on IV Zosyn due to concern for some contamination during the creation of his anastomosis. His ENEIDA drain remains serous in character. Will plan to advance his diet and if he tolerates this diet advance discontinue his operative drain and consider discharge to home. Ruddy Coffman MD General Surgery Endocrine Surgery Pager: [facility] [address] [place] [address], [address] [place] [address] Office: [phone] Charges/Coding Visit Charges Inpatient E&M: 28193 Subs Hosp L2
[2024-04-30] MEDS: Pantoprazole Sodium 40 MG in 0.9% Normal Saline (100mL MB+) 100 ML 330 MG IV (11:10)
[2024-04-30 11:35] VITALS: BP 122/81; PULSE 85; RESP 16; TEMP 36.8; O2SAT 97
[2024-04-30] MEDS: Ibuprofen 400 MG Tablet PO (11:52)
[2024-04-30 15:29] VITALS: BP 109/69; PULSE 75; RESP 16; TEMP 36.8; O2SAT 99
--- NOTE | 2024-04-30 16:36 | DCINST_ITS ---
Discharge Instructions Diet Discharge Diet: Soft diet DC O2, CPAP, BIPAP needs Home O2 Discharge instructions: No Dressing / Incision May shower in (days): 2 Ice area for (Minutes): 20 Lifting Restrictions: No lifting greater than 10 pounds for 4 weeks after surgery Dressing / Incision Call your doctor if your incision/area has: Continuous Slow Oozing, Sudden Increased Bleeding, Increased Pain/ Swelling, Increased Redness, Foul Smelling Discharge and Swelling at the incision site Call your doctor if you observe: Fever of 101 or Higher, Inability to have a bowel movement, Prolonged hiccupping and Uncontrolled pain Additional Dressing/Incision Instructions:: Please change dressing over drain site as it becomes saturated but it should seal after 48 hours Follow Up Care Please Follow Up With: Ruddy Coffman MD When: 1 to 2 weeks postop Test Results: Test results from this visit will be discussed in further detail at your follow- up appointment, if applicable. Discharge Plan Admission Admit Date/Time: 04/28/24 02:48 Primary Reason for Your Visit: Colonic intussusception Attending Provider: Ruddy Coffman Primary Care Provider: Demetrius Phelps Instructions Additional Instructions / Restrictions: Please make use of abdominal binder when ambulating about Discharge Orders/Prescriptions Prescriptions: New oxycodone 5 mg Tablet 5 mg PO Q6H PRN PRN (Reason: Pain Score 6-10) 5 Days Qty: 14 0RF Referrals / Follow Up: Demetrius Phelps DO [Primary Care Provider] - Disposition Disposition (needs filled in before D/C Order can be placed): Home, Self Care
--- NOTE | 2024-04-30 16:41 | DS.PCM_ITS ---
Providers Date of Admission: 04/28/24 Primary Care Physician: Dr. Demetrius Phelps, DO Reason For Visit: COLON INTUSSUSCEPTION Diagnosis Discharge Diagnosis (1) Intussusception: Status: Acute Code(s): K56.1 - Intussusception Plan: Patient is 54-year-old, otherwise healthy, male who presents with signs and symptoms of colocolonic intussusception beginning approximately 36 hours ago. He is markedly tender on exam but, fortunately, has no evidence of leukocytosis or CT evidence of bowel ischemia. I described the diagnosis in detail to both he and his and shared that in adults intussusception is found to be associated with a pathologic lead point and approximately 90% of cases. As such I recommended proceeding emergently for a formal right hemicolectomy with plans for immediate ileocolonic anastomosis. Relevant anatomy was discussed and they did share that infrequently operative events occur that lead us to creation of an ostomy for evacuation of waste rather than being able to create an anastomosis. I also shared how the extent of resection should be considered oncologically sound given the risk for cancer and need for adequate margins/lymph node harvest in the event pathology confirms a cancer. Given the patient has a virgin abdomen, no obstruction, and otherwise is nondistended I believe it is reasonable to proceed at least initially with a laparoscopic approach but did inform Mr. Willett that the specimen must ultimately be extracted and this would likely require a limited laparotomy incision. Following the procedure I informed Mr. Willett that he will be admitted to the hospital for ongoing care will we will look to see that he obtains adequate pain control and ultimately tolerates a regular diet with resumption of bowel function. Both he and his were given the opportunity ask questions and once these were answered the operative team was notified of my intent to proceed with hemicolectomy. Ruddy Coffman MD General Surgery Endocrine Surgery Pager: [facility] [address] [place] [address], [address] [place] [address] Office: [phone] Medications at Discharge Home Medications oxycodone 5 mg tablet 5 mg PO Q6H PRN PRN Pain Score 6-10 5 days #14 tabs 04/30/24 Hospital Course Operations colectomy (Laparoscopic assisted right hemicolectomy) Summary of Care Provided Hospital Course: Patient is a 54-year-old male who presented evening of 04/27/2024 due to complaints of progressive right-sided abdominal discomfort. His ER workup included CT imaging of the abdomen pelvis which showed evidence of colocolonic intussusception. This occasioned a surgical consult and on exam he had focal peritonitis. With this imaging and exam I recommended proceeding for emergent right hemicolectomy and given his otherwise stable clinical status I recommended we proceed with laparoscopic right hemicolectomy. After a description of the procedure and its risks and benefits he provided his consent and this procedure was undertaken late that evening into the early hours of the following morning. He was then monitored closely for pain control and encouraged in ambulation which he readily participated in as early as postoperative day 0. A Muñiz catheter was removed later postoperative day 0 and he experienced spontaneous return of micturition. He was held n.p.o. aside from sips and chips until he demonstrated bowel function which returned postoperative day 2. An operative drain was monitored closely each day as his bowel function returned but transition from serosanguineous to straight serous output. Laboratories were also monitored and a mild leukocytosis resolved and hemoglobin remained stable. By the morning of postoperative day 3 he was feeling well with minimal discomfort and experiencing regular bowel function so his diet was again advanced. He tolerated this diet advanced without issue and his drain output remained appropriate so his drain was removed. With these clinical improvements he was deemed suitable for discharge to home but we carefully reviewed postoperative wound care and activity restrictions in person before discharge was granted. I also requested that he demonstrate tolerance of 1 more medial at his advance diet. He did so without difficulty and thus the request was granted. Will plan to follow-up with patient in 1 to 2 weeks as an outpatient to confirm wound healing and review pathology. Physical Exam Const alert, oriented x3 and no apparent distress Resp normal respiratory effort GI GI Narrative: Mild distention became normal contour after patient had additional bowel activity, soft, appropriately tender to palpation, unremarkable surgical site incision remained approximated with skin erma and no evidence of drainage or erythema. Weight / BMI Weight Weight: 223 lb 5.252 oz Body Mass Index (BMI) 31.1 ABG / Lab / Microbiology Data 04/30/24 05:36 04/30/24 05:36 Laboratory: Laboratory Results - last 24 hr 04/30/24 05:36: WBC 8.0, RBC 3.57 L, Hgb 9.7 L, Hct 30.7 L, MCV 86.0, MCH 27.2, MCHC 31.6 L, RDW Std Deviation 47.8 H, RDW Coeff of Ana 15.3 H, Plt Count 251, MPV 11.5, Immature Gran % (Auto) 0.600, Neut % (Auto) 77.4 H, Lymph % (Auto) 12.1 L, Smith % (Auto) 8.0, Eos % (Auto) 1.4, Baso % (Auto) 0.5, Absolute Neuts (auto) 6.2, Absolute Lymphs (auto) 0.97, Nucleated RBC % 0, Sodium 140, P otassium 3.4 L, Chloride 110 H, Carbon Dioxide 24.0, Anion Gap 5, BUN 10, Creatinine 0.76, Estim Creat Clear Calc 134.69, Est GFR (MDRD) Af Amer 138, Est GFR (MDRD) Non-Af 114, BUN/Creatinine Ratio 13.2, Glucose 101, Calcium 8.7, P hosphorus 1.8 L, Magnesium 2.1 D/C Instructions Discharge Diet: Soft diet May shower in (days): 2 Ice area for (Minutes): 20 Call your doctor if your incision/area has: Continuous Slow Oozing, Sudden Increased Bleeding, Increased Pain/ Swelling, Increased Redness, Foul Smelling Discharge and Swelling at the incision site Call your doctor if you observe: Fever of 101 or Higher, Inability to have a bowel movement, Prolonged hiccupping and Uncontrolled pain Additional Dressing/Incision Instructions: Please change dressing over drain site as it becomes saturated but it should seal after 48 hours DC O2, CPAP, BIPAP Needs Home O2 Discharge instructions: No Please Follow Up With: Ruddy Coffman MD When: 1 to 2 weeks postop Meaningful Use Info Meaningful Use Meaningful Use Diagnoses (Choose all that apply): None applicable Ischemic Stroke Statin Dosing Therapy Reference: STATIN DOSE THERAPY REFERENCE: * Patients > 75 years receive moderate or high dose statin therapy. * Patients 75 years or YOUNGER should receive HIGH intensity statin dose unless contraindicated. You will be required to document reason for non-treatment if statin daily dose does not meet guidelines. HIGH DOSE STATIN THERAPY DAILY Atorvastatin > than or = to 40 mg Rosuvastatin > than or = to 20 mg Amlodipine + Atorvastatin > than or = to 2.5/40 mg Ezetimibe + Simvastatin 10/80 mg Simvastatin 80mg Discharge Plan Admission Admit Date/Time: 04/28/24 02:48 Primary Reason for Your Visit: Colonic intussusception Attending Provider: Ruddy Coffman Primary Care Provider: Demetrius Phelps Instructions Additional Instructions / Restrictions: Please make use of abdominal binder when ambulating about Discharge Orders/Prescriptions Prescriptions: New oxycodone 5 mg Tablet 5 mg PO Q6H PRN PRN (Reason: Pain Score 6-10) 5 Days Qty: 14 0RF Referrals / Follow Up: Demetrius Phelps DO [Primary Care Provider] - Disposition Disposition (needs filled in before D/C Order can be placed): Home, Self Care Charges/Coding Visit Charges Inpatient E&M: 82450 Disch Hosp
== END 2024-04-30 17:57 | disposition home or self-care (01) | DRG 329 ==
LOC: ED 19:42 → MS3 20:48
PROVIDERS: Physician Assistant; Admitting Provider Surgery; Emergency Provider Emergency Medicine; PCP Family Medicine; Visit Provider Surgery
PROC: (CPT 44205; principal; 2024-04-27 21:45)
DX: K56.1 Intussusception (principal); K65.9 Peritonitis, unspecified; F17.290 Nicotine dependence, other tobacco product, uncomplicated; K66.0 Peritoneal adhesions (postprocedural) (postinfection)
CPT/HCPCS: 36415; 74177; 80048; 80053; 81002; 83605; 83690; 83735; 84100; 84484; 85025; 88305; 88307; 88341; 88342; 93005; 94668; 99284; 99406; A4648; Q9967; A4216; J0666; J2405

== ENCOUNTER → 2024-05-05 | Outpatient (CLI) | payer OTHER, SELFPAY ==
[2024-05-07 11:07] LABS: Carcinoembryonic Antigen 8.5 ng/mL (0.0-4.7)
== END | disposition home or self-care (01) ==
LOC: LAB 15:58
PROVIDERS: PCP Family Medicine; Referring Provider Surgery; Visit Provider Surgery
DX: C18.9 Malignant neoplasm of colon, unspecified (principal)
CPT/HCPCS: 36415; 82378

== ENCOUNTER 2024-05-18 06:57 | Day surgery (SDC) | payer OTHER, SELFPAY ==
[2024-05-18] VITALS (7 sets, daily range): BP systolic 103–147; BP diastolic 60–83; PULSE 76–100; RESP 14–16; TEMP 2.2–36.6; O2SAT 93–99; BMI 30.4
--- NOTE | 2024-05-18 07:42 | PCM.PRE.AN2 ---
ASA Classification* ASA Classification ASA Classification: 2 Assessment & Plan Anesthesia* Anesthesia Assessment Anesthesia Assessment: Discussed sedation and/or anesthesia options, risks, benefits, and alternatives with patient/parents/legal guardian/POA. Questions invited. The patient/parents/legal guardian/POA seems to understand and agrees to proceed with anesthesia plan. Reviewed the physical assessment, medical history, allergy history and patient home medications list prior to surgery/procedure/anesthetic and documented any changes. Performed airway and anesthesia risk assessments. Anesthesia Type Anesthesia Type: MAC History Source History Obtained from:: Patient and Chart Anesthesia Focused Assessment* Temperature: 97.8 F Pulse Rate: 76 Blood Pressure: 147/83 Respiratory Rate: 16 Pulse Ox: 99 Oxygen Delivery Method: Room Air Airway Assessment Mouth opens: >3 cm Mallampati Score: IV Teeth Condition: Dentures (Full upper and lower dentures are out.) Neck Range of motion (ROM): Full ROM Focused Labs Anesthesia Preop lab: CBC WBC 9.0 K/mm3 (4.4-11.0) 05/11/24 09:50 05/11/24 RBC 4.35 M/mm3 (4.6-6.2) L 05/11/24 09:50 05/11/24 Hgb 11.5 g/dL (13.0-16.5) L 05/11/24 09:50 05/11/24 Hct 36.4 % (40-54) L 05/11/24 09:50 05/11/24 Plt Count 400 K/mm3 (150-450) 05/11/24 09:50 05/11/24 CHEMISTRY Potassium 3.7 mmol/L (3.5-5.1) 05/11/24 09:50 05/11/24 Sodium 140 mmol/L (136-145) 05/11/24 09:50 05/11/24 Magnesium 2.0 mg/dL (1.6-2.6) 05/11/24 09:50 05/11/24 Phosphorus 3.8 mg/dL (2.5-4.9) 05/11/24 09:50 05/11/24 BUN 8 mg/dL (7-18) 05/11/24 09:50 05/11/24 Creatinine 0.84 mg/dL (0.70-1.30) 05/11/24 09:50 05/11/24 Glucose 104 mg/dL (74-106) 05/11/24 09:50 05/11/24 COAG Pre-Assessment Diagnosis/Proposed Procedure Planned Operative Procedure(s): INSERTION VASCULAR PORT RIGHT POSS LEFT Anesthesia History 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 When Was Last Pacemaker Check QUESTION #4 FULL TEXT: You/Your Family Experience fever (hyperthermia) with Anesthesia Last Oral Intake Last Oral intake: Last Oral Intake NPO since 00:00 05/18/24 07:17 Meds taken in AM with sips of water? Meds patient instructed to take am of surgery PONV PONV - graduate civil engineer: PONV - graduate civil engineer Female No 05/12/24 11:39 HX of Motion Sickness No 05/12/24 11:39 HX of N/V After Surgery No 05/12/24 11:39 Non-Smoker No 05/12/24 11:39 Duration of Surgery greater No 05/12/24 11:39 than 60 minutes Number of Risk Factors PONV Score Height & Weight Height & Weight: Anesthesia: Height & Weight Height 5 ft 11 in 05/18/24 07:17 Weight: 98.883 kg 05/18/24 07:17 Body Mass Index (BMI) 30.4 05/18/24 07:17 Respiratory Assessment Respiratory Assessment - graduate civil engineer: Respiratory Tract Infection Hx - graduate civil engineer Hx Respiratory Tract Infection No 05/12/24 11:39 STOP Sleep Apnea STOP Sleep Apnea - graduate civil engineer: STOP Sleep Apnea - graduate civil engineer Hx Hypertension No 05/12/24 11:39 Hx Sleep Apnea No 05/12/24 11:39 CPAP BIPAP Do you snore loudly (louder No 05/12/24 11:39 than talking or can be heard Do you often feel tired/ No 05/12/24 11:39 fatigued/ sleepy during daytime? Has anyone observed you stop No 05/12/24 11:39 breathing during sleep? STOP Results Negative 05/12/24 11:39 QUESTION #5 FULL TEXT : Do you snore loudly (louder than talking or can be heard through closed doors)? 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 Specify any problems Hx of Preganancy in last 3 N/A 05/12/24 11:39 Months Nurse Filling Out Transfusion DSCHRIBER 05/12/24 11:39 & Questions: Date: 05/12/24 05/12/24 11:39 Time: 11:40 05/12/24 11:39 Patient unable to answer at this time (ie. confused, unrespo /Reproduction History /Reproductive History - graduate civil engineer: /Reproductive Hx- graduate civil engineer Hx Now Gestational Age (in weeks): EDC: Hx Hx Para Hx Section SAB Active Medications Active Medications: Current Medications Generic Name Dose Route Start Last Admin Trade Name Freq PRN Reason Stop Dose Admin Cefazolin Sodium 2 gm/ N/A 20 mls @ 400 mls/hr 05/18/24 08:45 IV 05/18/24 08:47 PREOP ONE PFSH Medical History Iron deficiency anemia Anemia Regional lymph node metastasis present Colon cancer Smoker Intussusception Abdominal pain Home Medications ?Medication ?Instructions ?Recorded ?Last Taken ?Type lidocaine-prilocaine 2.5 %-2.5 % 1 applic topical ONCE PRN port 05/17/24 Unknown Rx topical cream acces 30 days #30 grams ondansetron 8 mg disintegrating 8 mg PO Q8H PRN nausea and 05/17/24 Unknown Rx tablet vomiting #30 tabs prochlorperazine maleate 10 mg 10 mg PO Q6H PRN nausea and 05/17/24 Unknown Rx tablet vomiting #30 tabs Allergy/AdvReac Type Severity Reaction Status Date / Time No Known Allergies Allergy Verified 05/18/24 07:15 Family History Father Colon cancer, Onset Age: 70 Mother Diabetes Surgical History H/O hemicolectomy Social History Smoking Status: Current every day smoker tobacco type: cigars alcohol intake: never substance use type: does not use Review of Systems (Anesthesia) ROS Narrative System reviewed and no additional complaints, except as documented.
--- NOTE | 2024-05-18 08:26 | PCM.HP.BLA ---
History and Physical Date of Admission: 05/18/24 Date of Service: 05/17/24 MR#: [id number] Acct: [id number] Name: ROSALVA REBOLLEDO Rep #: [id number] : 1970 Provider: Dr. Ruddy Coffman MD Age/Sex: 54/M Location: [facility] Status: Signed Intake Vital Signs 05/11/2508:04 05/17/2511:29 Height 5 ft 11 in 5 ft 11 in Weight: 217 lb 2 oz BMI 30.2 BP 122/81 H Blood Pressure Location Rt brachial Position Sitting Respiration 18 Pulse 82 Pulse Source Monitor Temp 97.8 F Temp Source Temporal Pulse Oximetry (%) 99 Oxygen Delivery Method room air Intake Visit Reasons: PORT PLACEMENT Chief Complaint: port placement Accompanied by: Is patient in pain?: No Allergies No Known Allergies Allergy (Verified 05/17/24 14:29) Medications ?Medication ?Instructions ?Recorded ?Confirmed ?Type lidocaine-prilocaine 2.5 %-2.5 % 1 applic topical ONCE PRN port 05/17/24 05/17/24 Rx topical cream acces 30 days #30 grams ondansetron 8 mg disintegrating 8 mg PO Q8H PRN nausea and 05/17/24 05/17/24 Rx tablet vomiting #30 tabs prochlorperazine maleate 10 mg 10 mg PO Q6H PRN nausea and 05/17/24 05/17/24 Rx tablet vomiting #30 tabs PFSH Medical History (Updated 05/17/24 @ 17:[address] Ruddy Coffman MD) Iron deficiency anemia Anemia Regional lymph node metastasis present Colon cancer Smoker Intussusception Abdominal pain Surgical History H/O hemicolectomy Family History Father Colon cancer, Onset Age: 70Mother Diabetes Social History Smoking Status: Current every day smoker tobacco type: cigars alcohol intake: never substance use type: does not use HPI HPI HPI: Patient is a 54-year-old male who presents for consideration of port placement after he was diagnosed with colon cancer and isabel metastasis in the aftermath of a laparoscopic assisted right hemicolectomy by me on 04/28/2024. He presents today with his . They have met with oncology and plans are to begin chemotherapy but the date is yet to be set. He shares today that he is feeling great. He denies any pain or bowel issues. Patient has no prior history of central line placement. Patient has no pacemaker or intracardiac defibrillator. Mr. Rebolledo has no history of staph infection. Beyond consideration of port placement Mr. Rebolledo is here for consideration of possible colonoscopy. ROS General General: Yes weight change (loss) and colon cancer; No appetite, fatigue, breast cancer or weakness HEENT HEENT: No difficulty swallowing, eye injury, eye surgery, swollen glands or hoarseness Endo Endocrine: No thyroid disease, diabetes mellitus, thyroid cancer, Hair loss, heat intolerance or cold intolerance Skin Skin: No rash or changing moles Musc Musculoskeletal: No back problems, arthritis, rheumatoid arthritis, gout or joint pain Cardio Cardiovascular: No murmur, pacemaker, heart disease, atrial fibrillation, high blood pressure, heart attack, heart stent, palpitations, shortness of breat with exertion or chest pain Psych Psychiatric: No depression, anxiety or hearing voices Resp Respiratory: No shortness of breath, No sleep apnea, No cough, No COPD, No asthma, No emphysema and No wheezing Gastro Gastrointestinal: No abdominal pain, No nausea or vomiting, No diarrhea, No constipation, No blood in stool, No acid reflux, No hemorrhoids, No ulcers, No gallbladder problem and No black,tarry stools Willie Hematologic: No blood thinners, No blood disorders, No bleeding, No anemia and No blood clots Neuro Neurologic: No numbness, No tingling and No weakness Exam Const General: cooperative, comfortable and no acute distress Orientation: alert, awake and oriented x3 Chest Other: No scars, no rashes or erythema Resp Effort & Inspection: normal respiratory effort GI Other: Nondistended, crusted blood adherent to patient's midline wound, otherwise well-healing without signs of infection. Soft, nontender to palpation x 4 quadrants Assessment and Plan Assessment and Plan (1) Colon cancer: Status: Acute Comment: Patient is a 54-year-old male with colon cancer diagnosed of the hepatic flexure status post right hemicolectomy after emergent presentation for colocolonic intussusception. Unfortunately there is evidence of lymph node metastasis so he requires adjuvant chemotherapy. Also per NCCN guidelines we should plan to complete a colonoscopy to evaluate for any synchronous lesions. I have requested we plan for this procedure prior to initiating chemotherapy. Oncology confirms agreement. Plan: ? Plan for colonoscopy with 2-day bowel prep. Patient informed he will have to have a transfer driver the day of procedure. ?Plan for Port-A-Cath placement (2) Regional lymph node metastasis present: Status: Acute Comment: With evidence of lymph node metastasis, patient requires placement of Port-A-Cath. I held a lengthy conversation with patient and his today regarding the procedure as well as the necessity of maintaining sterility when the port is accessed and the risk for bacteremia/endocarditis. Patient and his spouse confirmed understanding and appreciation for the information conveyed. Patient is on the surgical schedule for tomorrow, 05/18/2024, for this port placement. As above, discussed delaying chemotherapy just slightly so we can proceed with postoperative colonoscopy to evaluate for any synchronous lesions before patient goes on to receive chemotherapy. Plan: Port placement anticipated tomorrow 05/18/2024 I have examined the patient and the H&P has been reviewed. There are no clinical changes since date of exam.
[2024-05-18] MEDS: Cefazolin 2 GM in Syringe IV (09:03)
[2024-05-18] MEDS: Bupiv/Epi 0.25% 30 ML Vial (09:26)
--- NOTE | 2024-05-18 09:52 | PCM.OPRPT ---
Procedures Cardiovascular CF Procedures [id number]: [id number] Insert tunneled cv cath Operative Report (Standard) Operative Information Date of Procedure: 05/18/24 Pre-Operative Diagnosis: Colon cancer with lymph node metastasis requiring durable venous access for administration of chemotherapy Post-Operative Diagnosis: Same Surgery/Procedure Performed: Ultrasound and fluoroscopic guided placement of 8 Nepalese right internal jugular Port-A-Cath flight simulator teacher: No Type of Anesthesia: MAC/Supplemental RN Documented Start/Stop Times: Operation Date: 05/18/24 08:45 Case Time Into Pre-Op 05/18/24 07:03 Out of Pre-Op 05/18/24 08:43 Anesthesia Start 05/18/24 08:45 Into Room 05/18/24 08:45 Procedure Start 05/18/24 09:16 Procedure End 05/18/24 09:49 Anesthesia End 05/18/24 09:55 Out of Room 05/18/24 09:55 Into Recovery 05/18/24 09:57 Into Phase II Recovery 05/18/24 10:19 Out of Recovery 05/18/24 10:19 Procedure Start Time: 09:16 Procedure Stop Time: 09:49 Select all DRAINS/GRAFTS/IMPLANTS that apply: Implanted device (8 Nepalese PowerPort ISP MRI implantable port) Implanted device details: Reference [id number], lot [id number] Estimated Blood Loss: 5 Specimen collected: No Description of surgery: After appropriate identification in the preoperative holding area the patient was brought to the operating room. There he was administered preoperative antibiotics and positioned supine on the operating room table. Once sedation was begun, the upper chest and lower cervical region were prepped and draped in usual sterile fashion. A formal timeout was then conducted to confirm both the patient and procedure. Ultrasound was used to localize the right internal jugular vein. Then a wheal of quarter percent bupivacaine with epinephrine was raised superficially in this location and the vein was accessed with 1 attempt under direct ultrasound guidance using a Seldinger technique and a standard 035 guidewire was placed. Next the position of the port pocket was determined and again local anesthetic was used to anesthetize the area of both the pocket and the tunneling cephalad. A transverse incision 3 cm in width was made down through the subcutaneous tissue. Selective electrocautery was used to obtain hemostasis. Then with blunt dissection the port pocket was developed. The catheter was connected to the tunneler and was tunneled up to the position of the guidewire. Here the dilator and peel-away sheath were placed over the guidewire and the guidewire was removed. Position was again confirmed with fluoroscopy. The catheter length was estimated based on the external placement of a hemostat to approximate the level of the hung and the cavoatrial junction. The catheter was then fed into the sheath and slowly the sheath was peeled away as the catheter was inserted fully into the neck. Back in the chest the excess catheter was trimmed and the port was connected to the catheter. The port was tied into the pocket using 3-0 Vicryl. Function was then tested using sterile saline on a Noland needle. It was locked with 3 mL of heparinized saline (concentration 50U/5mL). The port pocket was closed with a deep dermal stitch using a running 3-0 Vicryl followed by 4-0 Monocryl subcuticular stitch. The 1 cm incision in the neck was closed with a single interrupted subcuticular stitch using 4-0 Monocryl. Dermabond was applied as a dressing. Patient was then aroused from the sedation and taken to PACU for ongoing recovery were a portable chest x-ray was obtained to confirm port positioning and exclude any pneumothorax. Surgical Findings: ? Normal vascular anatomy with port placed such that the tip resided a few centimeters beyond the right mainstem bronchus approximating the cavoatrial junction Complications Complications: No Admit VTE Documentation VTE Mechan Device Prophylaxis: SCD's
--- NOTE | 2024-05-18 09:54 | DCINST_ITS ---
Discharge Instructions Diet Discharge Diet: No restrictions Activity Discharge Activity: May Shower Dressing / Incision Call your doctor if your incision/area has: Continuous Slow Oozing, Sudden Increased Bleeding, Increased Pain/ Swelling, Increased Redness, Foul Smelling Discharge and Swelling at the incision site Call your doctor if you observe: Fever of 101 or Higher and Uncontrolled pain Cleanse incision/area with: Soap & Water Follow Up Care Test Results: Test results from this visit will be discussed in further detail at your follow- up appointment, if applicable. Discharge Plan Admission Primary Reason for Your Visit: Port placement Attending Provider: Ruddy Coffman Primary Care Provider: Demetrius Phelps Instructions Print Language: Lebanese Discharge Orders/Prescriptions Prescriptions: No Action lidocaine-prilocaine 2.5-2.5 % cream 1 applic topical ONCE PRN (Reason: port acces) 30 Days Qty: 30 2RF ondansetron 8 mg tablet,disintegrating 8 mg PO Q8H PRN (Reason: nausea and vomiting) Qty: 30 2RF prochlorperazine maleate 10 mg tablet 10 mg PO Q6H PRN (Reason: nausea and vomiting) Qty: 30 2RF Referrals / Follow Up: Demetrius Phelps DO [Primary Care Provider] - Disposition Disposition (needs filled in before D/C Order can be placed): Home, Self Care
--- NOTE | 2024-05-18 10:00 | RAD_ITS ---
EXAM: XR Chest, 1 View CLINICAL INDICATION: TECHNIQUE: Frontal view of the chest. COMPARISON: No relevant prior studies available. FINDINGS: LUNGS AND PLEURAL SPACES: See below. HEART: Unremarkable. No cardiomegaly. MEDIASTINUM: Unremarkable. Normal mediastinal contour. BONES/JOINTS: Unremarkable. No acute fracture. TUBES, LINES AND DEVICES: Right-sided MediPort placement with the distal tip in the SVC. No pneumothorax. RAD/CXR for Line Placement IMPRESSION: Right-sided MediPort placement with the distal tip in the SVC. No pneumothorax . Reading Location: [facility]
--- NOTE | 2024-05-18 10:00 | PCM.POST.ANE ---
Anesthesia: Postop Eval I Current Vital Signs Temperature: 36 F Pulse Rate: 78 Blood Pressure: 110/60 Respiratory Rate: 16 Pulse Ox: 98 Oxygen Delivery Method: Simple Mask Oxygen Flow Rate (L/min): 4 Assessment Airway patent: Yes Spontaneous unlabored respirations: Yes Mental status: Asleep nausea: No Vomiting: No Anesthesia Complication: No Fluid Hydration Crystalloid volume administer (ml): 10 Total IV fluid infused: 10 Progress Note Anesthesia document: Postop Eval 1 completed: Yes
--- NOTE | 2024-05-18 10:40 | POSTOPAN2_ITS ---
Anesthesia Postop Eval I Sum Postop Eval Completion status Anesthesia document: Postop Eval 1 completed: Yes Anesthesia Postop Eval I Summary Anesthesia Postop Eval I Summary: Anesthesia Postop Eval I: Assessment Summary Airway patent Yes 05/18/24 10:00 [email or web address] Spontaneous unlabored Yes 05/18/24 10:00 FLOATMAN.[email or web address] respirations Mental status Asleep 05/18/24 10:00 FLOATMAN.[email or web address] nausea No 05/18/24 10:00 FLOATMAN.MARCUS Vomiting No 05/18/24 10:00 FLOATMAN.MARCUS Anesthesia Postop Eval I: Fluid Summary Crystalloid volume administer 10 05/18/24 10:00 FLOATMAN.MARCUS (ml) Colloids volume administered ( ml) Blood Product volume administered (ml) Total IV fluid infused 10 05/18/24 10:00 FLOATMAN.MARCUS Anesthesia Postop Eval I: Summary Notes Anesthesia Complication No 05/18/24 10:00 FLOATMAN.[email or web address] Anesthesia Complication Comment: Post-operative progress note Anesthesia: Postop Eval II Evaluation Mental status: Awake Pain Level: 1 nausea: No Vomiting: No
--- NOTE | 2024-05-18 10:40 | PCM.POSTANE2 ---
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 MAKING MACHINE OPERATOR.[email or web address] Spontaneous unlabored Yes 05/18/24 10:00 CIGAR MAKING MACHINE OPERATOR.MARCUS respirations Mental status Asleep 05/18/24 10:00 CIGAR MAKING MACHINE OPERATOR.MARCUS nausea No 05/18/24 10:00 CIGAR MAKING MACHINE OPERATOR.MARCUS Vomiting No 05/18/24 10:00 CIGAR MAKING MACHINE OPERATOR.MARCUS Anesthesia Postop Eval I: Fluid Summary Crystalloid volume administer 10 05/18/24 10:00 CIGAR MAKING MACHINE OPERATOR.MARCUS (ml) Colloids volume administered ( ml) Blood Product volume administered (ml) Total IV fluid infused 10 05/18/24 10:00 CIGAR MAKING MACHINE OPERATOR.MARCUS Anesthesia Postop Eval I: Summary Notes Anesthesia Complication No 05/18/24 10:00 CIGAR MAKING MACHINE OPERATOR.MARCUS Anesthesia Complication Comment: Post-operative progress note Anesthesia: Postop Eval II Evaluation Mental status: Awake Pain Level: 1 nausea: No Vomiting: No
== END 2024-05-18 11:01 | disposition home or self-care (01) ==
LOC: SDC 06:59 → AC 07:01
PROVIDERS: PCP Family Medicine; Referring Provider Surgery; Visit Provider Surgery
PROC: (CPT 36561; principal; 2024-05-18 08:30)
DX: Z45.2 Encounter for adjustment and management of vascular access device (principal); C77.9 Secondary and unspecified malignant neoplasm of lymph node, unspecified; C18.3 Malignant neoplasm of hepatic flexure; F17.290 Nicotine dependence, other tobacco product, uncomplicated
CPT/HCPCS: 36561; 00532; 71045; 77001; C1894; A4216; C1788

== ENCOUNTER → 2024-05-21 | Outpatient (CLI) | payer OTHER, SELFPAY ==
--- NOTE | 2024-05-21 07:44 | CT_ITS ---
EXAM: CT Chest With Intravenous Contrast CLINICAL INDICATION: TECHNIQUE: Axial computed tomography images of the chest with intravenous contrast. This CT exam was performed using one or more of the following dose reduction techniques: automated exposure control, adjustment of the mA and/or kV according to patient size, and/or use of iterative reconstruction technique. COMPARISON: No relevant prior studies available. FINDINGS: LUNGS AND PLEURAL SPACES: Lung emphysema. 3 mm ground-glass nodule of the right major fissure. No consolidation. No pneumothorax. No significant effusion. No suspicious pulmonary nodules. HEART: Unremarkable. No cardiomegaly. No significant pericardial effusion. No significant coronary artery calcifications. BONES/JOINTS: Unremarkable. No acute fracture. No dislocation. SOFT TISSUES: Unremarkable. VASCULATURE: Unremarkable. No thoracic aortic aneurysm. LYMPH NODES: Unremarkable. No enlarged lymph nodes. LIVER: Fatty infiltration of the liver. CT/Chest WITH Contrast IMPRESSION: No suspicious pulmonary nodules. No focal consolidation. Reading [facility]
[2024-05-21] MEDS: 0.9 % NaCl (Sterile) Posiflush 10 mL IV (08:00)
[2024-05-21] MEDS: 0.9% Saline Lock 10 ML Syringe IV (08:15)
== END | disposition home or self-care (01) ==
LOC: CT 07:40
PROVIDERS: PCP Family Medicine; Referring Provider Surgery; Visit Provider Surgery
DX: C18.9 Malignant neoplasm of colon, unspecified (principal)
CPT/HCPCS: 71260; Q9967; A4216

== ENCOUNTER 2024-05-26 09:39 | Day surgery (SDC) | payer OTHER, SELFPAY ==
[2024-05-26] VITALS (7 sets, daily range): BP systolic 116–126; BP diastolic 79–89; PULSE 62–87; RESP 16; TEMP 36.1–36.2; O2SAT 97–99; BMI 31.8
--- NOTE | 2024-05-26 09:47 | PRE.ANES_ITS ---
ASA Classification* ASA Classification ASA Classification: 2 Assessment & Plan Anesthesia* Anesthesia Assessment Anesthesia Assessment: Discussed sedation and/or anesthesia options, risks, benefits, and alternatives with patient/parents/legal guardian/POA. Questions invited. The patient/parents/legal guardian/POA seems to understand and agrees to proceed with anesthesia plan. Reviewed the physical assessment, medical history, allergy history and patient home medications list prior to surgery/procedure/anesthetic and documented any changes. Performed airway and anesthesia risk assessments. Anesthesia Type Anesthesia Type: MAC Anesthesia Focused Assessment* Airway Assessment Mouth opens: >3 cm Mallampati Score: II Focused Labs Anesthesia Preop lab: CBC WBC 9.0 K/mm3 (4.4-11.0) 05/11/24 09:50 05/11/24 RBC 4.35 M/mm3 (4.6-6.2) L 05/11/24 09:50 05/11/24 Hgb 11.5 g/dL (13.0-16.5) L 05/11/24 09:50 5 Hct 36.4 % (40-54) L 05/11/24 09:50 05/11/24 Plt Count 400 K/mm3 (150-450) 05/11/24 09:50 05/11/24 CHEMISTRY Potassium 3.7 mmol/L (3.5-5.1) 05/11/24 09:50 05/11/24 Sodium 140 mmol/L (136-145) 05/11/24 09:50 05/11/24 Magnesium 2.0 mg/dL (1.6-2.6) 05/11/24 09:50 05/11/24 Phosphorus 3.8 mg/dL (2.5-4.9) 05/11/24 09:50 05/11/24 BUN 8 mg/dL (7-18) 05/11/24 09:50 05/11/24 Creatinine 0.84 mg/dL (0.70-1.30) 05/11/24 09:50 05/11/24 Glucose 104 mg/dL (74-106) 05/11/24 09:50 05/11/24 COAG Pre-Assessment Diagnosis/Proposed Procedure Planned Operative Procedure(s): COLONOSCOPY Anesthesia History 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 When Was Last Pacemaker Check QUESTION #4 FULL TEXT: You/Your Family Experience fever (hyperthermia) with Anesthesia Last Oral Intake Last Oral intake: Last Oral Intake NPO since Meds taken in AM with sips of water? Meds patient instructed to take am of surgery PONV PONV - plumbing engineering draftsperson: PONV - plumbing engineering draftsperson Female No 05/25/24 12:07 HX of Motion Sickness No 05/25/24 12:07 HX of N/V After Surgery No 05/25/24 12:07 Non-Smoker Yes 05/25/24 12:07 Duration of Surgery greater No 05/25/24 12:07 than 60 minutes Number of Risk Factors 1 05/25/24 12:07 PONV Score Low Risk 05/25/24 12:07 Height & Weight Height & Weight: Anesthesia: Height & Weight Height 5 ft 11 in 05/24/24 13:26 Respiratory Assessment Respiratory Assessment - plumbing engineering draftsperson: Respiratory Tract Infection Hx - plumbing engineering draftsperson Hx Respiratory Tract Infection No 05/25/24 12:07 STOP Sleep Apnea STOP Sleep Apnea - plumbing engineering draftsperson: STOP Sleep Apnea - plumbing engineering draftsperson Hx Hypertension No 05/25/24 12:07 Hx Sleep Apnea No 05/25/24 12:07 CPAP BIPAP Do you snore loudly (louder No 05/25/24 12:07 than talking or can be heard Do you often feel tired/ No 05/25/24 12:07 fatigued/ sleepy during daytime? Has anyone observed you stop No 05/25/24 12:07 breathing during sleep? STOP Results Negative 05/25/24 12:07 QUESTION #5 FULL TEXT : Do you snore loudly (louder than talking or can be heard through closed doors)? 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 Specify any problems Hx of Preganancy in last 3 N/A 05/25/24 12:07 Months Nurse Filling Out Transfusion VCHRISTIN 05/25/24 12:07 & Questions: Date: 05/25/24 05/25/24 12:07 Time: 12:08 05/25/24 12:07 Patient unable to answer at this time (ie. confused, unrespo /Reproduction History /Reproductive History - plumbing engineering draftsperson: /Reproductive Hx- plumbing engineering draftsperson Hx Now Gestational Age (in weeks): EDC: Hx Hx Para Hx Section SAB PFSH Medical History Iron deficiency anemia Anemia Regional lymph node metastasis present Colon cancer Smoker Intussusception Abdominal pain Home Medications ?Medication ?Instructions ?Recorded ?Last Taken ?Type lidocaine-prilocaine 2.5 %-2.5 % 1 applic topical ONCE PRN port 05/17/24 Unknown Rx topical cream acces 30 days #30 grams ondansetron 8 mg disintegrating 8 mg PO Q8H PRN nausea and 05/17/24 Unknown Rx tablet vomiting #30 tabs prochlorperazine maleate 10 mg 10 mg PO Q6H PRN nausea and 05/17/24 Unknown Rx tablet vomiting #30 tabs Allergy/AdvReac Type Severity Reaction Status Date / Time No Known Allergies Allergy Verified 05/25/24 12:05 Family History Father Colon cancer, Onset Age: 70 Mother Diabetes Surgical History Hx of surgical procedure H/O hemicolectomy Social History Smoking Status: Former smoker (Patient quit smoking April 25 2024.) alcohol intake: never substance use type: does not use Review of Systems (Anesthesia) ROS Narrative System reviewed and no additional complaints, except as documented.
--- NOTE | 2024-05-26 11:00 | COLBX_PTH ---
PATIENT: ROSALVA REBOLLEDO LOC: EN U#:[id number] AGE/SX: 54/M ROOM: RE05/26/[address]: Dr. Ruddy Coffman MD : 1970 BED: DIS: 05/26/2024 SPEC #: [id number] RECD: 05/26/24 13:12 STATUS: FIFI AAYUSH #: [id number] MALA: 05/26/24 11:[address]: Ruddy Coffman DEPT: SURGICAL PATHOLOGY RECD BY: Victoria Song ENTERED: 05/26/24 13:36 SP TYPE: COLON BX OTHR DR: Dr. Demetrius Phelps DO Tissues: Sigmoid colon biopsy Procedures: Surgery Specimen Level IV HEADER OPERATION: Colonoscopy with polypectomy and biopsy PRE-OP DIAGNOSIS: Colon cancer TISSUE SUBMITTED: Sigmoid colon polyp with polypectomy and biopsy MICROSCOPIC DIAGNOSIS Sigmoid colon polyp, polypectomy: Fragments of tubular adenoma. SJ.mr 05/27/2024 MICROSCOPIC DESCRIPTION Slides are reviewed. GROSS DESCRIPTION Received in fixative is one container labeled with the patient's name and designated Sigmoid colon poly and biopsy. The specimen consists of two irregular fragments of light barone soft tissue that in aggregate measure 0.8 x 0.2 x 0.1 cm. The specimen is totally submitted in one cassette. 05/26/2024 TC:1 CPT:58793
--- NOTE | 2024-05-26 11:17 | PCM.HP.BLA ---
History and Physical Date of Admission: 05/26/24 [facility] [address] [place], [place] [address] OFFICE VISIT Date of Service: 05/17/24 MR#: [id number] Acct: [id number] Name: ROSALVA REBOLLEDO Rep #: [id number] : 1970 Provider: Dr. Ruddy Coffman MD Age/Sex: 54/M Location: [facility] Status: Signed Intake Vital Signs 05/11/2508:04 05/17/2511:29 Height 5 ft 11 in 5 ft 11 in Weight: 217 lb 2 oz BMI 30.2 BP 122/81 H Blood Pressure Location Rt brachial Position Sitting Respiration 18 Pulse 82 Pulse Source Monitor Temp 97.8 F Temp Source Temporal Pulse Oximetry (%) 99 Oxygen Delivery Method room air Intake Visit Reasons: PORT PLACEMENT Chief Complaint: port placement Accompanied by: Is patient in pain?: No Allergies No Known Allergies Allergy (Verified 05/17/24 14:29) Medications ?Medication ?Instructions ?Recorded ?Confirmed ?Type lidocaine-prilocaine 2.5 %-2.5 % 1 applic topical ONCE PRN port 05/17/24 05/17/24 Rx topical cream acces 30 days #30 grams ondansetron 8 mg disintegrating 8 mg PO Q8H PRN nausea and 05/17/24 05/17/24 Rx tablet vomiting #30 tabs prochlorperazine maleate 10 mg 10 mg PO Q6H PRN nausea and 05/17/24 05/17/24 Rx tablet vomiting #30 tabs PFSH Medical History (Updated 05/17/24 @ 17:[address] Ruddy Coffman MD) Iron deficiency anemia Anemia Regional lymph node metastasis present Colon cancer Smoker Intussusception Abdominal pain Surgical History H/O hemicolectomy Family History Father Colon cancer, Onset Age: 70Mother Diabetes Social History Smoking Status: Current every day smoker tobacco type: cigars alcohol intake: never substance use type: does not use HPI HPI HPI: Patient is a 54-year-old male who presents for consideration of port placement after he was diagnosed with colon cancer and isabel metastasis in the aftermath of a laparoscopic assisted right hemicolectomy by me on 04/28/2024. He presents today with his . They have met with oncology and plans are to begin chemotherapy but the date is yet to be set. He shares today that he is feeling great. He denies any pain or bowel issues. Patient has no prior history of central line placement. Patient has no pacemaker or intracardiac defibrillator. Mr. Rebolledo has no history of staph infection. Beyond consideration of port placement Mr. Rebolledo is here for consideration of possible colonoscopy. ROS General General: Yes weight change (loss) and colon cancer; No appetite, fatigue, breast cancer or weakness HEENT HEENT: No difficulty swallowing, eye injury, eye surgery, swollen glands or hoarseness Endo Endocrine: No thyroid disease, diabetes mellitus, thyroid cancer, Hair loss, heat intolerance or cold intolerance Skin Skin: No rash or changing moles Musc Musculoskeletal: No back problems, arthritis, rheumatoid arthritis, gout or joint pain Cardio Cardiovascular: No murmur, pacemaker, heart disease, atrial fibrillation, high blood pressure, heart attack, heart stent, palpitations, shortness of breat with exertion or chest pain Psych Psychiatric: No depression, anxiety or hearing voices Resp Respiratory: No shortness of breath, No sleep apnea, No cough, No COPD, No asthma, No emphysema and No wheezing Gastro Gastrointestinal: No abdominal pain, No nausea or vomiting, No diarrhea, No constipation, No blood in stool, No acid reflux, No hemorrhoids, No ulcers, No gallbladder problem and No black,tarry stools Willie Hematologic: No blood thinners, No blood disorders, No bleeding, No anemia and No blood clots Neuro Neurologic: No numbness, No tingling and No weakness Exam Const General: cooperative, comfortable and no acute distress Orientation: alert, awake and oriented x3 Chest Other: No scars, no rashes or erythema Resp Effort & Inspection: normal respiratory effort GI Other: Nondistended, crusted blood adherent to patient's midline wound, otherwise well-healing without signs of infection. Soft, nontender to palpation x 4 quadrants Assessment and Plan Assessment and Plan (1) Colon cancer: Status: Acute Comment: Patient is a 54-year-old male with colon cancer diagnosed of the hepatic flexure status post right hemicolectomy after emergent presentation for colocolonic intussusception. Unfortunately there is evidence of lymph node metastasis so he requires adjuvant chemotherapy. Also per NCCN guidelines we should plan to complete a colonoscopy to evaluate for any synchronous lesions. I have requested we plan for this procedure prior to initiating chemotherapy. Oncology confirms agreement. Plan: ? Plan for colonoscopy with 2-day bowel prep. Patient informed he will have to have a pile driver operator the day of procedure. ?Plan for Port-A-Cath placement (2) Regional lymph node metastasis present: Status: Acute Comment: With evidence of lymph node metastasis, patient requires placement of Port-A-Cath. I held a lengthy conversation with patient and his today regarding the procedure as well as the necessity of maintaining sterility when the port is accessed and the risk for bacteremia/endocarditis. Patient and his spouse confirmed understanding and appreciation for the information conveyed. Patient is on the surgical schedule for tomorrow, 05/18/2024, for this port placement. As above, discussed delaying chemotherapy just slightly so we can proceed with postoperative colonoscopy to evaluate for any synchronous lesions before patient goes on to receive chemotherapy. Plan: Port placement anticipated tomorrow 05/18/2024 I have examined the patient and the H&P has been reviewed. There are no clinical changes since date of exam. Patient confirms he completed prep for today's procedure and his output is now clear. Overview of the procedure was given and patient and his have no further questions. Proceed to endoscopy suite for colonoscopy indication as above.
--- NOTE | 2024-05-26 12:07 | PCM.POST.ANE ---
Anesthesia: Postop Eval I Current Vital Signs Temperature: 97.1 F Pulse Rate: 67 Blood Pressure: 116/82 Respiratory Rate: 16 Pulse Ox: 97 Oxygen Delivery Method: Room Air Assessment Airway patent: Yes Spontaneous unlabored respirations: Yes Mental status: Awake and Calm nausea: No Vomiting: No Anesthesia Complication: No Fluid Hydration Crystalloid volume administer (ml): 60 Total IV fluid infused: 60 Progress Note Anesthesia document: Postop Eval 1 completed: Yes
--- NOTE | 2024-05-26 12:10 | OP.COLON_ITS ---
Patient Name: Marino Willett Procedure Date: 05/26/2024 11:21 AM Date of : 1970 Age: 54 Procedure: Colonoscopy Indications: Follow-up of colon cancer Providers: Ruddy Coffman MD Referring MD: Ruddy Coffman MD Medicines: See the Anesthesia note for documentation of the administered medications Patient Profile: Last Colonoscopy: none. The patient's first colonoscopy is today. Complications: No immediate complications. Estimated blood loss: Minimal. Procedure: Pre-Anesthesia Assessment: - The heart rate, respiratory rate, oxygen saturations, blood pressure, adequacy of pulmonary ventilation, and response to care were monitored throughout the procedure. After I obtained informed consent, the scope was passed under direct vision. Throughout the procedure, the patient's blood pressure, pulse, and oxygen saturations were monitored continuously. The adult colonoscope was introduced through the anus and advanced to the ileocolonic anastomosis. The colonoscopy was performed without difficulty. The patient tolerated the procedure well. The quality of the bowel preparation was adequate to identify polyps greater than 5 mm in size. The colonoscopy was performed without difficulty. Scope In: 11:30:04 AM Scope Withdrawal Time 0 hours 22 minutes 3 seconds Scope Out: 11:55:52 AM Total Procedure Duration Time 0 hours 25 minutes 48 seconds Findings: The perianal and digital rectal examinations were normal. A 5 mm, non-bleeding polyp was found in the sigmoid colon. The polyp was semi-pedunculated. The polyp was removed with a hot snare. Resection and retrieval were complete. Estimated blood loss was minimal. Non-bleeding internal hemorrhoids were found during retroflexion. The hemorrhoids were mild and Grade I (internal hemorrhoids that do not prolapse). No biopsies or other specimens were collected for this exam. The exam was otherwise without abnormality on direct and retroflexion views. Impression: - One 5 mm, non-bleeding polyp in the sigmoid colon, removed with a hot snare. Resected and retrieved. - Non-bleeding internal hemorrhoids. No specimens collected. - The examination was otherwise normal on direct and retroflexion views. Recommendation: - Discharge patient to home (via wheelchair). - Resume regular diet today. - No aspirin, ibuprofen, naproxen, or other non-steroidal anti-inflammatory drugs for 2 days after polyp removal. - Await pathology results. - Repeat colonoscopy date to be determined after pending pathology results are reviewed for surveillance based on pathology results. - Telephone my office for pathology results in 1 week. Procedure Code(s): --- Professional --- 14406, Colonoscopy, flexible; with removal of tumor(s), polyp(s), or other lesion(s) by snare technique Diagnosis Code(s): --- Professional --- D12.5, Benign neoplasm of sigmoid colon K64.0, First degree hemorrhoids C18.9, Malignant neoplasm of colon, unspecified CPT copyright 2021 [employer]. All rights reserved. The codes documented in this report are preliminary and upon grease monkey review may be revised to meet current compliance requirements. Ruddy Coffman MD 05/26/2024 12:09:37 PM This report has been signed electronically. Number of Addenda: 0 Note Initiated On: 05/26/2024 11:21 AM
--- NOTE | 2024-05-26 12:10 | OP.CCLET_ITS ---
05/26/2024 Demetrius Phelps [address] [place] [address] Re : Colonoscopy procedure for Marino Hodgen Dear Dr. Phelps This procedure was performed on Sunday, May 26, 2024. My impressions and recommendations are as follows: Impressions : - One 5 mm, non-bleeding polyp in the sigmoid colon, removed with a hot snare. Resected and retrieved. - Non-bleeding internal hemorrhoids. No specimens collected. - The examination was otherwise normal on direct and retroflexion views. Recommendations : - Discharge patient to home (via wheelchair). - Resume regular diet today. - No aspirin, ibuprofen, naproxen, or other non-steroidal anti-inflammatory drugs for 2 days after polyp removal. - Await pathology results. - Repeat colonoscopy date to be determined after pending pathology results are reviewed for surveillance based on pathology results. - Telephone my office for pathology results in 1 week. My findings are described in the full procedure note, which is enclosed. If I can be of further assistance, please feel free to contact me at Doctor phone number(s): , Work: . Sincerely, Ruddy Coffman MD 05/26/2024 12:09:37 PM This report has been signed electronically.
--- NOTE | 2024-05-26 12:15 | PCM.POSTANE2 ---
Anesthesia Postop Eval I Sum Postop Eval Completion status Anesthesia document: Postop Eval 1 completed: Yes Anesthesia Postop Eval I Summary Anesthesia Postop Eval I Summary: Anesthesia Postop Eval I: Assessment Summary Airway patent Yes 05/26/24 12:08 [email or web address] Spontaneous unlabored Yes 05/26/24 12:08 [email or web address] respirations Mental status Awake,Calm 05/26/24 12:08 [email or web address] nausea No 05/26/24 12:08 [email or web address] Vomiting No 05/26/24 12:08 [email or web address] Anesthesia Postop Eval I: Fluid Summary Crystalloid volume administer 60 05/26/24 12:08 [email or web address] (ml) Colloids volume administered ( ml) Blood Product volume administered (ml) Total IV fluid infused 60 05/26/24 12:08 [email or web address] Anesthesia Postop Eval I: Summary Notes Anesthesia Complication No 05/26/24 12:08 [email or web address] Anesthesia Complication Comment: Post-operative progress note Anesthesia: Postop Eval II Evaluation Mental status: Awake Pain Level: 0 nausea: No Vomiting: No
== END 2024-05-26 12:41 | disposition home or self-care (01) ==
LOC: EN 09:40 → AC 09:41
PROVIDERS: PCP Family Medicine; Referring Provider Surgery; Visit Provider Surgery
PROC: 0DJD8ZZ Inspection of Lower Intestinal Tract, Via Natural or Artificial Opening Endoscopic (ICD-10-PCS; CPT 45378; principal; 2024-05-26 10:55)
DX: C18.3 Malignant neoplasm of hepatic flexure (principal); C77.9 Secondary and unspecified malignant neoplasm of lymph node, unspecified; D12.5 Benign neoplasm of sigmoid colon; K64.0 First degree hemorrhoids; F17.290 Nicotine dependence, other tobacco product, uncomplicated
CPT/HCPCS: 45385; 88305; A4216; J2405

== ENCOUNTER → 2024-11-01 | Outpatient (CLI) | payer OTHER, SELFPAY ==
--- NOTE | 2024-11-01 06:40 | CT_ITS ---
PROCEDURE: CT CHEST, ABD, PEL W/CONTRAST 11/01/2024 REASON FOR EXAM: END OF RX RESTAGING COLON CANCER TECHNIQUE: Chest, abdomen and pelvis CT with intravenous contrast. Coronal and Sagittal reconstruction series were provided. One or more dose reduction techniques were used (e.g., Automated exposure control, adjustment of the mA and/or kV according to patient size, use of iterative reconstruction technique. PATIENT PREPARATION: Per protocol ORAL CONTRAST TYPE: Gastrografin CONTRAST: Isovue 370 VOLUME: 100mL RADIATION DOSE SUMMARY: DLP: 2400 mGycm COMPARISON: CT chest 05/21/2024, CT abdomen pelvis 04/27/2024. FINDINGS: CT CHEST: Hardware: Stable right chest port with port tip overlying the distal SVC. Lymph nodes: No axillary, mediastinal or hilar lymphadenopathy. Heart and Vasculature: The heart is normal in size without pericardial effusion. The great vessels are normal in caliber. No significant coronary artery or thoracic aortic calcifications. Lungs and Airways: The central airways are patent. Mild emphysema with scattered areas of scarring. Scattered, tiny sub 5 mm bilateral pulmonary nodules (for example in the right lower lobe coronal image 141 and left lower lobe coronal image 92). No pleural effusion or pneumothorax. Bones: Thoracic spondylosis. No aggressive osseous lesions. CT ABDOMEN/PELVIS: Liver: Normal in size without suspicious hepatic mass. The major portal veins are grossly patent. No biliary ductal dilation. Gallbladder: No radiopaque stones within the decompressed gallbladder. Spleen: Normal in size. Pancreas: Unremarkable. Adrenals: No adrenal mass. Kidneys: No hydronephrosis or nephrolithiasis. Bladder: Mildly distended and unremarkable. Reproductive Organs: Unremarkable. Bowel: Oral contrast material opacifies the stomach, distal small bowel and colon. Prior partial colectomy with suture material at the hepatic flexure. The bowel loops are nondilated. No ascites or pneumoperitoneum. The appendix is surgically absent. Lymph nodes: No suspicious lymphadenopathy. Vasculature: The abdominal aorta and IVC are normal. Bones/soft tissues: Small umbilical hernia containing fat and a nondilated small bowel loop. Mild lumbar spondylosis. No aggressive osseous lesions. CT/CT Chest, Abd, Pel w/Contrast IMPRESSION: CT chest: 1. No evidence of thoracic metastatic disease. 2. Tiny, sub 5 mm pulmonary nodules, likely noncalcified granulomas or scars. Continued attention on routine follow-up recommended. CT abdomen/pelvis: 1. No evidence of abdominopelvic metastatic disease. 2. Prior right hemicolectomy. Reading Location: [id number]
--- OUTSIDE RECORDS SUMMARY | 2024-11-01 06:40 | XMS RPT_ITS | CCD ---
Author Organization [facility] Care Team Providers Care Pattern Clerk Name Role Phone GAYATRIChris PENNINGTON Attending Unavailable Dyana, Ami Attending Unavailable Lenin, Demetrius Referring Unavailable Lenin, Demetrius Primary Care Unavailable Ruddy Coffman Consulting Unavailable Ruddy Coffman Attending Unavailable Ruddy Coffman Admitting Unavailable Lenin, Demetrius Primary Care Unavailable Ruddy Coffman Consulting Unavailable Ruddy Coffman Admitting Unavailable Lenin, Demetrius Primary Care Unavailable Gladys Siddiqui Attending Unavailable Ruddy Coffman Attending Unavailable Lenin, Demetrius Primary Care Unavailable Isckar, Jose Albertoour Referring Unavailable LiliamkarAshtyn leon Attending Unavailable Lenin, Demetrius Primary Care Unavailable Ruddy Coffman Referring Unavailable Ruddy Coffman Attending Unavailable Lenin, Demetrius Primary Care Unavailable Ruddy Coffman Referring Unavailable Ruddy Coffman Attending Unavailable Lenin, Demetrius Primary Care Unavailable Ruddy Coffman Referring Unavailable Ruddy Coffman Attending Unavailable Self Schedule, Now [facility] Attending Demetrius Hewitt Primary Care Unavailable Lenin, Demetrius Referring Unavailable Isckarus, Ashtyn Attending Unavailable Lenin, Demetrius Primary Care Unavailable Lenin, Demetrius Primary Care Unavailable Ruddy Coffman Attending Unavailable Lenin, Demetrius Referring Unavailable Dyana, Ami Attending Unavailable Lenin, Demetrius Primary Care Unavailable Lenin, Demetrius Referring Unavailable Lenin, Demetrius Primary Care Unavailable Ruddy Coffman Attending Unavailable Lenin, Demetrius Referring Unavailable Lenin, Demetrius Primary Care Unavailable Dyana, Ami Attending Unavailable Lenin, Demetrius Referring Unavailable Dyana, Ami Attending Unavailable Lenin, Demetrius Primary Care Unavailable Lenin, Demetrius Referring Unavailable Gladys Siddiqui Attending Unavailable Lenin, Demetrius Referring Unavailable Lenin, Demetrius Primary Care Unavailable Isckarus, Jose Albertoour Attending Unavailable Lenin, Demetrius Primary Care Unavailable Lenin, Demetrius Referring Unavailable Ruddy Coffman Attending Unavailable Ruddy Coffman Admitting Unavailable LeninDemetrius wu Primary Care Unavailable Isckarus, Ashtyn Attending Unavailable Isckarus, Jose Albertoour Referring Unavailable Lenin, Demetrius Primary Care Unavailable Lenin, Demetrius Primary Care Unavailable Lenin, Demetrius Referring Unavailable Gladys Siddiqui Attending Unavailable Lenin, Demetrius Primary Care Unavailable Meghna, Ruddy Referring Unavailable Meghna, Ruddy Attending Unavailable Lenin, Demetrius Primary Care Unavailable Meghna, Ruddy Referring Unavailable Wiliam, Ashtyn Attending Unavailable Ami Turpin Attending Unavailable Lenin, Demetrius Referring Unavailable Lenin, Demetrius Primary Care Unavailable Borkelly, Ruddy Referring Unavailable Meghna, Ruddy Consulting Unavailable Meghna, Ruddy Attending Unavailable Lenin, Demetrius Primary Care Unavailable Meghna, Ruddy Referring Unavailable Meghna, Ruddy Attending Unavailable Meghna, Ruddy Consulting Unavailable Lenin, Demetrius Primary Care Unavailable Problems Active Problems Problem Classification Problem Date Documented Da te Episodic/Chronic Cancer of colon (5 sources) Malignant neoplasm of ascending colon; Translations: [Malignant neoplasm of colon, unspecified] Onset: 06-07-2024 Chronic Deficiency and other anemia (1 source) Iron deficiency anemia secondary to blood loss (chronic); Translations: [Iron deficiency anemia secondary to blood loss (chronic)] Onset: 08-09-2024 Chronic Secondary malignancies (2 sources) Secondary and unspecified malignant neoplasm of lymph node, unspecified; Translations: [Secondary and unspecified malignant neoplasm of lymph node, unspecified] Onset: 08-09-2024 Chronic Past or Other Problems Problem Classification Problem Date Documented Date Episodic/Chronic Deficiency and other anemia (1 source) Iron deficiency anemia, unspecified; Translations: [Iron deficiency anemia, unspecified] Onset: 05-18-2024 Episodic Deficiency and other anemia (1 source) Anemia, unspecified; Translations: [Anemia, unspecified] Onset: 05-12-2024 Episodic E Codes: Adverse effects of medical drugs (1 source) Adverse effect of antineoplastic and immunosuppressive drugs, initial encounter; Translations: [Adverse effect of antineoplastic and immunosuppressive drugs, initial encounter] Onset: 05-18-2024 Episodic Fluid and electrolyte disorders (1 source) Hypokalemia; Translations: [Hypokalemia] Onset: 07-26-2024 Episodic Intestinal obstruction without hernia (2 sources) Intussusception; Translations: [Intussusception] Onset: 05-14-2024 Episodic Nausea and vomiting (1 source) Nausea with vomiting, unspecified; Translations: [Nausea with vomiting, unspecified] Onset: 05-18-2024 Episodic Other aftercare (1 source) Encounter for adjustment and management of vascular access device; Translations: [Encounter for adjustment and management of vascular access device] Onset: 06-04-2024 Episodic Residual codes; unclassified (1 source) Acquired absence of other specified parts of digestive tract; Translations: [Acquired absence of other specified parts of digestive tract] Onset: 05-13-2024 Episodic Results Test Name Value Interpretation Reference Range Facility CBC W/Diff, Automatedon 07-14 Anisocytosis Ql (Bld) 2+ Normal [facility] Comment on above: Performed By: #### L 500.4050, L100.0100, L501.5200 #### [facility] [address] [place], [address] PLT EST MOD DEC Normal ADEQ [facility] Comment on above: Performed By: #### L 500.4050, L100.0100, L501.5200 #### [facility] [address] [place], [address] SMEAR COMMENT SCANNED Normal [facility] Comment on above: Performed By: #### L 500.4050, L100.0100, L501.5200 #### [facility] [address] [place], [address] Comprehensive Metabolic Prof ilon 08-09-2024 Albumin [Mass/Vol] 3.7 g/dL Normal 3.5-5.0 [facility] Comment on above: Performed By: #### L 500.4050, L100.0100, L501.5200 #### [facility] [address] [place], [address] Albumin/Globulin [Mass ratio] 1.3 {ratio} Normal 0.9-2.4 [facility] Comment on above: Performed By: #### L 500.4050, L100.0100, L501.5200 #### [facility] [address] [place], [address] ALK PHOS 118 U/L Normal 40-129 [facility] Comment on above: Performed By: #### L 500.4050, L100.0100, L501.5200 #### [facility] [address] [place], [address] ALT [Catalytic activity/Vol] 15 U/L Normal <=46 [facility] Comment on above: Performed By: #### L 500.4050, L100.0100, L501.5200 #### [facility] [address] [place], [address] AST [Catalytic activity/Vol] 29 U/L Normal <=37 [facility] Comment on above: Performed By: #### L 500.4050, L100.0100, L501.5200 #### [facility] [address] [place], [address] Bilirubin [Mass/Vol] 0.59 mg/dL Normal 0.00-1.30 [facility] Comment on above: Performed By: #### L 500.4050, L100.0100, L501.5200 #### [facility] [address] [place], [address] BUN/CRE 7.5 RATIO Low 10-20 [facility] Comment on above: Performed By: #### L 500.4050, L100.0100, L501.5200 #### [facility] [address] [place], [address] Calcium [Mass/Vol] 9.0 mg/dL Normal 7.6-11.0 [facility] Comment on above: Performed By: #### L 500.4050, L100.0100, L501.5200 #### [facility] [address] [place], [address] Chloride [Moles/Vol] 106 mmol/L Normal 98-108 [facility] Comment on above: Performed By: #### L 500.4050, L100.0100, L501.5200 #### [facility] [address] [place], [address] CO2 [Moles/Vol] 21.5 mmol/L Normal 21.0-32.0 [facility] Comment on above: Performed By: #### L 500.4050, L100.0100, L501.5200 #### [facility] [address] [place], [address] Creatinine [Mass/Vol] 0.69 mg/dL Low 0.70-1.20 [facility] Comment on above: Performed By: #### L 500.4050, L100.0100, L501.5200 #### [facility] [address] [place], [address] ECRCL 141.35 ml/min Normal 50-250 [facility] Comment on above: Performed By: #### L 500.4050, L100.0100, L501.5200 #### [facility] [address] [place], [address] GAP 13 Normal 5-15 [facility] Comment on above: Performed By: #### L 500.4050, L100.0100, L501.5200 #### [facility] [address] [place], [address] GFR/1.73 sq M.predicted among non-blacks MDRD (S/P/Bld) [Vol rate/Area] 110 mL/min/{1.73_m2} Normal >60 [facility] Comment on above: Result Comment: mL/m in/1.73m2 CKD-EPI Creatinine Equation (2020) Performed By: #### L 500.4050, L100.0100, L501.5200 #### [facility] [address] [place], [address] Globulin (S) [Mass/Vol] 2.8 g/dL Normal 2.2-4.2 [facility] Comment on above: Performed By: #### L 500.4050, L100.0100, L501.5200 #### [facility] [address] [place], [address] Glucose [Mass/Vol] 156 mg/dL High 70-99 [facility] Comment on above: Performed By: #### L 500.4050, L100.0100, L501.5200 #### [facility] [address] [place], [address] Potassium [Moles/Vol] 3.1 mmol/L Low 3.3-5.1 [facility] Comment on above: Performed By: #### L 500.4050, L100.0100, L501.5200 #### [facility] [address] [place], [address] Sodium [Moles/Vol] 140 mmol/L Normal 133-145 [facility] Comment on above: Performed By: #### L 500.4050, L100.0100, L501.5200 #### [facility] [address] [place], [address] T PROT 6.4 g/dL Normal 5.9-8.4 [facility] Comment on above: Performed By: #### L 500.4050, L100.0100, L501.5200 #### [facility] [address] [place], [address] Urea nitrogen [Mass/Vol] 5 mg/dL Normal 4-19 [facility] Comment on above: Performed By: #### L 500.4050, L100.0100, L501.5200 #### [facility] [address] [place], [address] Magnesiumon 04-28-2025 Magnesium [Mass/Vol] 2.1 mg/dL Normal 1.5-2.2 [facility] Comment on above: Performed By: #### L 500.4050, L100.0100, L501.5200 #### [facility] [address] [place], [address] Oncology Visit Reporton 07-14 Oncology Visit Report [facility] [place] [facility] [address] [place] [address] OFFICE VISIT Date of Service: 08/09/24 0848 MR#: [id number] Acct: [id number] Name: ROSALVA WILLETT Rep #: [id number] : 1970 From: Ashtyn Swain MD Age/Sex: 54/M Location: [facility] [place] Status: Signed HPI Subjective Date of Service 08/09/24 Chief Complaint Colon cancer History of Present Illness 54-year-old male presented in April 2024 with a few days long increasing abdominal pain. April 27, 2024 CT abdomen and pelvis: IMPRESSION: Colocolic intussusception. No obstruction. April 28, 2024 laparoscopic right hemicolectomy with ileocolic anastomosis. April 28, 2024 MICROSCOPIC DIAGNOSIS A. 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 See cancer summary in the comment section. B. Omentum: A piece of adipose tissue with congestion, hemorrhage, acute inflammation and fibrinous exudation. Negative for malignancy. C. Right colon staple line: Small intestine donut: No pathologic diagnosis. Colonic donut with serosal acute inflammation and fibrinous exudation. SJ.mr 05/03/2024 COMMENT A. COLON CANCER SUMMARY: Specimen - Right colon Procedure - Right hemicolectomy Tumor site - Ascending colon Tumor size - 6 x 4.5 x 3.5cm Macroscopic tumor perforation - Not identified Histologic type - Adenocarcinoma with extensive mucinous differentiation Histologic grade - Grade 2, moderately differentiated Microscopic tumor extension - Tumor invades through muscularis propria into pericolonic adipose tissue Margins: Margins are uninvolved by invasive carcinoma., high grade dysplasia, intramucosal carcinoma and adenoma. The tumor is 8cm away from the closest distal resection margin. Treatment effect - No known presurgical therapy Lymphvascular invasion - Not identified Perineural invasion - Not identified Tumor deposits - None identified Type of polyp in which invasive carcinoma arose - None identified Lymph nodes: Number of lymph nodes examined - 14 Number of lymph nodes involved - 1 The metastatic focus of tumor measures 0.4cm in greatest dimension. Extranodal extension is not identified Additional pathologic findings ??? Appendix with complete luminal obliteration. Colonic resection margin with serosal acute inflammation. Ancillary studies: IHC for microsatellite instability study by IHC ([id number]) will be reported separately. PATHOLOGIC STAGE: pT3p N1 pMx Result of Microsatellite Instability Study: Negative (no loss of mismatch protein; no microsatellite instability detected) May 21, [address]: IMPRESSION: No suspicious pulmonary nodules. No focal consolidation. Treatment summary and response: * April 28 2024 laparoscopic right hemicolectomy. * May 31???July modified FOLFOX 6 (6 cycles at 2 weeks intervals) PFSH Medical History Drug induced neutropenia Encounter for chemotherapy management Hypokalemia Iron deficiency anemia Anemia Regional lymph node metastasis present Colon cancer Smoker Intussusception Abdominal pain Surgical History Hx of surgical procedure H/O hemicolectomy Family History Father Colon cancer, Onset Age: 70 Mother Diabetes Social History Smoking Status: Former smoker (Patient quit smoking April 25 2024.) alcohol intake: never substance use type: does not use ROS Constitutional Constitutional: Denies fatigue, fever(s) or weight loss Eyes Eyes: Reports systems reviewed and no addt'l complaints, except as documented ENT HEENT: Reports systems reviewed and no addt'l complaints, except as documented; Denies mouth lesions Cardiovascular Cardiovascular: Reports systems reviewed and no addt'l complaints, except as documented; Denies chest pain with activity or edema Respiratory/Chest Respiratory/Chest: Reports systems reviewed and no addt'l complaints, except as documented; Denies cough or dyspnea Gastrointestinal Gastrointestinal: Reports systems reviewed and no addt'l complaints, except as documented; Denies abdominal pain, hematochezia, melena or nausea Genitourinary Genitourinary: Reports systems reviewed and no addt'l complaints, except as documented Musculoskeletal Musculoskeletal: Reports systems reviewed and no addt'l complaints, except as documented; Denies back pain Integumentary Integumentary: Reports systems reviewed and no addt'l complaints, except as documented; Denies new lesions Neurologic Neurologic: Reports systems reviewed and no addt'l complaints, except as documented; Denies focal weakness or paresthesias Ps (more content not included)... Normal [facility] CBC W/Diff, Automatedon - SMEAR COMMENT SCANNED Normal [facility] Comment on above: Result Comment: 2+ A NISOCYTOSIS THROMBOCYTOPENIA NOTED Performed By: #### L 500.4050, L501.5200, L100.0100 ####[facility] [address] [place], [address] Comprehensive Metabolic Prof ilon 07-26-2024 Albumin [Mass/Vol] 3.8 g/dL Normal 3.5-5.0 [facility] Comment on above: Performed By: #### L 500.4050, L501.5200, L100.0100 ####[facility] [address] [place], [address] Albumin/Globulin [Mass ratio] 1.5 {ratio} Normal 0.9-2.4 [facility] Comment on above: Performed By: #### L 500.4050, L501.5200, L100.0100 ####[facility] [address] [place], [address] ALK PHOS 116 U/L Normal 40-129 [facility] Comment on above: Performed By: #### L 500.4050, L501.5200, L100.0100 ####[facility] [address] [place], [address] ALT [Catalytic activity/Vol] 15 U/L Normal <=46 [facility] Comment on above: Performed By: #### L 500.4050, L501.5200, L100.0100 ####[facility] [address] [place], [address] AST [Catalytic activity/Vol] 29 U/L Normal <=37 [facility] Comment on above: Performed By: #### L 500.4050, L501.5200, L100.0100 ####[facility] [address] [place], [address] Bilirubin [Mass/Vol] 0.61 mg/dL Normal 0.00-1.30 [facility] Comment on above: Performed By: #### L 500.4050, L501.5200, L100.0100 ####[facility] [address] [place], [address] BUN/CRE 5.6 RATIO Low 10-20 [facility] Comment on above: Performed By: #### L 500.4050, L501.5200, L100.0100 ####[facility] [address] [place], [address] Calcium [Mass/Vol] 8.9 mg/dL Normal 7.6-11.0 [facility] Comment on above: Performed By: #### L 500.4050, L501.5200, L100.0100 ####[facility] [address] [place], [address] Chloride [Moles/Vol] 104 mmol/L Normal 98-108 [facility] Comment on above: Performed By: #### L 500.4050, L501.5200, L100.0100 ####[facility] [address] [place], [address] CO2 [Moles/Vol] 22.9 mmol/L Normal 21.0-32.0 [facility] Comment on above: Performed By: #### L 500.4050, L501.5200, L100.0100 ####[facility] [address] [place], [address] Creatinine [Mass/Vol] 0.71 mg/dL Normal 0.70-1.20 [facility] Comment on above: Performed By: #### L 500.4050, L501.5200, L100.0100 ####[facility] [address] [place], [address] ECRCL 137.92 ml/min Normal 50-250 [facility] Comment on above: Performed By: #### L 500.4050, L501.5200, L100.0100 ####[facility] [address] [place], [address] GAP 11 Normal 5-15 [facility] Comment on above: Performed By: #### L 500.4050, L501.5200, L100.0100 ####[facility] [address] [place], [address] GFR/1.73 sq M.predicted among non-blacks MDRD (S/P/Bld) [Vol rate/Area] 109 mL/min/{1.73_m2} Normal >60 [facility] Comment on above: Result Comment: mL/m in/1.73m2 CKD-EPI Creatinine Equation (2020) Performed By: #### L 500.4050, L501.5200, L100.0100 ####[facility] [address] [place], [address] Globulin (S) [Mass/Vol] 2.5 g/dL Normal 2.2-4.2 [facility] Comment on above: Performed By: #### L 500.4050, L501.5200, L100.0100 ####[facility] [address] [place], [address] Glucose [Mass/Vol] 157 mg/dL High 70-99 [facility] Comment on above: Performed By: #### L 500.4050, L501.5200, L100.0100 ####[facility] [address] [place], [address] Potassium [Moles/Vol] 2.9 mmol/L Low 3.3-5.1 [facility] Comment on above: Performed By: #### L 500.4050, L501.5200, L100.0100 ####[facility] [address] [place], [address] Sodium [Moles/Vol] 138 mmol/L Normal 133-145 [facility] Comment on above: Performed By: #### L 500.4050, L501.5200, L100.0100 ####[facility] [address] [place], [address] T PROT 6.3 g/dL Normal 5.9-8.4 [facility] Comment on above: Performed By: #### L 500.4050, L501.5200, L100.0100 ####[facility] [address] [place], [address] Urea nitrogen [Mass/Vol] 4 mg/dL Normal 4-19 [facility] Comment on above: Performed By: #### L 500.4050, L501.5200, L100.0100 ####[facility] [address], [address] Magnesiumon 07-26-2024 Magnesium [Mass/Vol] 2.0 mg/dL Normal 1.5-2.2 [facility] Comment on above: Performed By: #### L 500.4050, L501.5200, L100.0100 ####[facility] [address] [place], [address] Oncology Visit Reporton 07-13 Oncology Visit Report [facility] [address] 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 Status: Signed HPI Subjective Date of Service 07/26/24 Chief Complaint Colon cancer History of Present Illness 54-year-old male presented in April 2024 with a few days long increasing abdominal pain. April 27, 2024 CT abdomen and pelvis: IMPRESSION: Colocolic intussusception. No obstruction. April 28, 2024 laparoscopic right hemicolectomy with ileocolic anastomosis. April 28, 2024 MICROSCOPIC DIAGNOSIS A. 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 See cancer summary in the comment section. B. Omentum: A piece of adipose tissue with congestion, hemorrhage, acute inflammation and fibrinous exudation. Negative for malignancy. C. Right colon staple line: Small intestine donut: No pathologic diagnosis. Colonic donut with serosal acute inflammation and fibrinous exudation. SJ.mr 05/03/2024 COMMENT A. COLON CANCER SUMMARY: Specimen - Right colon Procedure - Right hemicolectomy Tumor site - Ascending colon Tumor size - 6 x 4.5 x 3.5cm Macroscopic tumor perforation - Not identified Histologic type - Adenocarcinoma with extensive mucinous differentiation Histologic grade - Grade 2, moderately differentiated Microscopic tumor extension - Tumor invades through muscularis propria into pericolonic adipose tissue Margins: Margins are uninvolved by invasive carcinoma., high grade dysplasia, intramucosal carcinoma and adenoma. The tumor is 8cm away from the closest distal resection margin. Treatment effect - No known presurgical therapy Lymphvascular invasion - Not identified Perineural invasion - Not identified Tumor deposits - None identified Type of polyp in which invasive carcinoma arose - None identified Lymph nodes: Number of lymph nodes examined - 14 Number of lymph nodes involved - 1 The metastatic focus of tumor measures 0.4cm in greatest dimension. Extranodal extension is not identified Additional pathologic findings ??? Appendix with complete luminal obliteration. Colonic resection margin with serosal acute inflammation. Ancillary studies: IHC for microsatellite instability study by IHC ([id number]) will be reported separately. PATHOLOGIC STAGE: pT3p N1 pMx Result of Microsatellite Instability Study: Negative (no loss of mismatch protein; no microsatellite instability detected) May 21, [address]: IMPRESSION: No suspicious pulmonary nodules. No focal consolidation. Treatment summary and response: * April 28 2024 laparoscopic right hemicolectomy. * May 31, 2024 modified FOLFOX 6 Interval History The patient is presenting to clinic accompanied by adult daughter for an evaluation anticipating he will begin c5 adjuvant FOLFOX. C/o increased frequency of BMs on days 4-5, no diarrhea. LBM earlier this am- describes as soft, formed. + Heart burn and mild GI upset on day 4 last cycle. Limited PO intake. No N/V. Specifically denies fever/chills, sweats, headache, dizziness, mouth sores, dysphagia, CP, palpitations, cough, SOB, nausea/vomiting, abd pain, swelling of his extremities. No numbness/tingling of toes, only occurring in fingertips with cold exposure through day 8 thus far. PFSH Medical History Drug induced neutropenia Encounter for chemotherapy management Hypokalemia Iron deficiency anemia [facility] lymph node metastasis present Colon cancer Smoker Intussusception Abdominal pain Surgical History Hx of surgical procedure H/O hemicolectomy Family History Father Colon cancer, Onset Age: 70 Mother Diabetes Social History Smoking Status: Former smoker (Patient quit smoking April 25 2024.) alcohol intake: never substance use type: does not use ROS ROS Narrative Negative except as documented in the interval HPI Intake Vital Signs 05/31/24 08:21 07/26/24 09:00 Height 5 ft 9 in 5 ft 9 in Weight: 220 lb BMI 32.5 BP 135/79 H Blood Pressure Location Rt brachial Position Sitting Respiration 18 Pulse 61 Pulse Source Monitor Temp 97.8 F Temperature Source Temporal Artery Pulse Oximetry (%) 99 Intake Is patient in pain?: No Allergies No Known Allergies Allergy (Verified 07/26/24 09:04) Medications ???Medication ???Instructions ???Recorded ???Confirmed ???Type lidocaine-prilocaine (more content not included)... Normal [facility] Carcinoembryonic Antigenon 0 07-13-2024 CEA 3.6 ng/mL Normal 0.0-4.7 [facility] Comment on above: Result Comment: Nons mokers <3.9 Smokers <5.6 [facility] Electrochemiluminescence Immunoassay (ECLIA) Values obtained with different assay methods or kits cannot be used interchangeably. Results cannot be interpreted as absolute evidence of the presence or absence of malignant disease. Performed at: [facility] [id number] Bunch Breaker: Alberto Burroughs PhD, Phone: [phone] Performed By: #### L 3100.2300 ####[facility] [address] [place], [address] CBC W/Diff, Automatedon - Anisocytosis Ql (Bld) 1+ Normal [facility] Comment on above: Performed By: #### L 500.4050, L100.0100, L501.5200 ####[facility] [address] [place], [address] Comprehensive Metabolic Prof ilon 07-12-2024 Albumin [Mass/Vol] 3.8 g/dL Normal 3.5-5.0 [facility] Comment on above: Performed By: #### L 500.4050, L100.0100, L501.5200 ####[facility] [address] [place], [address] Albumin/Globulin [Mass ratio] 1.6 {ratio} Normal 0.9-2.4 [facility] Comment on above: Performed By: #### L 500.4050, L100.0100, L501.5200 ####[facility] [address] [place], [address] ALK PHOS 119 U/L Normal 40-129 [facility] Comment on above: Performed By: #### L 500.4050, L100.0100, L501.5200 ####[facility] [address] [place], [address] ALT [Catalytic activity/Vol] 16 U/L Normal <=46 [facility] Comment on above: Performed By: #### L 500.4050, L100.0100, L501.5200 ####[facility] [address] [place], [address] AST [Catalytic activity/Vol] 26 U/L Normal <=37 [facility] Comment on above: Performed By: #### L 500.4050, L100.0100, L501.5200 ####[facility] [address] [place], [address] Bilirubin [Mass/Vol] 0.25 mg/dL Normal 0.00-1.30 [facility] Comment on above: Performed By: #### L 500.4050, L100.0100, L501.5200 ####[facility] [address] [place], [address] BUN/CRE 7.0 RATIO Low 10-20 [facility] Comment on above: Performed By: #### L 500.4050, L100.0100, L501.5200 ####[facility] [address] [place], [address] Calcium [Mass/Vol] 9.2 mg/dL Normal 7.6-11.0 [facility] Comment on above: Performed By: #### L 500.4050, L100.0100, L501.5200 ####[facility] [address] [place], [address] Chloride [Moles/Vol] 106 mmol/L Normal 98-108 [facility] Comment on above: Performed By: #### L 500.4050, L100.0100, L501.5200 ####[facility] [address] [place], [address] CO2 [Moles/Vol] 21.0 mmol/L Normal 21.0-32.0 [facility] Comment on above: Performed By: #### L 500.4050, L100.0100, L501.5200 ####[facility] [address] [place], [address] Creatinine [Mass/Vol] 0.69 mg/dL Low 0.70-1.20 [facility] Comment on above: Performed By: #### L 500.4050, L100.0100, L501.5200 ####[facility] [address] [place], [address] ECRCL 141.92 ml/min Normal 50-250 [facility] Comment on above: Performed By: #### L 500.4050, L100.0100, L501.5200 ####[facility] [address] [place], [address] GAP 12 Normal 5-15 [facility] Comment on above: Performed By: #### L 500.4050, L100.0100, L501.5200 ####[facility] [address] [place], [address] GFR/1.73 sq M.predicted among non-blacks MDRD (S/P/Bld) [Vol rate/Area] 110 mL/min/{1.73_m2} Normal >60 [facility] Comment on above: Result Comment: mL/m in/1.73m2 CKD-EPI Creatinine Equation (2020) Performed By: #### L 500.4050, L100.0100, L501.5200 ####[facility] [address] [place], [address] Globulin (S) [Mass/Vol] 2.3 g/dL Normal 2.2-4.2 [facility] Comment on above: Performed By: #### L 500.4050, L100.0100, L501.5200 ####[facility] [address] [place], [address] Glucose [Mass/Vol] 185 mg/dL High 70-99 [facility] Comment on above: Performed By: #### L 500.4050, L100.0100, L501.5200 ####[facility] [address] [place], [address] Potassium [Moles/Vol] 3.3 mmol/L Normal 3.3-5.1 [facility] Comment on above: Result Comment: Hemo lysis present, Results??could be affected. ?? Performed By: #### L 500.4050, L100.0100, L501.5200 ####[facility] [address] [place], [address] Sodium [Moles/Vol] 139 mmol/L Normal 133-145 [facility] Comment on above: Performed By: #### L 500.4050, L100.0100, L501.5200 ####[facility] [address] [place], [address] T PROT 6.1 g/dL Normal 5.9-8.4 [facility] Comment on above: Performed By: #### L 500.4050, L100.0100, L501.5200 ####[facility] [address] [place], [address] Urea nitrogen [Mass/Vol] 5 mg/dL Normal 4-19 [facility] Comment on above: Performed By: #### L 500.4050, L100.0100, L501.5200 ####[facility] [address] 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 Status: Signed HPI Subjective Date of Service 07/12/24 Chief Complaint Colon cancer History of Present Illness 54-year-old male presented in April 2024 with a few days long increasing abdominal pain. April 27, 2024 CT abdomen and pelvis: IMPRESSION: Colocolic intussusception. No obstruction. April 28, 2024 laparoscopic right hemicolectomy with ileocolic anastomosis. April 28, 2024 MICROSCOPIC DIAGNOSIS A. 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 See cancer summary in the comment section. B. Omentum: A piece of adipose tissue with congestion, hemorrhage, acute inflammation and fibrinous exudation. Negative for malignancy. C. Right colon staple line: Small intestine donut: No pathologic diagnosis. Colonic donut with serosal acute inflammation and fibrinous exudation. SJ.mr 05/03/2024 COMMENT A. COLON CANCER SUMMARY: Specimen - Right colon Procedure - Right hemicolectomy Tumor site - Ascending colon Tumor size - 6 x 4.5 x 3.5cm Macroscopic tumor perforation - Not identified Histologic type - Adenocarcinoma with extensive mucinous differentiation Histologic grade - Grade 2, moderately differentiated Microscopic tumor extension - Tumor invades through muscularis propria into pericolonic adipose tissue Margins: Margins are uninvolved by invasive carcinoma., high grade dysplasia, intramucosal carcinoma and adenoma. The tumor is 8cm away from the closest distal resection margin. Treatment effect - No known presurgical therapy Lymphvascular invasion - Not identified Perineural invasion - Not identified Tumor deposits - None identified Type of polyp in which invasive carcinoma arose - None identified Lymph nodes: Number of lymph nodes examined - 14 Number of lymph nodes involved - 1 The metastatic focus of tumor measures 0.4cm in greatest dimension. Extranodal extension is not identified Additional pathologic findings ??? Appendix with complete luminal obliteration. Colonic resection margin with serosal acute inflammation. Ancillary studies: IHC for microsatellite instability study by IHC ([id number]) will be reported separately. PATHOLOGIC STAGE: pT3p N1 pMx Result of Microsatellite Instability Study: Negative (no loss of mismatch protein; no microsatellite instability detected) May 21, [address]: IMPRESSION: No suspicious pulmonary nodules. No focal consolidation. Treatment summary and response: * April 28 2024 laparoscopic right hemicolectomy. * May 31, 2024 modified FOLFOX 6 Interval History The patient is presenting to clinic accompanied by adult daughter for an evaluation anticipating he will begin c4 adjuvant FOLFOX. He denies any concerns r/t today's visit. No diarrhea. LBM 07/12/24. + Heart burn on days 2-5, relieved by eating typically. Specifically denies fever/chills, sweats, headache, dizziness, mouth sores, dysphagia, CP, palpitations, cough, SOB, nausea/vomiting, abd pain, swelling of his extremities. No numbness/tingling of toes, only occurring in fingertips with cold exposure through day 8 thus far. [facility] Medical History Encounter for chemotherapy management Hypokalemia Iron deficiency anemia [facility] lymph node metastasis present Colon cancer Smoker Intussusception Abdominal pain Surgical History Hx of surgical procedure H/O hemicolectomy Family History Father Colon cancer, Onset Age: 70 Mother Diabetes Social History Smoking Status: Former smoker (Patient quit smoking April 25 2024.) alcohol intake: never substance use type: does not use ROS ROS Narrative Negative except as documented in the interval HPI Intake Vital Signs 05/31/24 08:21 06/28/24 09:13 07/12/24 08:15 07/12/24 08:26 Height 5 ft 9 in 5 ft 9 in 5 ft 9 in 5 ft 9 in Weight: 218 lb 1 oz BMI 32.2 BP 131/77 H Blood Pressure Location Lt brachial Position Sitting Respiration 16 Pulse 67 Pulse Source Monitor Temp 97.4 F L Temperature Source Temporal Artery Pulse Oximetry (%) 99 Oxygen Delivery Method room air Intake Allergies No Known Allergies Allergy (Verified 07/12/24 08:26) Medications ???Medication ???Instructions ???Recorded ???Confirmed ???Type lidocaine-prilocaine 2.5 %-2.5 % 1 applic to (more content not included)... Normal [facility] Surgery Visit Reporton 06-30 Surgery Visit Report [facility] [address] [place] [address] OFFICE VISIT Date of Service: 06/30/24 MR#: [id number] Acct: [id number] Name: ROSALVA WILLETT Rep #: [id number] : 1970 Provider: USHA madrid Age/Sex: 54/M Location: [facility] Status: Signed Intake Vital Signs 06/28/24 09:13 Height 5 ft 9 in Weight: 217 lb 6 oz BMI 32.1 BP 130/81 H Blood Pressure Location Lt brachial Position Sitting Respiration 16 Pulse 57 L Pulse Source Monitor Temp 97.3 F L Pulse Oximetry (%) 100 Oxygen Delivery Method room air Intake Visit Reasons: STITCH AT PORT SITE Chief Complaint: stitch at port site Is patient in pain?: No Allergies No Known Allergies Allergy (Verified 06/30/24 12:35) Medications ???Medication ???Instructions ???Recorded ???Confirmed ???Type lidocaine-prilocaine 2.5 %-2.5 % 1 applic topical ONCE PRN port 07/0606/30/24 Rx topical cream acces 30 days #30 grams ondansetron 8 mg disintegrating 8 mg PO Q8H PRN nausea and 5 06/30/24 Rx tablet vomiting #30 tabs prochlorperazine maleate 10 mg 10 mg PO Q6H PRN nausea and 06/30/24 Rx tablet vomiting #30 tabs Subjective Details: Patient is a 54 y/o M s/p u/s guided right port placement by Dr. Coffman on 05/18/24. Patient returns as oncology is noting the incision is spitting a suture. Patient denies any discomfort or pain. Objective Details: Right chest- incision c/d/i. Medial aspect of the incision has a suture knot protruding through. Suture was completely removed without any concerns. Coding Level of Care Code Global Post Op Diagnoses Spitting suture T81.31XA PFSH Medical History Encounter for chemotherapy management Hypokalemia Iron deficiency anemia [facility] lymph node metastasis present Colon cancer Smoker Intussusception Abdominal pain Surgical History Hx of surgical procedure H/O hemicolectomy Family History Father Colon cancer, Onset Age: 70 Mother Diabetes Social History Smoking Status: Former smoker (Patient quit smoking April 25 2024.) alcohol intake: never substance use type: does not use Assessment and Plan (No Qualifiers) Assessment and Plan (1) Spitting suture: Status: Acute Plan: No signs of infection needed Follow-up as needed 07/01/24 1252 Date Gladys Wan Signature: Date (if applicable) CC: Normal [facility] CBC W/Diff, Automatedon 03- Anisocytosis Ql (Bld) 1+ Normal [facility] Comment on above: Performed By: #### L 100.0100, L500.2500, L501.2300, L501.5200 #### [facility] [place], [address] Comprehensive Metabolic Prof ilon 06-28-2024 BUN/CRE 5.4 RATIO Low 10-20 [facility] Comment on above: Performed By: #### L 100.0100, L500.2500, L501.2300, L501.5200 #### [facility] [address] [place], [address] Urea nitrogen [Mass/Vol] 4 mg/dL Normal 4-19 [facility] Comment on above: Performed By: #### L 100.0100, L500.2500, L501.2300, L501.5200 #### [facility] [address] [place], [address] Ferritinon 06-28-2024 Ferritin [Mass/Vol] 310 ng/mL Normal 37-417 [facility] Comment on above: Performed By: #### L 503.6030, L503.6550 ####[facility] [address] [place], [address] Iron+Iron Binding Capacityon 06-28-2024 Iron [Mass/Vol] 85 ug/dL Normal 65-175 [facility] Comment on above: Performed By: #### L 503.6030, L503.6550 ####[facility] [address] [place], [address] IRON SATURATION 24.0 Normal 9-55 [facility] Comment on above: Performed By: #### L 503.6030, L503.6550 ####[facility] [address] [place], [address] TIBC 358 ug/dL Normal 250-450 [facility] Comment on above: Performed By: #### L 503.6030, L503.6550 ####[facility] [address] [place], [address] UIBC 273 ug/dL Normal 228-428 [facility] Comment on above: Performed By: #### L 503.6030, L503.6550 ####[facility] [address] [place], [address] Magnesiumon 06-28-2024 Magnesium [Mass/Vol] 2.2 mg/dL Normal 1.5-2.2 [facility] Comment on above: Performed By: #### L 100.0100, L500.2500, L501.2300, L501.5200 #### [facility] [address] [place], [address] Oncology Visit Reporton 06-12 Oncology Visit Report [facility] [address] [place] [address] OFFICE VISIT Date of Service: 06/28/24 0904 MR#: [id number] Acct: [id number] Name: ROSALVA WILLETT STAR Rep #: [id number] : 1970 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 April 27, 2024 CT abdomen and pelvis: IMPRESSION: Colocolic intussusception. No obstruction. April 28, 2024 laparoscopic right hemicolectomy with ileocolic anastomosis. April 28, 2024 MICROSCOPIC DIAGNOSIS A. 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 See cancer summary in the comment section. B. Omentum: A piece of adipose tissue with congestion, hemorrhage, acute inflammation and fibrinous exudation. Negative for malignancy. C. Right colon staple line: Small intestine donut: No pathologic diagnosis. Colonic donut with serosal acute inflammation and fibrinous exudation. SJ.mr 05/03/2024 COMMENT A. COLON CANCER SUMMARY: Specimen - Right colon Procedure - Right hemicolectomy Tumor site - Ascending colon Tumor size - 6 x 4.5 x 3.5cm Macroscopic tumor perforation - Not identified Histologic type - Adenocarcinoma with extensive mucinous differentiation Histologic grade - Grade 2, moderately differentiated Microscopic tumor extension - Tumor invades through muscularis propria into pericolonic adipose tissue Margins: Margins are uninvolved by invasive carcinoma., high grade dysplasia, intramucosal carcinoma and adenoma. The tumor is 8cm away from the closest distal resection margin. Treatment effect - No known presurgical therapy Lymphvascular invasion - Not identified Perineural invasion - Not identified Tumor deposits - None identified Type of polyp in which invasive carcinoma arose - None identified Lymph nodes: Number of lymph nodes examined - 14 Number of lymph nodes involved - 1 The metastatic focus of tumor measures 0.4cm in greatest dimension. Extranodal extension is not identified Additional pathologic findings ??? Appendix with complete luminal obliteration. Colonic resection margin with serosal acute inflammation. Ancillary studies: IHC for microsatellite instability study by IHC ([id number]) will be reported separately. PATHOLOGIC STAGE: pT3p N1 pMx Result of Microsatellite Instability Study: Negative (no loss of mismatch protein; no microsatellite instability detected) May 21, [address]: IMPRESSION: No suspicious pulmonary nodules. No focal consolidation. Treatment summary and response: * April 28 2024 laparoscopic right hemicolectomy. * May 31, 2024 modified FOLFOX 6 Interval History The patient is presenting to clinic accompanied by adult daughter for an evaluation anticipating he will begin c3 adjuvant FOLFOX. Nausea rare, typically the evening of d3. Only required one dose of ondansetron last cycle. No emesis. Denies diarrhea, describes soft stools on days 3-6, max 3 BMs per day. LBM 06/28/24. Specifically denies fever/chills, sweats, headache, dizziness, mouth sores, dysphagia, CP, palpitations, cough, SOB, abd pain, swelling of his extremities. No numbness/tingling of toes, only occurring in fingertips with cold exposure through day 5 thus far. [facility] Medical History Encounter for chemotherapy management Hypokalemia Iron deficiency anemia [facility] lymph node metastasis present Colon cancer Smoker Intussusception Abdominal pain Surgical History Hx of surgical procedure H/O hemicolectomy Family History Father Colon cancer, Onset Age: 70 Mother Diabetes Social History Smoking Status: Former smoker (Patient quit smoking April 25 2024.) alcohol intake: never substance use type: does not use ROS ROS Narrative Negative except as documented in the interval HPI Intake Vital Signs 05/31/24 08:21 06/28/24 09:05 06/28/24 09:13 Height 5 ft 9 in 5 ft 9 in 5 ft 9 in Weight: 217 lb 6 oz BMI 32.1 BP 130/81 H Blood Pressure Location Lt brachial Position Sitting Respiration 16 Pulse 57 L Pulse Source Monitor Temp 97.3 F L Temperature Source Temporal Artery Pulse Oximetry (%) 100 Oxygen Delivery Method room air Intake Is patient in pain?: No Allergies No Known Allergies Allergy (Verified 06/28/24 09:13) Medications ???Medication ???Instructions ???Recorded ???Confirmed ???Typ (more content not included)... Normal [facility] Carcinoembryonic Antigenon 0 06-15-2024 CEA 5.1 ng/mL High 0.0-4.7 [facility] Comment on above: Result Comment: Nons mokers <3.9 Smokers <5.6 [facility] Electrochemiluminescence Immunoassay (ECLIA) Values obtained with different assay methods or kits cannot be used interchangeably. Results cannot be interpreted as absolute evidence of the presence or absence of malignant disease. Performed at: [address] [id number] Bunch Breaker: Alberto Burroughs PhD, Phone: [phone] Performed By: #### L 7375.9068 ####[facility] [address] [place], [address] CBC W/Diff, Automatedon 03- Absolute Lymph 1.21 X10 3/uL Normal 0.83-4.51 [facility] Comment on above: Performed By: #### L 100.0100, L501.5200, L500.4050 ####[facility] [address] [facility] [place], [address] Absolute Neut 2.5 X10 3/uL Normal 2.0-7.7 [facility] Comment on above: Performed By: #### L 100.0100, L501.5200, L500.4050 ####[facility] [address] [place], [address] Basophils/100 WBC (Bld) 1.2 % High 0-1 [facility] Comment on above: Performed By: #### L 100.0100, L501.5200, L500.4050 ####[facility] [address], [address] Eosinophils/100 WBC (Bld) 2.8 % Normal 0-5 [facility] Comment on above: Performed By: #### L 100.0100, L501.5200, L500.4050 ####[facility] [address] [place], [address] Erythrocyte distribution width (RBC) [Ratio] 17.7 % High 11.6-14.6 [facility] Comment on above: Performed By: #### L 100.0100, L501.5200, L500.4050 ####[facility] [address] [place], [address] Hematocrit (Bld) [Volume fraction] 35.0 % Low 40-54 [facility] Comment on above: Performed By: #### L 100.0100, L501.5200, L500.4050 ####[facility] [address] [place], [address] Hemoglobin (Bld) [Mass/Vol] 11.4 g/dL Low 13.0-16.5 [facility] Comment on above: Performed By: #### L 100.0100, L501.5200, L500.4050 ####[facility] [address] [place], [address] IG% 0.200 Normal 0.0-0.9 [facility] Comment on above: Result Comment: IG% - Immature Granulocytes (promyelocytes, myelocytes and metamyelocytes) > 1% indicates that a LEFT SHIFT is Present. Performed By: #### L 100.0100, L501.5200, L500.4050 ####[facility] [address] [place], [address] Lymphocytes/100 WBC (Bld) 28.5 % Normal 19-41 [facility] Comment on above: Performed By: #### L 100.0100, L501.5200, L500.4050 ####[facility] [address] [place], [address] MCH (RBC) [Entitic mass] 27.4 pg Normal 27.0-32.0 [facility] Comment on above: Performed By: #### L 100.0100, L501.5200, L500.4050 ####[facility] [address] [place], [address] MCHC (RBC) [Mass/Vol] 32.6 g/dL Normal 32-36 [facility] Comment on above: Performed By: #### L 100.0100, L501.5200, L500.4050 ####[facility] [address] [place], [address] MCV (RBC) [Entitic vol] 84.1 fL Normal 80-94 [facility] Comment on above: Performed By: #### L 100.0100, L501.5200, L500.4050 ####[facility] [address] [place], [address] Monocytes/100 WBC (Bld) 9.4 % Normal 0-10 [facility] Comment on above: Performed By: #### L 100.0100, L501.5200, L500.4050 ####[facility] [address] [place], [address] Neutrophils/100 WBC (Bld) 57.9 % Normal 47-70 [facility] Comment on above: Performed By: #### L 100.0100, L501.5200, L500.4050 ####[facility] [address] [place], [address] Nucleated RBC (Bld) [#/Vol] 0 10*3/uL Normal 0-5 [facility] Comment on above: Performed By: #### L 100.0100, L501.5200, L500.4050 ####[facility] [address] [place], [address] Platelet mean volume (Bld) [Entitic vol] 10.2 fL Normal 6.2-12.0 [facility] Comment on above: Performed By: #### L 100.0100, L501.5200, L500.4050 ####[facility] [address] [place], [address] Platelets (Bld) [#/Vol] 181 10*3/uL Normal 150-450 [facility] Comment on above: Performed By: #### L 100.0100, L501.5200, L500.4050 ####[facility] [address] [place], [address] RBC (Bld) [#/Vol] 4.16 10*6/uL Low 4.6-6.2 [facility] Comment on above: Performed By: #### L 100.0100, L501.5200, L500.4050 ####[facility] [address] [place], [address] RDW SD 50.3 fl High 35.1-43.9 [facility] Comment on above: Performed By: #### L 100.0100, L501.5200, L500.4050 ####[facility] [address] [place], [address] WBC (Bld) [#/Vol] 4.3 10*3/uL Low 4.4-11.0 [facility] Comment on above: Performed By: #### L 100.0100, L501.5200, L500.4050 ####[facility] [address] [place], [address] Comprehensive Metabolic Prof ilon 06-14-2024 Albumin [Mass/Vol] 3.9 g/dL Normal 3.5-5.0 [facility] Comment on above: Performed By: #### L 100.0100, L501.5200, L500.4050 ####[facility] [address] [place], [address] Albumin/Globulin [Mass ratio] 1.7 {ratio} Normal 0.9-2.4 [facility] Comment on above: Performed By: #### L 100.0100, L501.5200, L500.4050 ####[facility] [address] [place], [address] ALK PHOS 103 U/L Normal 40-129 [facility] Comment on above: Performed By: #### L 100.0100, L501.5200, L500.4050 ####[facility] [address] [place], [address] ALT [Catalytic activity/Vol] 11 U/L Normal <=46 [facility] Comment on above: Performed By: #### L 100.0100, L501.5200, L500.4050 ####[facility] [address] [place], [address] Anion gap [Moles/Vol] 11 mmol/L Normal 5-15 [facility] Comment on above: Performed By: #### L 100.0100, L501.5200, L500.4050 ####[facility] [address] [place], [address] AST [Catalytic activity/Vol] 18 U/L Normal <=37 [facility] Comment on above: Performed By: #### L 100.0100, L501.5200, L500.4050 ####[facility] [address] [place], [address] BUN/CRE 13.8 RATIO Normal 10-20 [facility] Comment on above: Performed By: #### L 100.0100, L501.5200, L500.4050 ####[facility] [address] [place], [address] Calcium [Mass/Vol] 8.7 mg/dL Normal 7.6-11.0 [facility] Comment on above: Performed By: #### L 100.0100, L501.5200, L500.4050 ####[facility] [address] [place], [address] Chloride [Moles/Vol] 107 mmol/L Normal 96-108 [facility] Comment on above: Performed By: #### L 100.0100, L501.5200, L500.4050 ####[facility] [address] [place], [address] CO2 [Moles/Vol] 23.5 mmol/L Normal 22.0-29.0 [facility] Comment on above: Performed By: #### L 100.0100, L501.5200, L500.4050 ####[facility] [address] [place], [address] Creatinine [Mass/Vol] 0.67 mg/dL Low 0.70-1.20 [facility] Comment on above: Performed By: #### L 100.0100, L501.5200, L500.4050 ####[facility] [address] [place], [address] ECRCL 147.55 ml/min Normal 50-250 [facility] Comment on above: Performed By: #### L 100.0100, L501.5200, L500.4050 ####[facility] [address] [place], [address] GFR/1.73 sq M.predicted among non-blacks MDRD (S/P/Bld) [Vol rate/Area] 111 mL/min/{1.73_m2} Normal >60 [facility] Comment on above: Result Comment: mL/m in/1.73m2 CKD-EPI Creatinine Equation (2020) Performed By: #### L 100.0100, L501.5200, L500.4050 ####[facility] [address] [place], [address] Globulin (S) [Mass/Vol] 2.3 g/dL Normal 2.2-4.2 [facility] Comment on above: Performed By: #### L 100.0100, L501.5200, L500.4050 ####[facility] [address] [place], [address] Glucose [Mass/Vol] 114 mg/dL High 70-99 [facility] Comment on above: Performed By: #### L 100.0100, L501.5200, L500.4050 ####[facility] [address] [place], [address] Potassium [Moles/Vol] 3.5 mmol/L Normal 3.3-5.1 [facility] Comment on above: Performed By: #### L 100.0100, L501.5200, L500.4050 ####[facility] [address] [place], [address] Sodium [Moles/Vol] 141 mmol/L Normal 133-145 [facility] Comment on above: Performed By: #### L 100.0100, L501.5200, L500.4050 ####[facility] [address] [place], [address] T BILI < 0.15 Normal 0.00-1.30 [facility] Comment on above: Performed By: #### L 100.0100, L501.5200, L500.4050 ####[facility] [address] [place], [address] T PROT 6.2 g/dL Normal 5.9-8.4 [facility] Comment on above: Performed By: #### L 100.0100, L501.5200, L500.4050 ####[facility] [address] [place], [address] Urea nitrogen [Mass/Vol] 9 mg/dL Normal 4-19 [facility] Comment on above: Performed By: #### L 100.0100, L501.5200, L500.4050 ####[facility] [address] [place], [address] Magnesiumon 06-14-2024 Magnesium [Mass/Vol] 2.0 mg/dL Normal 1.5-2.2 [facility] Comment on above: Performed By: #### L 100.0100, L501.5200, L500.4050 ####[facility] [address] [place], [address] Oncology Visit Reporton Oncology Visit Report [facility] [place] [facility] [address] [place] [address] OFFICE VISIT Date of Service: 06/14/24 0848 MR#: [id number] Acct: [id number] Name: ROSALVA WILLETT STAR Rep #: [id number] : 1970 From: Ashtyn Swain MD Age/Sex: 54/M Location: [facility] [place] Status: Signed HPI Subjective Date of Service 06/14/24 Chief Complaint Colon cancer History of Present Illness 54-year-old male presented in April 2024 with a few days long increasing abdominal pain. April 27, 2024 CT abdomen and pelvis: IMPRESSION: Colocolic intussusception. No obstruction. April 28, 2024 laparoscopic right hemicolectomy with ileocolic anastomosis. April 28, 2024 MICROSCOPIC DIAGNOSIS A. 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 See cancer summary in the comment section. B. Omentum: A piece of adipose tissue with congestion, hemorrhage, acute inflammation and fibrinous exudation. Negative for malignancy. C. Right colon staple line: Small intestine donut: No pathologic diagnosis. Colonic donut with serosal acute inflammation and fibrinous exudation. SJ.mr 05/03/2024 COMMENT A. COLON CANCER SUMMARY: Specimen - Right colon Procedure - Right hemicolectomy Tumor site - Ascending colon Tumor size - 6 x 4.5 x 3.5cm Macroscopic tumor perforation - Not identified Histologic type - Adenocarcinoma with extensive mucinous differentiation Histologic grade - Grade 2, moderately differentiated Microscopic tumor extension - Tumor invades through muscularis propria into pericolonic adipose tissue Margins: Margins are uninvolved by invasive carcinoma., high grade dysplasia, intramucosal carcinoma and adenoma. The tumor is 8cm away from the closest distal resection margin. Treatment effect - No known presurgical therapy Lymphvascular invasion - Not identified Perineural invasion - Not identified Tumor deposits - None identified Type of polyp in which invasive carcinoma arose - None identified Lymph nodes: Number of lymph nodes examined - 14 Number of lymph nodes involved - 1 The metastatic focus of tumor measures 0.4cm in greatest dimension. Extranodal extension is not identified Additional pathologic findings ??? Appendix with complete luminal obliteration. Colonic resection margin with serosal acute inflammation. Ancillary studies: IHC for microsatellite instability study by IHC ([id number]) will be reported separately. PATHOLOGIC STAGE: pT3p N1 pMx Result of Microsatellite Instability Study: Negative (no loss of mismatch protein; no microsatellite instability detected) May 21, [address]: IMPRESSION: No suspicious pulmonary nodules. No focal consolidation. Treatment summary and response: * April 28 2024 laparoscopic right hemicolectomy. * May 31, 2024 modified FOLFOX 6 PFSH Medical History Encounter for chemotherapy management Hypokalemia Iron deficiency anemia Anemia Regional lymph node metastasis present Colon cancer Smoker Intussusception Abdominal pain Surgical History Hx of surgical procedure H/O hemicolectomy Family History Father Colon cancer, Onset Age: 70 Mother Diabetes Social History Smoking Status: Former smoker (Patient quit smoking April 25 2024.) alcohol intake: never substance use type: does not use ROS Constitutional Constitutional: Denies fatigue, fever(s) or weight loss Eyes Eyes: Reports systems reviewed and no addt'l complaints, except as documented ENT HEENT: Reports systems reviewed and no addt'l complaints, except as documented; Denies mouth lesions Cardiovascular Cardiovascular: Reports systems reviewed and no addt'l complaints, except as documented; Denies chest pain with activity or edema Respiratory/Chest Respiratory/Chest: Reports systems reviewed and no addt'l complaints, except as documented; Denies cough or dyspnea Gastrointestinal Gastrointestinal: Reports systems reviewed and no addt'l complaints, except as documented and other Details: A single episode of diarrhea resolved after 1 dose of Imodium ; Denies abdominal pain, hematochezia, melena or nausea Genitourinary Genitourinary: Reports systems reviewed and no addt'l complaints, except as documented Musculoskeletal Musculoskeletal: Reports systems reviewed and no addt'l complaints, except as documented; Denies back pain Integumentary Integumentary: Reports systems reviewed and no addt'l complaints, except as documented; Denies new lesions Neurologic Neurologic: Reports systems reviewed and no addt'l complaints, except as documented; Denies focal weakness or pare (more content not included)... Normal [facility] Carcinoembryonic Antigenon 0 06-01-2024 CEA 8.1 ng/mL High 0.0-4.7 [facility] Comment on above: Result Comment: Nons mokers <3.9 Smokers <5.6 [facility] Electrochemiluminescence Immunoassay (ECLIA) Values obtained with different assay methods or kits cannot be used interchangeably. Results cannot be interpreted as absolute evidence of the presence or absence of malignant disease. Performed at: [address] [id number] Bunch Breaker: Alberto Burroughs PhD, Phone: [phone] Performed By: #### L 100.0100, L500.2500, L501.2300, L501.1260 #### [facility] [address] [place], [address] CBC W/Diff, Automatedon 05-15 Absolute Lymph 1.21 X10 3/uL Normal 0.83-4.51 [facility] Comment on above: Performed By: #### L 100.0100, L500.2500, L501.2300, L501.5200 #### [facility] [address] [place], [address] Absolute Neut 3.3 X10 3/uL Normal 2.0-7.7 [facility] Comment on above: Performed By: #### L 100.0100, L500.2500, L501.2300, L501.5200 #### [facility] [address] [place], [address] Basophils/100 WBC (Bld) 1.3 % High 0-1 [facility] Comment on above: Performed By: #### L 100.0100, L500.2500, L501.2300, L501.5200 #### [facility] [address] [place], [address] Eosinophils/100 WBC (Bld) 2.7 % Normal 0-5 [facility] Comment on above: Performed By: #### L 100.0100, L500.2500, L501.2300, L501.5200 #### [facility] [address] [place], [address] Erythrocyte distribution width (RBC) [Ratio] 15.2 % High 11.6-14.6 [facility] Comment on above: Performed By: #### L 100.0100, L500.2500, L501.2300, L501.5200 #### [facility] [address] [place], [address] Hematocrit (Bld) [Volume fraction] 36.5 % Low 40-54 [facility] Comment on above: Performed By: #### L 100.0100, L500.2500, L501.2300, L501.5200 #### [facility] [address] [place], [address] Hemoglobin (Bld) [Mass/Vol] 11.9 g/dL Low 13.0-16.5 [facility] Comment on above: Performed By: #### L 100.0100, L500.2500, L501.2300, L501.5200 #### [facility] [address] [place], [address] IG% 0.800 Normal 0.0-0.9 [facility] Comment on above: Result Comment: IG% - Immature Granulocytes (promyelocytes, myelocytes and metamyelocytes) > 1% indicates that a LEFT SHIFT is Present. Performed By: #### L 100.0100, L500.2500, L501.2300, L501.5200 #### [facility] [address] [place], [address] Lymphocytes/100 WBC (Bld) 23.1 % Normal 19-41 [facility] Comment on above: Performed By: #### L 100.0100, L500.2500, L501.2300, L501.5200 #### [facility] [address] [place], [address] MCH (RBC) [Entitic mass] 27.0 pg Normal 27.0-32.0 [facility] Comment on above: Performed By: #### L 100.0100, L500.2500, L501.2300, L501.5200 #### [facility] [address] [place], [address] MCHC (RBC) [Mass/Vol] 32.6 g/dL Normal 32-36 [facility] Comment on above: Performed By: #### L 100.0100, L500.2500, L501.2300, L501.5200 #### [facility] [address] [place], [address] MCV (RBC) [Entitic vol] 82.8 fL Normal 80-94 [facility] Comment on above: Performed By: #### L 100.0100, L500.2500, L501.2300, L501.5200 #### [facility] [address] [place], [address] Monocytes/100 WBC (Bld) 9.6 % Normal 0-10 [facility] Comment on above: Performed By: #### L 100.0100, L500.2500, L501.2300, L501.5200 #### [facility] [address] [place], [address] Neutrophils/100 WBC (Bld) 62.5 % Normal 47-70 [facility] Comment on above: Performed By: #### L 100.0100, L500.2500, L501.2300, L501.5200 #### [facility] [address] [place], [address] Nucleated RBC (Bld) [#/Vol] 0 10*3/uL Normal 0-5 [facility] Comment on above: Performed By: #### L 100.0100, L500.2500, L501.2300, L501.5200 #### [facility] [address] [place], [address] Platelet mean volume (Bld) [Entitic vol] 11.0 fL Normal 6.2-12.0 [facility] Comment on above: Performed By: #### L 100.0100, L500.2500, L501.2300, L501.5200 #### [facility] [address] [place], [address] Platelets (Bld) [#/Vol] 213 10*3/uL Normal 150-450 [facility] Comment on above: Performed By: #### L 100.0100, L500.2500, L501.2300, L501.5200 #### [facility] [address] [place], [address] RBC (Bld) [#/Vol] 4.41 10*6/uL Low 4.6-6.2 [facility] Comment on above: Performed By: #### L 100.0100, L500.2500, L501.2300, L501.5200 #### [facility] [address] [place], [address] RDW SD 44.6 fl High 35.1-43.9 [facility] Comment on above: Performed By: #### L 100.0100, L500.2500, L501.2300, L501.5200 #### [facility] [address] [place], [address] WBC (Bld) [#/Vol] 5.2 10*3/uL Normal 4.4-11.0 [facility] Comment on above: Performed By: #### L 100.0100, L500.2500, L501.2300, L501.5200 #### [facility] [address] [place], [address] Comprehensive Metabolic Prof scon 05-31-2024 Albumin [Mass/Vol] 3.5 g/dL Normal 3.2-5.0 [facility] Comment on above: Performed By: #### L 100.0100, L500.2500, L501.2300, L501.5200 #### [facility] [address] [place], [address] Albumin/Globulin [Mass ratio] 1.0 {ratio} Normal 0.9-2.4 [facility] Comment on above: Performed By: #### L 100.0100, L500.2500, L501.2300, L501.5200 #### [facility] [address] [place], [address] ALK P 100 U/L Normal 45-117 [facility] Comment on above: Performed By: #### L 100.0100, L500.2500, L501.2300, L501.5200 #### [facility] [address] [place], [address] ALT [Catalytic activity/Vol] 23 U/L Normal 16-61 [facility] Comment on above: Performed By: #### L 100.0100, L500.2500, L501.2300, L501.5200 #### [facility] [address] [place], [address] AST [Catalytic activity/Vol] 17 U/L Normal 15-37 [facility] Comment on above: Performed By: #### L 100.0100, L500.2500, L501.2300, L501.5200 #### [facility] [address] [place], [address] Bilirubin [Mass/Vol] 0.30 mg/dL Normal 0.20-1.00 [facility] Comment on above: Result Comment: For patients on eltrombopag therapy, use of Dimension Browns TBIL is not recommended. Performed By: #### L 100.0100, L500.2500, L501.2300, L501.5200 #### [facility] [address] [place], [address] BUN/CRE 7.0 RATIO Low 10-20 [facility] Comment on above: Performed By: #### L 100.0100, L500.2500, L501.2300, L501.5200 #### [facility] [address] [place], [address] CA,Total 9.1 mg/dL Normal 8.5-10.1 [facility] Comment on above: Performed By: #### L 100.0100, L500.2500, L501.2300, L501.5200 #### [facility] [address] [place], [address] Chloride [Moles/Vol] 108 mmol/L High 98-107 [facility] Comment on above: Performed By: #### L 100.0100, L500.2500, L501.2300, L501.5200 #### [facility] [address] [place], [address] CO2 [Moles/Vol] 26.0 mmol/L Normal 21.0-32.0 [facility] Comment on above: Performed By: #### L 100.0100, L500.2500, L501.2300, L501.5200 #### [facility] [address] [place], [address] Creatinine [Mass/Vol] 0.71 mg/dL Normal 0.70-1.30 [facility] Comment on above: Result Comment: The validity of the calculated GFR GFRAA in patients over 70 years has not been determined. Clinical correlation is essential. Performed By: #### L 100.0100, L500.2500, L501.2300, L501.5200 #### [facility] [address] [place], [address] ECRCL 143.48 ml/min Normal [facility] Comment on above: Performed By: #### L 100.0100, L500.2500, L501.2300, L501.5200 #### [facility] [address] [place], [address] EST GFR - AA 148 mL/min Normal >60 [facility] Comment on above: Result Comment: Afri can Thai GFR Calc Performed By: #### L 100.0100, L500.2500, L501.2300, L501.5200 #### [facility] [address] [place], [address] GAP 7 Normal 5-15 [facility] Comment on above: Performed By: #### L 100.0100, L500.2500, L501.2300, L501.5200 #### [facility] [address] [place], [address] GFR/1.73 sq M.predicted among non-blacks MDRD (S/P/Bld) [Vol rate/Area] 122 mL/min/{1.73_m2} Normal >60 [facility] Comment on above: Result Comment: Non- GFR Calc Performed By: #### L 100.0100, L500.2500, L501.2300, L501.5200 #### [facility] [address] [place], [address] Globulin (S) [Mass/Vol] 3.4 g/dL Normal 2.2-4.2 [facility] Comment on above: Performed By: #### L 100.0100, L500.2500, L501.2300, L501.5200 #### [facility] [address] [place], [address] Glucose [Mass/Vol] 119 mg/dL High 74-106 [facility] Comment on above: Result Comment: Fast ing Glucose result from 100 to 125 mg/dL suggests IMPAIRED HOMEOSTASIS per A.D.A. criteria. Performed By: #### L 100.0100, L500.2500, L501.2300, L501.5200 #### [facility] [address] [place], [address] Potassium [Moles/Vol] 3.4 mmol/L Low 3.5-5.1 [facility] Comment on above: Performed By: #### L 100.0100, L500.2500, L501.2300, L501.5200 #### [facility] [address] [place], [address] Sodium [Moles/Vol] 141 mmol/L Normal 136-145 [facility] Comment on above: Performed By: #### L 100.0100, L500.2500, L501.2300, L501.5200 #### [facility] [address] [place], [address] T PROT 6.9 g/dL Normal 6.4-8.2 [facility] Comment on above: Performed By: #### L 100.0100, L500.2500, L501.2300, L501.5200 #### [facility] [address] [place], [address] Urea nitrogen [Mass/Vol] 5 mg/dL Low 7-18 [facility] Comment on above: Performed By: #### L 100.0100, L500.2500, L501.2300, L501.5200 #### [facility] [address] [place], [address] Magnesiumon 05-31-2024 Magnesium [Mass/Vol] 1.8 mg/dL Normal 1.6-2.6 [facility] Comment on above: Performed By: #### L 100.0100, L500.2500, L501.2300, L501.5200 #### [facility] [address] [place], [address] Oncology Visit Reporton 05-15 Oncology Visit Report [facility] [address] 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 April 27, 2024 CT abdomen and pelvis: IMPRESSION: Colocolic intussusception. No obstruction. April 28, 2024 laparoscopic right hemicolectomy with ileocolic anastomosis. April 28, 2024 MICROSCOPIC DIAGNOSIS A. 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 See cancer summary in the comment section. B. Omentum: A piece of adipose tissue with congestion, hemorrhage, acute inflammation and fibrinous exudation. Negative for malignancy. C. Right colon staple line: Small intestine donut: No pathologic diagnosis. Colonic donut with serosal acute inflammation and fibrinous exudation. SJ.mr 05/03/2024 COMMENT A. COLON CANCER SUMMARY: Specimen - Right colon Procedure - Right hemicolectomy Tumor site - Ascending colon Tumor size - 6 x 4.5 x 3.5cm Macroscopic tumor perforation - Not identified Histologic type - Adenocarcinoma with extensive mucinous differentiation Histologic grade - Grade 2, moderately differentiated Microscopic tumor extension - Tumor invades through muscularis propria into pericolonic adipose tissue Margins: Margins are uninvolved by invasive carcinoma., high grade dysplasia, intramucosal carcinoma and adenoma. The tumor is 8cm away from the closest distal resection margin. Treatment effect - No known presurgical therapy Lymphvascular invasion - Not identified Perineural invasion - Not identified Tumor deposits - None identified Type of polyp in which invasive carcinoma arose - None identified Lymph nodes: Number of lymph nodes examined - 14 Number of lymph nodes involved - 1 The metastatic focus of tumor measures 0.4cm in greatest dimension. Extranodal extension is not identified Additional pathologic findings ??? Appendix with complete luminal obliteration. Colonic resection margin with serosal acute inflammation. Ancillary studies: IHC for microsatellite instability study by IHC ([id number]) will be reported separately. PATHOLOGIC STAGE: pT3p N1 pMx Right krupa colectomy: Invasive adenocarcinoma with mucinous differentiation. Result of Microsatellite Instability Study: Negative (no loss of mismatch protein; no microsatellite instability detected) May 21, 2024 CT Chest WITH Contrast IMPRESSION: No suspicious pulmonary nodules. No focal consolidation. Treatment summary and response: April 28 2024 laparoscopic right hemicolectomy Adjvuant FOLFOX May 31, 2024- Interval History The patient is presenting to clinic accompanied by spouse for an evaluation anticipating he will begin adjuvant FOLFOX. Reports he experienced 2 episodes of loose stool 2 days ago, now resolved. LBM yesterday. [facility] Medical History (Updated 05/31/24 @ 09:45 by Ami Turpin TRENCHING MACHINE OPERATOR, TRENCHING MACHINE OPERATOR-C) Encounter for chemotherapy management Hypokalemia Iron deficiency anemia Anemia Regional lymph node metastasis present Colon cancer Smoker Intussusception Abdominal pain Surgical History Hx of surgical procedure H/O hemicolectomy Family History Father Colon cancer, Onset Age: 70 Mother Diabetes Social History Smoking Status: Former smoker (Patient quit smoking April 25 2024.) alcohol intake: never substance use type: does not use ROS ROS Narrative Negative except as documented in the interval HPI Intake Vital Signs 05/17/24 14:22 05/31/24 08:21 Height 5 ft 11 in 5 ft 9 in Weight: 221 lb 1 oz BMI 32.6 BP 125/83 H Blood Pressure Location Lt brachial Position Sitting Respiration 18 Pulse 76 Pulse Source Monitor Temp 97.7 F L Temperature Source Temporal Artery Pulse Oximetry (%) 99 Oxygen Delivery Method room air Intake Is patient in pain?: No Allergies No Known Allergies Allergy (Verified 05/31/24 08:25) Medications ???Medication ???Instructions ???Recorded ???Confirmed ???Type lidocaine-prilocaine 2.5 %-2.5 % 1 applic topical ONCE PRN port 07/0605/31/24 Rx topical cream acces 30 days #30 grams ondansetron 8 mg disintegrating 8 mg PO Q8H PRN nausea and 5 05/31/24 Rx tablet vomiting #30 tabs prochlorperazine maleate 10 mg 10 mg PO Q6 (more content not included)... Normal [facility] Colonoscopy Reporton 025 Colonoscopy Report [facility] Medical Records Department [address] [place] [address] Colonoscopy Report MR#: [id number] Acct: [id number] Name: ROSALVA WILLETT Rep #: [id number] : 1970 54 From: Ruddy Coffman MD PCP: Dr. Demetrius Phelps, DO Status:[place] [facility] Patient Name: Rosalva Willett Procedure Date: 05/26/2024 11:21 AM Date of : 1970 Age: 54 Procedure: Colonoscopy Indications: Follow-up of colon cancer Providers: Ruddy Coffman MD Referring MD: Ruddy Coffman MD Medicines: See the Anesthesia note for documentation of the administered medications Patient Profile: Last Colonoscopy: none. The patient's first colonoscopy is today. Complications: No immediate complications. Estimated blood loss: Minimal. Procedure: Pre-Anesthesia Assessment: - The heart rate, respiratory rate, oxygen saturations, blood pressure, adequacy of pulmonary ventilation, and response to care were monitored throughout the procedure. After I obtained informed consent, the scope was passed under direct vision. Throughout the procedure, the patient's blood pressure, pulse, and oxygen saturations were monitored continuously. The adult colonoscope was introduced through the anus and advanced to the ileocolonic anastomosis. The colonoscopy was performed without difficulty. The patient tolerated the procedure well. The quality of the bowel preparation was adequate to identify polyps greater than 5 mm in size. The colonoscopy was performed without difficulty. Scope In: 11:30:04 AM Scope Withdrawal Time 0 hours 22 minutes 3 seconds Scope Out: 11:55:52 AM Total Procedure Duration Time 0 hours 25 minutes 48 seconds Findings: The perianal and digital rectal examinations were normal. A 5 mm, non-bleeding polyp was found in the sigmoid colon. The polyp was semi-pedunculated. The polyp was removed with a hot snare. Resection and retrieval were complete. Estimated blood loss was minimal. Non-bleeding internal hemorrhoids were found during retroflexion. The hemorrhoids were mild and Grade I (internal hemorrhoids that do not prolapse). No biopsies or other specimens were collected for this exam. The exam was otherwise without abnormality on direct and retroflexion views. Impression: - One 5 mm, non-bleeding polyp in the sigmoid colon, removed with a hot snare. Resected and retrieved. - Non-bleeding internal hemorrhoids. No specimens collected. - The examination was otherwise normal on direct and retroflexion views. Recommendation: - Discharge patient to home (via wheelchair). - Resume regular diet today. - No aspirin, ibuprofen, naproxen, or other non-steroidal anti-inflammatory drugs for 2 days after polyp removal. - Await pathology results. - Repeat colonoscopy date to be determined after pending pathology results are reviewed for surveillance based on pathology results. - Telephone my office for pathology results in 1 week. Procedure Code(s): --- Professional --- 72330, Colonoscopy, flexible; with removal of tumor(s), polyp(s), or other lesion(s) by snare technique Diagnosis Code(s): --- Professional --- D12.5, Benign neoplasm of sigmoid colon K64.0, First degree hemorrhoids C18.9, Malignant neoplasm of colon, unspecified CPT copyright 2021 [employer]. All rights reserved. The codes documented in this report are preliminary and upon rn primary care review may be revised to meet current compliance requirements. Ruddy Coffman MD 05/26/2024 12:09:37 PM This report has been signed electronically. Number of Addenda: 0 Note Initiated On: 05/26/2024 11:21 AM 05/26/24 1209 Date Ruddy Coffman MD Cosigner Signature: Date (if indicated) CC: Dr. Demetrius Phelps DO; Dr. Ruddy Coffman MD Date Dictated: 05/26/24 1121 Date Transcribed: Psychiatric Technician: JACEK Signed [facility] MR/POSTOP.[facility] 05-26-2024 MR/POSTOP.[facility] Medical Records Department [address] [place] [address] Anesthesia Postop Eval I 05/26/24 1207 MR#: [id number] Acct: [id number] Name: ROSALVA WILLETT Rep #: [id number] : 1970 54 From: Geovanni Chopra PCP: Dr. Demetrius Phelps DO Status:REG SDC Y Race: C Location: [place] [address] Anesthesia: Postop Eval I Current Vital Signs Temperature: 97.1 F Pulse Rate: 67 Blood Pressure: 116/82 Respiratory Rate: 16 Pulse Ox: 97 Oxygen Delivery Method: Room Air Assessment Airway patent: Yes Spontaneous unlabored respirations: Yes Mental status: Awake and Calm nausea: No Vomiting: No Anesthesia Complication: No Fluid Hydration Crystalloid volume administer (ml): 60 Total IV fluid infused: 60 Progress Note Anesthesia document: Postop Eval 1 completed: Yes 05/26/24 1208 Date Geovanni Adkinsigner Signature: Date CC: Signed Normal [facility] MR/[id number] 05-26-2024 MR/POSTOPAN2 [facility] Medical Records Department [address] [place] [address] Anesthesia Postop Eval II 05/26/24 1215 MR#: [id number] Acct: [id number] Name: ROSALVA WILLETT Rep #: [id number] : 1970 54 From: Star Adkins MD PCP: Dr. Demetrius Phelps, DO Status:REG SDC Y Race: C Location: [place] [address] Anesthesia Postop Eval I Sum Postop Eval Completion status Anesthesia document: Postop Eval 1 completed: Yes Anesthesia Postop Eval I Summary Anesthesia Postop Eval I Summary: Anesthesia Postop Eval I: Assessment Summary Airway patent Yes 05/26/24 12:08 [email or web address] Spontaneous unlabored Yes 05/26/24 12:08 [email or web address] respirations Mental status Awake,Calm 05/26/24 12:08 [email or web address] nausea No 05/26/24 12:08 [email or web address] Vomiting No 05/26/24 12:08 [email or web address] Anesthesia Postop Eval I: Fluid Summary Crystalloid volume administer 60 05/26/24 12:08 [email or web address] (ml) Colloids volume administered ( ml) Blood Product volume administered (ml) Total IV fluid infused 60 05/26/24 12:08 [email or web address] Anesthesia Postop Eval I: Summary Notes Anesthesia Complication No 05/26/24 12:08 [email or web address] Anesthesia Complication Comment: Post-operative progress note Anesthesia: Postop Eval II Evaluation Mental status: Awake Pain Level: 0 nausea: No Vomiting: No 05/26/24 1215 Date Star Wan Signature: Date CC: Signed Normal [facility] Surgery Specimen Level Christine 05-26-2024 Surgery Specimen Level IV Patient Age/Sex Location Account Attending Physician ROSALVA WILLETT 54/M EN [id number] Dr. Ruddy Coffman MD Specimen: [id number] Received: 05/26/24 Status: FIFI [place] Num: [id number] Spec Type: COLON BX Subm Dr: Dr. Ruddy Coffman MD HEADER OPERATION: Colonoscopy with polypectomy and biopsy PRE-OP DIAGNOSIS: Colon cancer TISSUE SUBMITTED: Sigmoid colon polyp with polypectomy and biopsy MICROSCOPIC DIAGNOSIS Sigmoid colon polyp, polypectomy: Fragments of tubular adenoma. [facility] 05/27/2024 MICROSCOPIC DESCRIPTION Slides are reviewed. GROSS DESCRIPTION Received in fixative is one container labeled with the patient's name and designated Sigmoid colon poly and biopsy. The specimen consists of two irregular fragments of light barone soft tissue that in aggregate measure 0.8 x 0.2 x 0.1 cm. The specimen is totally submitted in one cassette. [facility] 05/26/2024 TC:1 CPT:76770 Patient Age/Sex Location Account Attending Physician ROSALVA WILLETT 54/M EN [id number] Dr. Ruddy Coffman MD Signed (signature on file) Dr. Anirudh Rico MD 05/27/24 1324 Normal [facility] Comment on above: Performed By: #### P SUIV ####[facility] [address] [place], [place], [address] Chest WITH Contraston 2024 Chest WITH Contrast [facility] Imaging Services [address] [place], [place] [address] Chest WITH Contrast MR#: [id number] Acct: [id number] Name: ROSALVA WILLETT Rep #: [id number] : 1970 M 54 From: Demetrius Puckett MD PCP: Dr. Demetrius Phelps, DO Status: REG CLI Study: Chest WITH Contrast Date of Exam: 05/21/24 Exam# [id number] Ordering Dr: Ruddy Coffman MD EXAM: CT Chest With Intravenous Contrast CLINICAL INDICATION: TECHNIQUE: Axial computed tomography images of the chest with intravenous contrast. This CT exam was performed using one or more of the following dose reduction techniques: automated exposure control, adjustment of the mA and/or kV according to patient size, and/or use of iterative reconstruction technique. COMPARISON: No relevant prior studies available. FINDINGS: LUNGS AND PLEURAL SPACES: Lung emphysema. 3 mm ground-glass nodule of the right major fissure. No consolidation. No pneumothorax. No significant effusion. No suspicious pulmonary nodules. HEART: Unremarkable. No cardiomegaly. No significant pericardial effusion. No significant coronary artery calcifications. BONES/JOINTS: Unremarkable. No acute fracture. No dislocation. SOFT TISSUES: Unremarkable. VASCULATURE: Unremarkable. No thoracic aortic aneurysm. LYMPH NODES: Unremarkable. No enlarged lymph nodes. LIVER: Fatty infiltration of the liver. CT/Chest WITH Contrast IMPRESSION: No suspicious pulmonary nodules. No focal consolidation. Reading Location: [facility] CC: Dr. Demetrius Phelps DO; Dr. Ruddy Coffman MD Psychiatric Technician: Signed Normal [facility] CXR for Line Placementon CXR for Line Placement [facility] Imaging Services [address] [place] [address] CXR for Line Placement MR#: [id number] Acct: [id number] Name: ROSALVA WILLETT Rep #: [id number] : 1970 M 54 From: Demetrius Puckett MD PCP: Dr. Demetrius Phelps DO Status: [facility] Study: CXR for Line Placement Date of Exam: 05/18/24 Exam# [id number] Ordering Dr: Ruddy Coffman MD EXAM: XR Chest, 1 View CLINICAL INDICATION: TECHNIQUE: Frontal view of the chest. COMPARISON: No relevant prior studies available. FINDINGS: LUNGS AND PLEURAL SPACES: See below. HEART: Unremarkable. No cardiomegaly. MEDIASTINUM: Unremarkable. Normal mediastinal contour. BONES/JOINTS: Unremarkable. No acute fracture. TUBES, LINES AND DEVICES: Right-sided MediPort placement with the distal tip in the SVC. No pneumothorax. RAD/CXR for Line Placement IMPRESSION: Right-sided MediPort placement with the distal tip in the SVC. No pneumothorax. Reading Location: [facility] CC: Dr. Demetrius Phelps DO; Dr. Ruddy Coffman MD Psychiatric Technician: Signed Normal [facility] Discharge Instructionon Discharge Instruction [facility] Medical Records Department [address] [place] [address] Instructions for Home/Discharge Instructions 05/18/24 0954 MR#: [id number] Acct: [id number] Name: ROSALVA WILLETT Rep #: [id number] : 1970 54 From: Ruddy Coffman MD PCP: Dr. Demetrius Phelps DO Status:REG SD Discharge Instructions Diet Discharge Diet: No restrictions Activity Discharge Activity: May Shower Dressing / Incision Call your doctor if your incision/area has: Continuous Slow Oozing, Sudden Increased Bleeding, Increased Pain/ Swelling, Increased Redness, Foul Smelling Discharge and Swelling at the incision site Call your doctor if you observe: Fever of 101 or Higher and Uncontrolled pain Cleanse incision/area with: Soap Water Follow Up Care Test Results: Test results from this visit will be discussed in further detail at your follow-up appointment, if applicable. Discharge Plan Admission Primary Reason for Your Visit: Port placement Attending Provider: Ruddy Coffman Primary Care Provider: Demetrius Phelps Instructions Print Language: Romansh Discharge Orders/Prescriptions Prescriptions: No Action lidocaine-prilocaine 2.5-2.5 % cream 1 applic topical ONCE PRN (Reason: port acces) 30 Days Qty: 30 2RF ondansetron 8 mg tablet,disintegrating 8 mg PO Q8H PRN (Reason: nausea and vomiting) Qty: 30 2RF prochlorperazine maleate 10 mg tablet 10 mg PO Q6H PRN (Reason: nausea and vomiting) Qty: 30 2RF Referrals / Follow Up: Demetrius Phelps DO [Primary Care Provider] - Disposition Disposition (needs filled in before D/C Order can be placed): Home, Self Care 05/18/24 0955 Ruddy Coffman MD CC: Dr. Demetrius Phelps DO Signed [facility] MR/POSTOP.[facility] 05-18-2024 MR/POSTOP.[facility] Medical Records Department [address] [place] [address] Anesthesia Postop Eval I 05/18/24 1000 MR#: [id number] Acct: [id number] Name: ROSALVA WILLETT Rep #: [id number] : 1970 54 From: Matheus Taylor CRNA PCP: Dr. Demetrius Phelps, Status:REG SDC Y Race: C Location: [place] [address] Anesthesia: Postop Eval I Current Vital Signs Temperature: 36 F Pulse Rate: 78 Blood Pressure: 110/60 Respiratory Rate: 16 Pulse Ox: 98 Oxygen Delivery Method: Simple Mask Oxygen Flow Rate (L/min): 4 Assessment Airway patent: Yes Spontaneous unlabored respirations: Yes Mental status: Asleep nausea: No Vomiting: No Anesthesia Complication: No Fluid Hydration Crystalloid volume administer (ml): 10 Total IV fluid infused: 10 Progress Note Anesthesia document: Postop Eval 1 completed: Yes 05/18/24 1000 Date Matheus Click PATTERN GRADER CUTTER Cosigner Signature: Date CC: Signed Normal [facility] MR/[id number] 05-18-2024 MR/POSTOPAN2 [facility] Medical Records Department [address] [place] [address] Anesthesia Postop Eval II 05/18/24 1040 MR#: [id number] Acct: [id number] Name: ROSALVA WILLETT Rep #: [id number] : 1970 54 From: Mayte Benites PCP: Dr. Demetrius Phelps, DO Status:REG SDC Y Race: C Location: [place] [address] Anesthesia Postop Eval I Sum Postop Eval Completion status Anesthesia document: Postop Eval 1 completed: Yes Anesthesia Postop Eval I Summary Anesthesia Postop Eval I Summary: Anesthesia Postop Eval I: Assessment Summary Airway patent Yes 05/18/24 10:00 PATTERN GRADER CUTTER.MARCUS Spontaneous unlabored Yes 05/18/24 10:00 PATTERN GRADER CUTTER.JCJANNA respirations Mental status Asleep 05/18/24 10:00 PATTERN GRADER CUTTER.JCLI nausea No 05/18/24 10:00 PATTERN GRADER CUTTER.JCLI Vomiting No 05/18/24 10:00 PATTERN GRADER CUTTER.JCJANNA Anesthesia Postop Eval I: Fluid Summary Crystalloid volume administer 10 05/18/24 10:00 PATTERN GRADER CUTTER.JCLI (ml) Colloids volume administered ( ml) Blood Product volume administered (ml) Total IV fluid infused 10 05/18/24 10:00 PATTERN GRADER CUTTERZULEIKA Anesthesia Postop Eval I: Summary Notes Anesthesia Complication No 05/18/24 10:00 PATTERN GRADER CUTTERZULEIKA Anesthesia Complication Comment: Post-operative progress note Anesthesia: Postop Eval II Evaluation Mental status: Awake Pain Level: 1 nausea: No Vomiting: No 05/18/24 1040 Date Mayte Adkinsigner Signature: Date CC: Signed Normal [facility] Operative Reporton 5 Operative Report [facility] Medical Records Department [address] [place] [address] Operative Report 05/18/24 0952 MR#: [id number] Acct: [id number] Name: ROSALVA WILLETT STAR Rep #: [id number] : 1970 54 From: Ruddy Coffman MD PCP: Dr. Demetrius Phelps, DO Status:[facility] Location: [place] [address] Procedures Cardiovascular CF Procedures 33xxx-39xxx: [id number] Insert tunneled cv cath Operative Report (Standard) Operative Information Date of Procedure: 05/18/24 Pre-Operative Diagnosis: Colon cancer with lymph node metastasis requiring durable venous access for administration of chemotherapy Post-Operative Diagnosis: Same Surgery/Procedure Performed: Ultrasound and fluoroscopic guided placement of 8 [place]an right internal jugular Port-A-Cath biological engineer: No Type of Anesthesia: MAC/Supplemental RN Documented Start/Stop Times: Operation Date: 05/18/24 08:45 Case Time Into Pre-Op 05/18/24 07:03 Out of Pre-Op 05/18/24 08:43 Anesthesia Start 05/18/24 08:45 Into Room 05/18/24 08:45 Procedure Start 05/18/24 09:16 Procedure End 05/18/24 09:49 Anesthesia End 05/18/24 09:55 Out of Room 05/18/24 09:55 Into Recovery 05/18/24 09:57 Into Phase II Recovery 05/18/24 10:19 Out of Recovery 05/18/24 10:19 Procedure Start Time: 09:16 Procedure Stop Time: 09:49 Select all DRAINS/GRAFTS/IMPLANTS that apply: Implanted device (8 [place]andan PowerPort ISP MRI implantable port) Implanted device details: Reference [id number], lot [id number] Estimated Blood Loss: 5 Specimen collected: No Description of surgery: After appropriate identification in the preoperative holding area the patient was brought to the operating room. There he was administered preoperative antibiotics and positioned supine on the operating room table. Once sedation was begun, the upper chest and lower cervical region were prepped and draped in usual sterile fashion. A formal timeout was then conducted to confirm both the patient and procedure. Ultrasound was used to localize the right internal jugular vein. Then a wheal of quarter percent bupivacaine with epinephrine was raised superficially in this location and the vein was accessed with 1 attempt under direct ultrasound guidance using a Seldinger technique and a standard 035 guidewire was placed. Next the position of the port pocket was determined and again local anesthetic was used to anesthetize the area of both the pocket and the tunneling cephalad. A transverse incision 3 cm in width was made down through the subcutaneous tissue. Selective electrocautery was used to obtain hemostasis. Then with blunt dissection the port pocket was developed. The catheter was connected to the tunneler and was tunneled up to the position of the guidewire. Here the dilator and peel-away sheath were placed over the guidewire and the guidewire was removed. Position was again confirmed with fluoroscopy. The catheter length was estimated based on the external placement of a hemostat to approximate the level of the hung and the cavoatrial junction. The catheter was then fed into the sheath and slowly the sheath was peeled away as the catheter was inserted fully into the neck. Back in the chest the excess catheter was trimmed and the port was connected to the catheter. The port was tied into the pocket using 3-0 Vicryl. Function was then tested using sterile saline on a Noland needle. It was locked with 3 mL of heparinized saline (concentration 50U/5mL). The port pocket was closed with a deep dermal stitch using a running 3-0 Vicryl followed by 4-0 Monocryl subcuticular stitch. The 1 cm incision in the neck was closed with a single interrupted subcuticular stitch using 4-0 Monocryl. Dermabond was applied as a dressing. Patient was then aroused from the sedation and taken to PACU for ongoing recovery were a portable chest x-ray was obtained to confirm port positioning and exclude any pneumothorax. Surgical Findings: ??? Normal vascular anatomy with port placed such that the tip resided a few centimeters beyond the right mainstem bronchus approximating the cavoatrial junction Complications Complications: No Admit VTE Documentation VTE Mechan Device Prophylaxis: SCD's 05/18/24 1046 Cosigner Signature (if applicable): CC: Dr. Demetrius Phelps DO; Dr. Ruddy Coffman MD Signed Normal [facility] Oncology Visit Reporton Oncology Visit Report [facility] [address] [place] [address]. [place] [address] OFFICE VISIT Date of Service: 05/17/24 1420 MR#: [id number] Acct: [id number] Name: ROSALVA WILLETT Rep #: [id number] : 1970 From: Ami Turpin NP TRENCHING MACHINE OPERATOR -C Age/Sex: 54/M Location: [facility] Status: Signed HPI Subjective Date of Service 05/17/24 Chief Complaint Chemotherapy Education- FOLFOX History of Present Illness 54-year-old male presented in April 2024 with a few days long increasing abdominal pain. April 27, 2024 CT abdomen and pelvis: IMPRESSION: Colocolic intussusception. No obstruction. April 28, 2024 laparoscopic right hemicolectomy with ileocolic anastomosis. April 28, 2024 MICROSCOPIC DIAGNOSIS A. 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 See cancer summary in the comment section. B. Omentum: A piece of adipose tissue with congestion, hemorrhage, acute inflammation and fibrinous exudation. Negative for malignancy. C. Right colon staple line: Small intestine donut: No pathologic diagnosis. Colonic donut with serosal acute inflammation and fibrinous exudation. SJ.mr 05/03/2024 COMMENT A. COLON CANCER SUMMARY: Specimen - Right colon Procedure - Right hemicolectomy Tumor site - Ascending colon Tumor size - 6 x 4.5 x 3.5cm Macroscopic tumor perforation - Not identified Histologic type - Adenocarcinoma with extensive mucinous differentiation Histologic grade - Grade 2, moderately differentiated Microscopic tumor extension - Tumor invades through muscularis propria into pericolonic adipose tissue Margins: Margins are uninvolved by invasive carcinoma., high grade dysplasia, intramucosal carcinoma and adenoma. The tumor is 8cm away from the closest distal resection margin. Treatment effect - No known presurgical therapy Lymphvascular invasion - Not identified Perineural invasion - Not identified Tumor deposits - None identified Type of polyp in which invasive carcinoma arose - None identified Lymph nodes: Number of lymph nodes examined - 14 Number of lymph nodes involved - 1 The metastatic focus of tumor measures 0.4cm in greatest dimension. Extranodal extension is not identified Additional pathologic findings ??? Appendix with complete luminal obliteration. Colonic resection margin with serosal acute inflammation. Ancillary studies: IHC for microsatellite instability study by IHC ([id number]) will be reported separately. PATHOLOGIC STAGE: pT3p N1 pMx Right krupa colectomy: Invasive adenocarcinoma with mucinous differentiation. Result of Microsatellite Instability Study: Negative (no loss of mismatch protein; no microsatellite instability detected) Treatment summary and response: April 28 2024 laparoscopic right hemicolectomy Interval History The patient is presenting to clinic accompanied by spouse for a chemotherapy education visit. [facility] Medical History Iron deficiency anemia Anemia Regional lymph node metastasis present Colon cancer Smoker Intussusception Abdominal pain Surgical History H/O hemicolectomy Family History Father Colon cancer, Onset Age: 70 Mother Diabetes Social History Smoking Status: Former smoker (Patient quit smoking April 25 2024.) alcohol intake: never substance use type: does not use ROS Constitutional Constitutional: Reports fatigue; Denies fever(s) or weight loss Eyes Eyes: Reports systems reviewed and no addt'l complaints, except as documented ENT HEENT: Reports systems reviewed and no addt'l complaints, except as documented; Denies mouth lesions Cardiovascular Cardiovascular: Reports systems reviewed and no addt'l complaints, except as documented; Denies chest pain with activity or edema Respiratory/Chest Respiratory/Chest: Reports systems reviewed and no addt'l complaints, except as documented; Denies cough or dyspnea Gastrointestinal Gastrointestinal: Reports systems reviewed and no addt'l complaints, except as documented; Denies abdominal pain, hematochezia, melena or nausea Genitourinary Genitourinary: Reports systems reviewed and no addt'l complaints, except as documented Musculoskeletal Musculoskeletal: Reports systems reviewed and no addt'l complaints, except as documented; Denies back pain Integumentary Integumentary: Reports systems reviewed and no addt'l complaints, except as documented; Denies new lesions Neurologic Neurologic: Reports systems reviewed and no addt'l complaints, except as documented; Denies focal weakness or paresthesias Psychiatric Psychiatric: Reports system (more content not included)... Normal [facility] Surgery Visit Reporton 05-17 Surgery Visit Report [facility] [address] [place] [address] OFFICE VISIT Date of Service: 05/17/24 MR#: [id number] Acct: [id number] Name: ROSALVA WILLETT Rep #: [id number] : 1970 Provider: Dr. Ruddy marti MD Age/Sex: 54/M Location: [facility] Status: Signed Intake Vital Signs 05/11/24 09:04 05/17/24 12:29 Height 5 ft 11 in 5 ft 11 in Weight: 217 lb 2 oz BMI 30.2 BP 122/81 H Blood Pressure Location Rt brachial Position Sitting Respiration 18 Pulse 82 Pulse Source Monitor Temp 97.8 F Temp Source Temporal Pulse Oximetry (%) 99 Oxygen Delivery Method room air Intake Visit Reasons: PORT PLACEMENT Chief Complaint: port placement Accompanied by: Is patient in pain?: No Allergies No Known Allergies Allergy (Verified 05/17/24 14:29) Medications ???Medication ???Instructions ???Recorded ???Confirmed ???Type lidocaine-prilocaine 2.5 %-2.5 % 1 applic topical ONCE PRN port 07/0605/17/24 Rx topical cream acces 30 days #30 grams ondansetron 8 mg disintegrating 8 mg PO Q8H PRN nausea and 5 05/17/24 Rx tablet vomiting #30 tabs prochlorperazine maleate 10 mg 10 mg PO Q6H PRN nausea and 05/17/24 Rx tablet vomiting #30 tabs PFSH Medical History (Updated 05/17/24 @ 17:[address] Ruddy Coffman MD) Iron deficiency anemia Anemia Regional lymph node metastasis present Colon cancer Smoker Intussusception Abdominal pain Surgical History H/O hemicolectomy Family History Father Colon cancer, Onset Age: 70 Mother Diabetes Social History Smoking Status: Current every day smoker tobacco type: cigars alcohol intake: never substance use type: does not use HPI HPI HPI: Patient is a 54-year-old male who presents for consideration of port placement after he was diagnosed with colon cancer and isabel metastasis in the aftermath of a laparoscopic assisted right hemicolectomy by me on 04/28/2024. He presents today with his . They have met with oncology and plans are to begin chemotherapy but the date is yet to be set. He shares today that he is feeling great. He denies any pain or bowel issues. Patient has no prior history of central line placement. Patient has no pacemaker or intracardiac defibrillator. Mr. Willett has no history of staph infection. Beyond consideration of port placement Mr. Willett is here for consideration of possible colonoscopy. ROS General General: Yes weight change (loss) and colon cancer; No appetite, fatigue, breast cancer or weakness HEENT HEENT: No difficulty swallowing, eye injury, eye surgery, swollen glands or hoarseness Endo Endocrine: No thyroid disease, diabetes mellitus, thyroid cancer, Hair loss, heat intolerance or cold intolerance Skin Skin: No rash or changing moles Musc Musculoskeletal: No back problems, arthritis, rheumatoid arthritis, gout or joint pain Cardio Cardiovascular: No murmur, pacemaker, heart disease, atrial fibrillation, high blood pressure, heart attack, heart stent, palpitations, shortness of breat with exertion or chest pain Psych Psychiatric: No depression, anxiety or hearing voices Resp Respiratory: No shortness of breath, No sleep apnea, No cough, No COPD, No asthma, No emphysema and No wheezing Gastro Gastrointestinal: No abdominal pain, No nausea or vomiting, No diarrhea, No constipation, No blood in stool, No acid reflux, No hemorrhoids, No ulcers, No gallbladder problem and No black,tarry stools Willie Hematologic: No blood thinners, No blood disorders, No bleeding, No anemia and No blood clots Neuro Neurologic: No numbness, No tingling and No weakness Exam Const General: cooperative, comfortable and no acute distress Orientation: alert, awake and oriented x3 Chest Other: No scars, no rashes or erythema Resp Effort Inspection: normal respiratory effort GI Other: Nondistended, crusted blood adherent to patient's midline wound, otherwise well-healing without signs of infection. Soft, nontender to palpation x 4 quadrants Assessment and Plan Assessment and Plan (1) Colon cancer: Status: Acute Comment: Patient is a 54-year-old male with colon cancer diagnosed of the hepatic flexure status post right hemicolectomy after emergent presentation for colocolonic intussusception. Unfortunately there is evidence of lymph node metastasis so he requires adjuvant chemotherapy. Also per NCCN guidelines we should plan to complete a colonoscopy to evaluate for any synchronous lesions. I have requested we plan for this procedure prior to initiating chemothera (more content not included)... Normal [facility] Carcinoembryonic Antigenon 0 05-12-2024 CEA 7.4 ng/mL High 0.0-4.7 [facility] Comment on above: Result Comment: Nons mokers <3.9 Smokers <5.6 [facility] Electrochemiluminescence Immunoassay (ECLIA) Values obtained with different assay methods or kits cannot be used interchangeably. Results cannot be interpreted as absolute evidence of the presence or absence of malignant disease. Performed at: [address] [id number] Bunch Breaker: Alberto Burroughs PhD, Phone: [phone] Performed By: #### L 100.0100, L500.2500, L501.2300, L501.6900 #### [facility] [address] [place], [address] Surgery Visit Reporton 05-12 Surgery Visit Report [facility] [address] [place] [address] OFFICE VISIT Date of Service: 05/12/24 MR#: [id number] Acct: [id number] Name: ROSALVA WILLETT Rep #: [id number] : 1970 Provider: USHA madrid Age/Sex: 54/M Location: [facility] Status: Signed Intake Vital Signs 04/28/24 15:03 05/11/24 09:04 Height 5 ft 11 in 5 ft 11 in Intake Visit Reasons: hemicolectomy DOS 04/28 Chief Complaint: hemicolectomy DOS 04/28 Is patient in pain?: No Allergies No Known Allergies Allergy (Verified 05/12/24 11:34) Medications ???Medication ???Instructions ???Recorded ???Confirmed ???Type NK 05/11/24 05/12/24 History Subjective Details: Patient is a 54 y/o M I am following s/p laparoscopic right hemicolectomy by Dr. Coffman on 04/28/24. Patient tolerated the procedure well. He returns to have his erma removed. He denies any nausea, vomiting, fever. He notes appetite has returned to normal. He notes bowel habits are slightly loose, however he is going. He denies any abdominal pain today. He followed with oncology who is recommending chemotherapy and possible iron supplementation IV. Objective Details: Abdomen- all erma were removed without any bleeding or concerns. Soft, non-tender. Coding Level of Care Code Global Post Op Diagnoses S/P right hemicolectomy Z90.49 [facility] Medical History (Updated 05/11/24 @ 09:[address] Ashtyn Swain MD) Anemia Regional lymph node metastasis present Colon cancer Smoker Intussusception Abdominal pain Surgical History (Updated 05/13/24 @ 15:52 by Gladys SUAREZ PA-C) H/O hemicolectomy Family History (Updated 05/11/24 @ 09:03 by Gisselle Castro) Father Colon cancer, Onset Age: 70 Mother Diabetes Social History (Updated 05/11/24 @ 09:03 by Gisselle Castro) Smoking Status: Current every day smoker tobacco type: cigars alcohol intake: never substance use type: does not use Assessment and Plan (No Qualifiers) Assessment and Plan (1) S/P right hemicolectomy: Status: Acute Plan: Follow-up on Friday to discuss port placement, which is scheduled for Thursday 05/18 Dr. Coffman also wants to discuss a colonoscopy as patient has not had a complete one Patient is scheduled to be off for 4-6 weeks from surgery 05/13/24 6850 Date Gladys Wan Signature: Date (if applicable) CC: Normal [facility] CBC W/Diff, Automatedon 04-15 Absolute Lymph 1.52 X10 3/uL Normal 0.83-4.51 [facility] Comment on above: Performed By: #### L 100.0100, L500.2500, L501.2300, L501.5200 #### [facility] [address] [place], [address] Absolute Neut 6.8 X10 3/uL Normal 2.0-7.7 [facility] Comment on above: Performed By: #### L 100.0100, L500.2500, L501.2300, L501.5200 #### [facility] [address] [place], [address] Basophils/100 WBC (Bld) 0.3 % Normal 0-1 [facility] Comment on above: Performed By: #### L 100.0100, L500.2500, L501.2300, L501.5200 #### [facility] [address] [place], [address] Eosinophils/100 WBC (Bld) 1.1 % Normal 0-5 [facility] Comment on above: Performed By: #### L 100.0100, L500.2500, L501.2300, L501.5200 #### [facility] [address] [place], [address] Erythrocyte distribution width (RBC) [Ratio] 14.4 % Normal 11.6-14.6 [facility] Comment on above: Performed By: #### L 100.0100, L500.2500, L501.2300, L501.5200 #### [facility] [address] [place], [address] Hematocrit (Bld) [Volume fraction] 36.4 % Low 40-54 [facility] Comment on above: Performed By: #### L 100.0100, L500.2500, L501.2300, L501.5200 #### [facility] [address] [place], [address] Hemoglobin (Bld) [Mass/Vol] 11.5 g/dL Low 13.0-16.5 [facility] Comment on above: Performed By: #### L 100.0100, L500.2500, L501.2300, L501.5200 #### [facility] [address] [place], [address] IG% 0.400 Normal 0.0-0.9 [facility] Comment on above: Result Comment: IG% - Immature Granulocytes (promyelocytes, myelocytes and metamyelocytes) > 1% indicates that a LEFT SHIFT is Present. Performed By: #### L 100.0100, L500.2500, L501.2300, L501.5200 #### [facility] [address] [place], [address] Lymphocytes/100 WBC (Bld) 16.9 % Low 19-41 [facility] Comment on above: Performed By: #### L 100.0100, L500.2500, L501.2300, L501.5200 #### [facility] [address] [place], [address] MCH (RBC) [Entitic mass] 26.4 pg Low 27.0-32.0 [facility] Comment on above: Performed By: #### L 100.0100, L500.2500, L501.2300, L501.5200 #### [facility] [address] [place], [address] MCHC (RBC) [Mass/Vol] 31.6 g/dL Low 32-36 [facility] Comment on above: Performed By: #### L 100.0100, L500.2500, L501.2300, L501.5200 #### [facility] [address] [place], [address] MCV (RBC) [Entitic vol] 83.7 fL Normal 80-94 [facility] Comment on above: Performed By: #### L 100.0100, L500.2500, L501.2300, L501.5200 #### [facility] [address] [place], [address] Monocytes/100 WBC (Bld) 5.9 % Normal 0-10 [facility] Comment on above: Performed By: #### L 100.0100, L500.2500, L501.2300, L501.5200 #### [facility] [address] [place], [address] Neutrophils/100 WBC (Bld) 75.4 % High 47-70 [facility] Comment on above: Performed By: #### L 100.0100, L500.2500, L501.2300, L501.5200 #### [facility] [address] [place], [address] Nucleated RBC (Bld) [#/Vol] 0 10*3/uL Normal 0-5 [facility] Comment on above: Performed By: #### L 100.0100, L500.2500, L501.2300, L501.5200 #### [facility] [address] [place], [address] Platelet mean volume (Bld) [Entitic vol] 10.9 fL Normal 6.2-12.0 [facility] Comment on above: Performed By: #### L 100.0100, L500.2500, L501.2300, L501.5200 #### [facility] [address] [place], [address] Platelets (Bld) [#/Vol] 400 10*3/uL Normal 150-450 [facility] Comment on above: Performed By: #### L 100.0100, L500.2500, L501.2300, L501.5200 #### [facility] [address] [place], [address] RBC (Bld) [#/Vol] 4.35 10*6/uL Low 4.6-6.2 [facility] Comment on above: Performed By: #### L 100.0100, L500.2500, L501.2300, L501.5200 #### [facility] [address] [place], [address] RDW SD 44.1 fl High 35.1-43.9 [facility] Comment on above: Performed By: #### L 100.0100, L500.2500, L501.2300, L501.5200 #### [facility] [address] [place], [address] WBC (Bld) [#/Vol] 9.0 10*3/uL Normal 4.4-11.0 [facility] Comment on above: Performed By: #### L 100.0100, L500.2500, L501.2300, L501.5200 #### [facility] [address] [place], [address] Comprehensive Metabolic Prof ilon 05-11-2024 Albumin [Mass/Vol] 3.3 g/dL Normal 3.2-5.0 [facility] Comment on above: Performed By: #### L 100.0100, L500.2500, L501.2300, L501.5200 #### [facility] [address] [place], [address] Albumin/Globulin [Mass ratio] 0.9 {ratio} Normal 0.9-2.4 [facility] Comment on above: Performed By: #### L 100.0100, L500.2500, L501.2300, L501.5200 #### [facility] [address] [place], [address] ALK P 100 U/L Normal 45-117 [facility] Comment on above: Performed By: #### L 100.0100, L500.2500, L501.2300, L501.5200 #### [facility] [address] [place], [address] ALT [Catalytic activity/Vol] 19 U/L Normal 16-61 [facility] Comment on above: Performed By: #### L 100.0100, L500.2500, L501.2300, L501.5200 #### [facility] [address] [place], [address] AST [Catalytic activity/Vol] 5 U/L Low 15-37 [facility] Comment on above: Performed By: #### L 100.0100, L500.2500, L501.2300, L501.5200 #### [facility] [address] [place], [address] Bilirubin [Mass/Vol] 0.20 mg/dL Normal 0.20-1.00 [facility] Comment on above: Result Comment: For patients on eltrombopag therapy, use of Dimension Browns TBIL is not recommended. Performed By: #### L 100.0100, L500.2500, L501.2300, L501.5200 #### [facility] [address] [place], [address] BUN/CRE 9.6 RATIO Low 10-20 [facility] Comment on above: Performed By: #### L 100.0100, L500.2500, L501.2300, L501.5200 #### [facility] [address] [place], [address] CA,Total 9.7 mg/dL Normal 8.5-10.1 [facility] Comment on above: Performed By: #### L 100.0100, L500.2500, L501.2300, L501.5200 #### [facility] [address] [place], [address] Chloride [Moles/Vol] 105 mmol/L Normal 98-107 [facility] Comment on above: Performed By: #### L 100.0100, L500.2500, L501.2300, L501.5200 #### [facility] [address] [place], [address] CO2 [Moles/Vol] 28.0 mmol/L Normal 21.0-32.0 [facility] Comment on above: Performed By: #### L 100.0100, L500.2500, L501.2300, L501.5200 #### [facility] [address] [place], [address] Creatinine [Mass/Vol] 0.84 mg/dL Normal 0.70-1.30 [facility] Comment on above: Result Comment: The validity of the calculated GFR GFRAA in patients over 70 years has not been determined. Clinical correlation is essential. Performed By: #### L 100.0100, L500.2500, L501.2300, L501.5200 #### [facility] [address] [place], [address] EST GFR - AA 123 mL/min Normal >60 [facility] Comment on above: Result Comment: Afri can Thai GFR Calc Performed By: #### L 100.0100, L500.2500, L501.2300, L501.5200 #### [facility] [address] [place], [address] GAP 7 Normal 5-15 [facility] Comment on above: Performed By: #### L 100.0100, L500.2500, L501.2300, L501.5200 #### [facility] [address] [place], [address] GFR/1.73 sq M.predicted among non-blacks MDRD (S/P/Bld) [Vol rate/Area] 102 mL/min/{1.73_m2} Normal >60 [facility] Comment on above: Result Comment: Non- GFR Calc Performed By: #### L 100.0100, L500.2500, L501.2300, L501.5200 #### [facility] [address] [place], [address] Globulin (S) [Mass/Vol] 3.8 g/dL Normal 2.2-4.2 [facility] Comment on above: Performed By: #### L 100.0100, L500.2500, L501.2300, L501.5200 #### [facility] [address] [place], [address] Glucose [Mass/Vol] 104 mg/dL Normal 74-106 [facility] Comment on above: Result Comment: Fast ing Glucose result from 100 to 125 mg/dL suggests IMPAIRED HOMEOSTASIS per A.D.A. criteria. Performed By: #### L 100.0100, L500.2500, L501.2300, L501.5200 #### [facility] [address] [place], [address] Potassium [Moles/Vol] 3.7 mmol/L Normal 3.5-5.1 [facility] Comment on above: Performed By: #### L 100.0100, L500.2500, L501.2300, L501.5200 #### [facility] [address] [place], [address] Sodium [Moles/Vol] 140 mmol/L Normal 136-145 [facility] Comment on above: Performed By: #### L 100.0100, L500.2500, L501.2300, L501.5200 #### [facility] [address] [place], [address] T PROT 7.1 g/dL Normal 6.4-8.2 [facility] Comment on above: Performed By: #### L 100.0100, L500.2500, L501.2300, L501.5200 #### [facility] [address] [place], [address] Urea nitrogen [Mass/Vol] 8 mg/dL Normal 7-18 [facility] Comment on above: Performed By: #### L 100.0100, L500.2500, L501.2300, L501.5200 #### [facility] [address] [place], [address] Ferritinon 05-11-2024 Ferritin [Mass/Vol] 26 ng/mL Normal 26-388 [facility] Comment on above: Performed By: #### L 100.0100, L500.2500, L501.2300, L501.5200 #### [facility] [address] [place], [address] Iron+Iron Binding Capacityon 05-11-2024 Iron [Mass/Vol] 34 ug/dL Low 65-175 [facility] Comment on above: Performed By: #### L 100.0100, L500.2500, L501.2300, L501.5200 #### [facility] [address] [place], [address] IRON SATURATION 8.0 Low 15.0-55.0 [facility] Comment on above: Performed By: #### L 100.0100, L500.2500, L501.2300, L501.5200 #### [facility] [address] [place], [address] TIBC 425 ug/dL Normal 250-450 [facility] Comment on above: Performed By: #### L 100.0100, L500.2500, L501.2300, L501.5200 #### [facility] [address] [place], [address] Magnesiumon 05-11-2024 Magnesium [Mass/Vol] 2.0 mg/dL Normal 1.6-2.6 [facility] Comment on above: Performed By: #### L 100.0100, L500.2500, L501.2300, L501.5200 #### [facility] [address] [place], [address] Oncology Visit Reporton 04-15 Oncology Visit Report [facility] [address] [place] [address] OFFICE VISIT Date of Service: 05/11/24 0859 MR#: [id number] Acct: [id number] Name: ROSALVA WILLETT STAR Rep #: [id number] : 1970 From: Ashtyn Swain MD Age/Sex: 54/M [place] [facility] [place]: Signed HPI Subjective Date of Service 05/11/24 Chief Complaint Colon cancer History of Present Illness 54-year-old male presented in April 2024 with a few days long increasing abdominal pain. April 27, 2024 CT abdomen and pelvis: IMPRESSION: Colocolic intussusception. No obstruction. April 28, 2024 laparoscopic right hemicolectomy with ileocolic anastomosis. April 28, 2024 MICROSCOPIC DIAGNOSIS A. 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 See cancer summary in the comment section. B. Omentum: A piece of adipose tissue with congestion, hemorrhage, acute inflammation and fibrinous exudation. Negative for malignancy. C. Right colon staple line: Small intestine donut: No pathologic diagnosis. Colonic donut with serosal acute inflammation and fibrinous exudation. SJ.mr 05/03/2024 COMMENT A. COLON CANCER SUMMARY: Specimen - Right colon Procedure - Right hemicolectomy Tumor site - Ascending colon Tumor size - 6 x 4.5 x 3.5cm Macroscopic tumor perforation - Not identified Histologic type - Adenocarcinoma with extensive mucinous differentiation Histologic grade - Grade 2, moderately differentiated Microscopic tumor extension - Tumor invades through muscularis propria into pericolonic adipose tissue Margins: Margins are uninvolved by invasive carcinoma., high grade dysplasia, intramucosal carcinoma and adenoma. The tumor is 8cm away from the closest distal resection margin. Treatment effect - No known presurgical therapy Lymphvascular invasion - Not identified Perineural invasion - Not identified Tumor deposits - None identified Type of polyp in which invasive carcinoma arose - None identified Lymph nodes: Number of lymph nodes examined - 14 Number of lymph nodes involved - 1 The metastatic focus of tumor measures 0.4cm in greatest dimension. Extranodal extension is not identified Additional pathologic findings ??? Appendix with complete luminal obliteration. Colonic resection margin with serosal acute inflammation. Ancillary studies: IHC for microsatellite instability study by IHC ([id number]) will be reported separately. PATHOLOGIC STAGE: pT3p N1 pMx Right krupa colectomy: Invasive adenocarcinoma with mucinous differentiation. Result of Microsatellite Instability Study: Negative (no loss of mismatch protein; no microsatellite instability detected) Treatment summary and response: April 28 2024 laparoscopic right hemicolectomy PFSH Medical History Anemia Regional lymph node metastasis present Colon cancer Abdominal pain Intussusception Smoker Surgical History H/O hemicolectomy Family History (Updated 05/11/24 @ 09:03 by Gisselle Castro) Father Colon cancer, Onset Age: 70 Mother Diabetes Social History (Updated 05/11/24 @ 09:03 by Gisselle Castro) Smoking Status: Current every day smoker tobacco type: cigars alcohol intake: never substance use type: does not use ROS Constitutional Constitutional: Reports fatigue; Denies fever(s) or weight loss Eyes Eyes: Reports systems reviewed and no addt'l complaints, except as documented ENT HEENT: Reports systems reviewed and no addt'l complaints, except as documented; Denies mouth lesions Cardiovascular Cardiovascular: Reports systems reviewed and no addt'l complaints, except as documented; Denies chest pain with activity or edema Respiratory/Chest Respiratory/Chest: Reports systems reviewed and no addt'l complaints, except as documented; Denies cough or dyspnea Gastrointestinal Gastrointestinal: Reports systems reviewed and no addt'l complaints, except as documented; Denies abdominal pain, hematochezia, melena or nausea Genitourinary Genitourinary: Reports systems reviewed and no addt'l complaints, except as documented Musculoskeletal Musculoskeletal: Reports systems reviewed and no addt'l complaints, except as documented; Denies back pain Integumentary Integumentary: Reports systems reviewed and no addt'l complaints, except as documented; Denies new lesions Neurologic Neurologic: Reports systems reviewed and no addt'l complaints, except as documented; Denies focal weakness or paresthesias Psychiatric Psychiatric: Reports systems reviewed and no addt'l complaints, except as documented Endocrine Endocrinology: Reports systems reviewed and no addt'l complaints, except as documented Hematologic/Lymphatic Hematologic/Lymphatic: Reports systems reviewed and no addt'l complai (more content not included)... Normal [facility] Phosphoruson 05-11-2024 Phosphate [Mass/Vol] 3.8 mg/dL Normal 2.5-4.9 [facility] Comment on above: Performed By: #### L 100.0100, L500.2500, L501.2300, L501.5200 #### [facility] [address] [place], [address] Retic Panelon 05-11-2024 IM RET FRACTION 14.20 Normal 3.00-15.90 [facility] Comment on above: Performed By: #### L 100.0100, L500.2500, L501.2300, L501.5200 #### [facility] [address] [place], [address] RET-HE 27.2 pg Low 30-35 [facility] Comment on above: Performed By: #### L 100.0100, L500.2500, L501.2300, L501.5200 #### [facility] [address] [place], [address] Retic Count 1.62 High 0.5-1.5 [facility] Comment on above: Performed By: #### L 100.0100, L500.2500, L501.2300, L501.5200 #### [facility] [address] [place], [address] Vitamin B12on 05-11-2024 Cobalamin (Vitamin B12) [Mass/Vol] 344 pg/mL Normal 211-911 [facility] Comment on above: Performed By: #### L 100.0100, L500.2500, L501.2300, L501.5200 #### [facility] [address] [place], [address] Carcinoembryonic Antigenon 0 - CEA 8.5 ng/mL High 0.0-4.7 [facility] Comment on above: Result Comment: Nons mokers <3.9 Smokers <5.6 [facility] Electrochemiluminescence Immunoassay (ECLIA) Values obtained with different assay methods or kits cannot be used interchangeably. Results cannot be interpreted as absolute evidence of the presence or absence of malignant disease. Performed at: [address] [id number] Bunch Breaker: Alberto Burroughs PhD, Phone: [phone] Performed By: #### L 100.0100, L500.2500, L501.2300, L501.5200 #### [facility] [address] [place], [address] Surgery Visit Reporton 05-05 Surgery Visit Report [facility] [address] [place] [address] OFFICE VISIT Date of Service: 05/05/24 MR#: [id number] Acct: [id number] Name: ROSALVA WILLETT Rep #: [id number] : 1970 Provider: Dr. 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 Since hospital discharge they have been doing well. They report minimal postoperative pain and dad that they have just taken some [id number] Advil since discharge but nothing for the last several days. They have no wound concerns and confirm the drain site in the suprapubic position sealed as expected. They report tolerance of a soft diet. Concerning their bowel movements, they report that these have decreased somewhat in frequency but average between 3 and 5/day. Mr. Willett notes that he was somewhat worried when he only had 1 bowel movement yesterday but then had 2 additional bowel movements this morning. He confirms that the movements were soft and nonbloody.. Objective Details: Constitutional: No acute distress, appreciative Abdomen: Nondistended, well-approximated midline wound with skin erma no erythema (scabbing present in suprapubic port site and left lower quadrant port site remains well-approximated with skin erma well), no drainage, soft, nontender to palpation Coding Level of Care Code Global Post Op Diagnoses S/P right hemicolectomy Z90.49 Colon cancer C18.9 PFSH Medical History Colon cancer Abdominal pain Intussusception Smoker Surgical History (Updated 05/05/24 @ 17:[address] Ruddy Coffman MD) H/O hemicolectomy Social History Smoking Status: Current every day smoker tobacco type: cigars Assessment and Plan (No Qualifiers) Assessment and Plan (1) S/P right hemicolectomy: Status: Acute Comment: Patient presents for his first postoperative visit 1 week status post laparoscopic assisted right hemicolectomy with ileocolic anastomosis. He has done very well through his recovery and had an uneventful time since his discharge. He is well-healing on exam and experiencing regular bowel function. At this time I believe he can return to an unrestricted diet but I have encouraged him to maintain activity restrictions for a full 4 weeks postop. It is still too early to remove his skin erma so we will plan to bring him back in a week for this purpose. Lastly I discussed with patient the hypercoagulability associated with cancer diagnosis and recent surgery. Most guidelines would suggest 10 days postop with Lovenox, however, given the patient's cancer diagnosis was just made and he is now 7 days postop without complaints I do not see a strong indication to now initiate this therapy. Instead, I advised him to remain active with frequent ambulation. I have also advised him to not disregard any abnormal extremity swelling or shortness of breath. Mr. Willett acknowledges understanding. Plan: ??? Follow-up clinic visit in 1 week for staple removal ??? Patient approved for unrestricted diet ??? No lifting greater than 10 pounds for 4 weeks (2) Colon cancer: Status: Acute Comment: As above, patient underwent emergent right hemicolectomy for colocolonic intussusception with finding of a 6 cm ascending colon mass. Full cancer summary was given in the EMR, but patient is diagnosed with a 6 cm moderately differentiated invasive adenocarcinoma. Margins were widely clear at 8 cm with 1 of 14 lymph nodes positive for spread. Detailed review of the pathology report was conducted and I advised Mr. Willett that we should obtain a CEA level for baseline as well as obtain further staging imaging with CT chest. Lastly, we will plan to refer him to oncology to determine whether or not he will require adjuvant chemoradiation. Otherwise, he is advised that his diagnosis at the age of 54 makes a genetic predisposition likely and I took some time to highlight this implication for his family and their needs for colon cancer screening. Patient and his expressed understanding and appreciation for explanations of next steps. Plan: ??? CEA ??? CT chest with IV contrast ??? Referral to oncology 05/05/24 133 Date Ruddy Wan Signature: (more content not included)... Normal [facility] Basic Metabolic Profile (BMP )on 04-30-2024 BUN/CRE 13.2 RATIO Normal 10-20 [facility] Comment on above: Performed By: #### L 500.4050, L100.0100, L501.5200 #### [facility] [address] [place], [address] CA,Total 8.7 mg/dL Normal 8.5-10.1 [facility] Comment on above: Performed By: #### L 500.4050, L100.0100, L501.5200 #### [facility] [address] [place], [address] Chloride [Moles/Vol] 110 mmol/L High 98-107 [facility] Comment on above: Performed By: #### L 500.4050, L100.0100, L501.5200 #### [facility] [address] [place], [address] CO2 [Moles/Vol] 24.0 mmol/L Normal 21.0-32.0 [facility] Comment on above: Performed By: #### L 500.4050, L100.0100, L501.5200 #### [facility] [address] [place], [address] Creatinine [Mass/Vol] 0.76 mg/dL Normal 0.70-1.30 [facility] Comment on above: Result Comment: The validity of the calculated GFR GFRAA in patients over 70 years has not been determined. Clinical correlation is essential. Performed By: #### L 500.4050, L100.0100, L501.5200 #### [facility] [address] [place], [address] ECRCL 134.69 ml/min Normal [facility] Comment on above: Performed By: #### L 500.4050, L100.0100, L501.5200 #### [facility] [address] [place], [address] EST GFR - AA 138 mL/min Normal >60 [facility] Comment on above: Result Comment: Afri can Thai GFR Calc Performed By: #### L 500.4050, L100.0100, L501.5200 #### [facility] [address] [place], [address] GAP 5 Normal 5-15 [facility] Comment on above: Performed By: #### L 500.4050, L100.0100, L501.5200 #### [facility] [address] [place], [address] GFR/1.73 sq M.predicted among non-blacks MDRD (S/P/Bld) [Vol rate/Area] 114 mL/min/{1.73_m2} Normal >60 [facility] Comment on above: Result Comment: Non- GFR Calc Performed By: #### L 500.4050, L100.0100, L501.5200 #### [facility] [address] [place], [address] Glucose [Mass/Vol] 101 mg/dL Normal 74-106 [facility] Comment on above: Result Comment: Fast ing Glucose result from 100 to 125 mg/dL suggests IMPAIRED HOMEOSTASIS per A.D.A. criteria. Performed By: #### L 500.4050, L100.0100, L501.5200 #### [facility] [address] [place], [address] Potassium [Moles/Vol] 3.4 mmol/L Low 3.5-5.1 [facility] Comment on above: Performed By: #### L 500.4050, L100.0100, L501.5200 #### [facility] [address] [place], [address] Sodium [Moles/Vol] 140 mmol/L Normal 136-145 [facility] Comment on above: Performed By: #### L 500.4050, L100.0100, L501.5200 #### [facility] [address] [place], [address] Urea nitrogen [Mass/Vol] 10 mg/dL Normal 7-18 [facility] Comment on above: Performed By: #### L 500.4050, L100.0100, L501.5200 #### [facility] [address] [place], [address] CBC W/Diff, Automatedon 04-14 Absolute Lymph 0.97 X10 3/uL Normal 0.83-4.51 [facility] Comment on above: Performed By: #### L 500.4050, L100.0100, L501.5200 #### [facility] [address] [place], [address] Absolute Neut 6.2 X10 3/uL Normal 2.0-7.7 [facility] Comment on above: Performed By: #### L 500.4050, L100.0100, L501.5200 #### [facility] [address] [place], [address] Basophils/100 WBC (Bld) 0.5 % Normal 0-1 [facility] Comment on above: Performed By: #### L 500.4050, L100.0100, L501.5200 #### [facility] [address] [place], [address] Eosinophils/100 WBC (Bld) 1.4 % Normal 0-5 [facility] Comment on above: Performed By: #### L 500.4050, L100.0100, L501.5200 #### [facility] [address] [place], [address] Erythrocyte distribution width (RBC) [Ratio] 15.3 % High 11.6-14.6 [facility] Comment on above: Performed By: #### L 500.4050, L100.0100, L501.5200 #### [facility] [address] [place], [address] Hematocrit (Bld) [Volume fraction] 30.7 % Low 40-54 [facility] Comment on above: Performed By: #### L 500.4050, L100.0100, L501.5200 #### [facility] [address] [place], [address] Hemoglobin (Bld) [Mass/Vol] 9.7 g/dL Low 13.0-16.5 [facility] Comment on above: Performed By: #### L 500.4050, L100.0100, L501.5200 #### [facility] [address] [place], [address] IG% 0.600 Normal 0.0-0.9 [facility] Comment on above: Result Comment: IG% - Immature Granulocytes (promyelocytes, myelocytes and metamyelocytes) > 1% indicates that a LEFT SHIFT is Present. Performed By: #### L 500.4050, L100.0100, L501.5200 #### [facility] [address] [place], [address] Lymphocytes/100 WBC (Bld) 12.1 % Low 19-41 [facility] Comment on above: Performed By: #### L 500.4050, L100.0100, L501.5200 #### [facility] [address] [place], [address] MCH (RBC) [Entitic mass] 27.2 pg Normal 27.0-32.0 [facility] Comment on above: Performed By: #### L 500.4050, L100.0100, L501.5200 #### [facility] [address] [place], [address] MCHC (RBC) [Mass/Vol] 31.6 g/dL Low 32-36 [facility] Comment on above: Performed By: #### L 500.4050, L100.0100, L501.5200 #### [facility] [address] [place], [address] MCV (RBC) [Entitic vol] 86.0 fL Normal 80-94 [facility] Comment on above: Performed By: #### L 500.4050, L100.0100, L501.5200 #### [facility] [address] [place], [address] Monocytes/100 WBC (Bld) 8.0 % Normal 0-10 [facility] Comment on above: Performed By: #### L 500.4050, L100.0100, L501.5200 #### [facility] [address] [place], [address] Neutrophils/100 WBC (Bld) 77.4 % High 47-70 [facility] Comment on above: Performed By: #### L 500.4050, L100.0100, L501.5200 #### [facility] [address] [place], [address] Nucleated RBC (Bld) [#/Vol] 0 10*3/uL Normal 0-5 [facility] Comment on above: Performed By: #### L 500.4050, L100.0100, L501.5200 #### [facility] [address] [place], [address] Platelet mean volume (Bld) [Entitic vol] 11.5 fL Normal 6.2-12.0 [facility] Comment on above: Performed By: #### L 500.4050, L100.0100, L501.5200 #### [facility] [place] [facility] [address] [place], [address] Platelets (Bld) [#/Vol] 251 10*3/uL Normal 150-450 [facility] Comment on above: Performed By: #### L 500.4050, L100.0100, L501.5200 #### [facility] [address] [place], [address] RBC (Bld) [#/Vol] 3.57 10*6/uL Low 4.6-6.2 [facility] Comment on above: Performed By: #### L 500.4050, L100.0100, L501.5200 #### [facility] [address] [place], [address] RDW SD 47.8 fl High 35.1-43.9 [facility] Comment on above: Performed By: #### L 500.4050, L100.0100, L501.5200 #### [facility] [address] [place], [address] WBC (Bld) [#/Vol] 8.0 10*3/uL Normal 4.4-11.0 [facility] Comment on above: Performed By: #### L 500.4050, L100.0100, L501.5200 #### [facility] [address] [place], [address] Discharge Instructionon 04-14 Discharge Instruction [facility] Medical Records Department [address] [place] [address] Instructions for Home/Discharge Instructions 04/30/24 1636 MR#: [id number] Acct: [id number] Name: ROSALVA WILLETT Rep #: [id number] : 1970 54 From: Ruddy Coffman MD PCP: Dr. Demetrius Phelps, DO Status:ADM IN Discharge Instructions Diet Discharge Diet: Soft diet DC O2, CPAP, BIPAP needs Home O2 Discharge instructions: No Dressing / Incision May shower in (days): 2 Ice area for (Minutes): 20 Lifting Restrictions: No lifting greater than 10 pounds for 4 weeks after surgery Dressing / Incision Call your doctor if your incision/area has: Continuous Slow Oozing, Sudden Increased Bleeding, Increased Pain/ Swelling, Increased Redness, Foul Smelling Discharge and Swelling at the incision site Call your doctor if you observe: Fever of 101 or Higher, Inability to have a bowel movement, Prolonged hiccupping and Uncontrolled pain Additional Dressing/Incision Instructions:: Please change dressing over drain site as it becomes saturated but it should seal after 48 hours Follow Up Care Please Follow Up With: Ruddy Coffman MD When: 1 to 2 weeks postop Test Results: Test results from this visit will be discussed in further detail at your follow-up appointment, if applicable. Discharge Plan Admission Admit Date/Time: 04/28/24 02:48 Primary Reason for Your Visit: Colonic intussusception Attending Provider: Ruddy Coffman Primary Care Provider: Demetrius Phelps Instructions Additional Instructions / Restrictions: Please make use of abdominal binder when ambulating about Discharge Orders/Prescriptions Prescriptions: New oxycodone 5 mg Tablet 5 mg PO Q6H PRN PRN (Reason: Pain Score 6-10) 5 Days Qty: 14 0RF Referrals / Follow Up: Demetrius Phelps DO [Primary Care Provider] - Disposition Disposition (needs filled in before D/C Order can be placed): Home, Self Care 04/30/24 1641 Ruddy Coffman MD CC: Dr. Demetrius Phelps DO Signed Normal [facility] Magnesiumon 04-30-2024 Magnesium [Mass/Vol] 2.1 mg/dL Normal 1.6-2.6 [facility] Comment on above: Performed By: #### L 500.4050, L100.0100, L501.5200 #### [facility] [address] [place], [address] Phosphoruson 04-30-2024 Phosphate [Mass/Vol] 1.8 mg/dL Low 2.5-4.9 [facility] Comment on above: Performed By: #### L 500.4050, L100.0100, L501.5200 #### [facility] [address] [place], [address] Basic Metabolic Profile (BMP )on 04-29-2024 BUN/CRE 13.5 RATIO Normal 10-20 [facility] Comment on above: Performed By: #### L 100.0100, L500.2500, L501.2300, L501.5200 #### [facility] [address] [place], [address] CA,Total 8.4 mg/dL Low 8.5-10.1 [facility] Comment on above: Performed By: #### L 100.0100, L500.2500, L501.2300, L501.5200 #### [facility] [address] [place], [address] Chloride [Moles/Vol] 109 mmol/L High 98-107 [facility] Comment on above: Performed By: #### L 100.0100, L500.2500, L501.2300, L501.5200 #### [facility] [address] [place], [address] CO2 [Moles/Vol] 23.0 mmol/L Normal 21.0-32.0 [facility] Comment on above: Performed By: #### L 100.0100, L500.2500, L501.2300, L501.5200 #### [facility] [address] [place], [address] Creatinine [Mass/Vol] 0.81 mg/dL Normal 0.70-1.30 [facility] Comment on above: Result Comment: The validity of the calculated GFR GFRAA in patients over 70 years has not been determined. Clinical correlation is essential. Performed By: #### L 100.0100, L500.2500, L501.2300, L501.5200 #### [facility] [address] [place], [address] ECRCL 126.38 ml/min Normal [facility] Comment on above: Performed By: #### L 100.0100, L500.2500, L501.2300, L501.5200 #### [facility] [address] [place], [address] EST GFR - AA 127 mL/min Normal >60 [facility] Comment on above: Result Comment: Afri can Thai GFR Calc Performed By: #### L 100.0100, L500.2500, L501.2300, L501.5200 #### [facility] [address] [place], [address] GAP 7 Normal 5-15 [facility] Comment on above: Performed By: #### L 100.0100, L500.2500, L501.2300, L501.5200 #### [facility] [address] [place], [address] GFR/1.73 sq M.predicted among non-blacks MDRD (S/P/Bld) [Vol rate/Area] 105 mL/min/{1.73_m2} Normal >60 [facility] Comment on above: Result Comment: Non- GFR Calc Performed By: #### L 100.0100, L500.2500, L501.2300, L501.5200 #### [facility] [address] [place], [address] Glucose [Mass/Vol] 113 mg/dL High 74-106 [facility] Comment on above: Result Comment: Fast ing Glucose result from 100 to 125 mg/dL suggests IMPAIRED HOMEOSTASIS per A.D.A. criteria. Performed By: #### L 100.0100, L500.2500, L501.2300, L501.5200 #### [facility] [address] [place], [address] Potassium [Moles/Vol] 3.4 mmol/L Low 3.5-5.1 [facility] Comment on above: Performed By: #### L 100.0100, L500.2500, L501.2300, L501.5200 #### [facility] [address] [place], [address] Sodium [Moles/Vol] 139 mmol/L Normal 136-145 [facility] Comment on above: Performed By: #### L 100.0100, L500.2500, L501.2300, L501.5200 #### [facility] [address] [place], [address] Urea nitrogen [Mass/Vol] 11 mg/dL Normal 7-18 [facility] Comment on above: Performed By: #### L 100.0100, L500.2500, L501.2300, L501.5200 #### [facility] [address] [place], [address] CBC W/Diff, Automatedon 04-14 Absolute Lymph 0.82 X10 3/uL Low 0.83-4.51 [facility] Comment on above: Performed By: #### L 100.0100, L500.2500, L501.2300, L501.5200 #### [facility] [address] [place], [address] Absolute Neut 8.4 X10 3/uL High 2.0-7.7 [facility] Comment on above: Performed By: #### L 100.0100, L500.2500, L501.2300, L501.5200 #### [facility] [address] [place], [address] Basophils/100 WBC (Bld) 0.3 % Normal 0-1 [facility] Comment on above: Performed By: #### L 100.0100, L500.2500, L501.2300, L501.5200 #### [facility] [address] [place], [address] Eosinophils/100 WBC (Bld) 0.2 % Normal 0-5 [facility] Comment on above: Performed By: #### L 100.0100, L500.2500, L501.2300, L501.5200 #### [facility] [address] [place], [address] Erythrocyte distribution width (RBC) [Ratio] 15.4 % High 11.6-14.6 [facility] Comment on above: Performed By: #### L 100.0100, L500.2500, L501.2300, L501.5200 #### [facility] [address] [place], [address] Hematocrit (Bld) [Volume fraction] 32.9 % Low 40-54 [facility] Comment on above: Performed By: #### L 100.0100, L500.2500, L501.2300, L501.5200 #### [facility] [address] [place], [address] Hemoglobin (Bld) [Mass/Vol] 10.4 g/dL Low 13.0-16.5 [facility] Comment on above: Performed By: #### L 100.0100, L500.2500, L501.2300, L501.5200 #### [facility] [address] [place], [place], [address] IG% 0.500 Normal 0.0-0.9 [facility] Comment on above: Result Comment: IG% - Immature Granulocytes (promyelocytes, myelocytes and metamyelocytes) > 1% indicates that a LEFT SHIFT is Present. Performed By: #### L 100.0100, L500.2500, L501.2300, L501.5200 #### [facility] [address] [place], [address] Lymphocytes/100 WBC (Bld) 8.0 % Low 19-41 [facility] Comment on above: Performed By: #### L 100.0100, L500.2500, L501.2300, L501.5200 #### [facility] [address] [place], [address] MCH (RBC) [Entitic mass] 26.7 pg Low 27.0-32.0 [facility] Comment on above: Performed By: #### L 100.0100, L500.2500, L501.2300, L501.5200 #### [facility] [address] [place], [address] MCHC (RBC) [Mass/Vol] 31.6 g/dL Low 32-36 [facility] Comment on above: Performed By: #### L 100.0100, L500.2500, L501.2300, L501.5200 #### [facility] [address] [place], [address] MCV (RBC) [Entitic vol] 84.4 fL Normal 80-94 [facility] Comment on above: Performed By: #### L 100.0100, L500.2500, L501.2300, L501.5200 #### [facility] [address] [place], [address] Monocytes/100 WBC (Bld) 8.5 % Normal 0-10 [facility] Comment on above: Performed By: #### L 100.0100, L500.2500, L501.2300, L501.5200 #### [facility] [address] [place], [address] Neutrophils/100 WBC (Bld) 82.5 % High 47-70 [facility] Comment on above: Performed By: #### L 100.0100, L500.2500, L501.2300, L501.5200 #### [facility] [address] [place], [address] Nucleated RBC (Bld) [#/Vol] 0 10*3/uL Normal 0-5 [facility] Comment on above: Performed By: #### L 100.0100, L500.2500, L501.2300, L501.5200 #### [facility] [address] [place], [address] Platelet mean volume (Bld) [Entitic vol] 11.6 fL Normal 6.2-12.0 [facility] Comment on above: Performed By: #### L 100.0100, L500.2500, L501.2300, L501.5200 #### [facility] [address] [place], [address] Platelets (Bld) [#/Vol] 263 10*3/uL Normal 150-450 [facility] Comment on above: Performed By: #### L 100.0100, L500.2500, L501.2300, L501.5200 #### [facility] [address] [place], [address] RBC (Bld) [#/Vol] 3.90 10*6/uL Low 4.6-6.2 [facility] Comment on above: Performed By: #### L 100.0100, L500.2500, L501.2300, L501.5200 #### [facility] [address] [place], [address] RDW SD 47.0 fl High 35.1-43.9 [facility] Comment on above: Performed By: #### L 100.0100, L500.2500, L501.2300, L501.5200 #### [facility] [address] [place], [address] WBC (Bld) [#/Vol] 10.2 10*3/uL Normal 4.4-11.0 [facility] Comment on above: Performed By: #### L 100.0100, L500.2500, L501.2300, L501.5200 #### [facility] [address] [place], [address] Magnesiumon 04-29-2024 Magnesium [Mass/Vol] 2.0 mg/dL Normal 1.6-2.6 [facility] Comment on above: Performed By: #### L 100.0100, L500.2500, L501.2300, L501.5200 #### [facility] [address] [place], [address] Phosphoruson 04-29-2024 Phosphate [Mass/Vol] 1.6 mg/dL Low 2.5-4.9 [facility] Comment on above: Performed By: #### L 100.0100, L500.2500, L501.2300, L501.5200 #### [facility] [address] [place], [address] Basic Metabolic Profile (BMP )on 04-28-2024 BUN/CRE 9.1 RATIO Low 10-20 [facility] Comment on above: Performed By: #### L 100.0100, L500.2500, L501.2300, L501.5200 #### [facility] [address] [place], [address] CA,Total 8.4 mg/dL Low 8.5-10.1 [facility] Comment on above: Performed By: #### L 100.0100, L500.2500, L501.2300, L501.5200 #### [facility] [address] [place], [address] Chloride [Moles/Vol] 109 mmol/L High 98-107 [facility] Comment on above: Performed By: #### L 100.0100, L500.2500, L501.2300, L501.5200 #### [facility] [address] [place], [address] CO2 [Moles/Vol] 26.0 mmol/L Normal 21.0-32.0 [facility] Comment on above: Performed By: #### L 100.0100, L500.2500, L501.2300, L501.5200 #### [facility] [address] [place], [address] Creatinine [Mass/Vol] 0.77 mg/dL Normal 0.70-1.30 [facility] Comment on above: Result Comment: The validity of the calculated GFR GFRAA in patients over 70 years has not been determined. Clinical correlation is essential. Performed By: #### L 100.0100, L500.2500, L501.2300, L501.5200 #### [facility] [address] [place], [address] ECRCL 132.94 ml/min Normal [facility] Comment on above: Performed By: #### L 100.0100, L500.2500, L501.2300, L501.5200 #### [facility] [address] [place], [address] EST GFR - AA 135 mL/min Normal >60 [facility] Comment on above: Result Comment: Afri can Thai GFR Calc Performed By: #### L 100.0100, L500.2500, L501.2300, L501.5200 #### [facility] [address] [place], [address] GAP 4 Low 5-15 [facility] Comment on above: Performed By: #### L 100.0100, L500.2500, L501.2300, L501.5200 #### [facility] [address] [place], [address] GFR/1.73 sq M.predicted among non-blacks MDRD (S/P/Bld) [Vol rate/Area] 112 mL/min/{1.73_m2} Normal >60 [facility] Comment on above: Result Comment: Non- GFR Calc Performed By: #### L 100.0100, L500.2500, L501.2300, L501.5200 #### [facility] [address] [place], [address] Glucose [Mass/Vol] 183 mg/dL High 74-106 [facility] Comment on above: Result Comment: Fast ing Glucose result greater than or equal to 126 mg/dL suggests DIABETES MELLITUS per A.D.A. criteria. Performed By: #### L 100.0100, L500.2500, L501.2300, L501.5200 #### [facility] [address] [place], [address] Potassium [Moles/Vol] 3.8 mmol/L Normal 3.5-5.1 [facility] Comment on above: Performed By: #### L 100.0100, L500.2500, L501.2300, L501.5200 #### [facility] [address] [place], [address] Sodium [Moles/Vol] 139 mmol/L Normal 136-145 [facility] Comment on above: Performed By: #### L 100.0100, L500.2500, L501.2300, L501.5200 #### [facility] [address] [place], [address] Urea nitrogen [Mass/Vol] 7 mg/dL Normal 7-18 [facility] Comment on above: Performed By: #### L 100.0100, L500.2500, L501.2300, L501.5200 #### [facility] [address] [place], [address] CBC W/Diff, Automatedon 04-14 Absolute Lymph 0.55 X10 3/uL Low 0.83-4.51 [facility] Comment on above: Performed By: #### L 100.0100, L500.2500, L501.2300, L501.5200 #### [facility] [address] [place], [address] Absolute Neut 9.7 X10 3/uL High 2.0-7.7 [facility] Comment on above: Performed By: #### L 100.0100, L500.2500, L501.2300, L501.5200 #### [facility] [address] [place], [address] Basophils/100 WBC (Bld) 0.3 % Normal 0-1 [facility] Comment on above: Performed By: #### L 100.0100, L500.2500, L501.2300, L501.5200 #### [facility] [address] [place], [address] Eosinophils/100 WBC (Bld) 0.0 % Normal 0-5 [facility] Comment on above: Performed By: #### L 100.0100, L500.2500, L501.2300, L501.5200 #### [facility] [address] [place], [address] Erythrocyte distribution width (RBC) [Ratio] 14.8 % High 11.6-14.6 [facility] Comment on above: Performed By: #### L 100.0100, L500.2500, L501.2300, L501.5200 #### [facility] [address] [place], [address] Hematocrit (Bld) [Volume fraction] 33.5 % Low 40-54 [facility] Comment on above: Performed By: #### L 100.0100, L500.2500, L501.2300, L501.5200 #### [facility] [address] [place], [address] Hemoglobin (Bld) [Mass/Vol] 10.8 g/dL Low 13.0-16.5 [facility] Comment on above: Performed By: #### L 100.0100, L500.2500, L501.2300, L501.5200 #### [facility] [address] [place], [address] IG% 0.400 Normal 0.0-0.9 [facility] Comment on above: Result Comment: IG% - Immature Granulocytes (promyelocytes, myelocytes and metamyelocytes) > 1% indicates that a LEFT SHIFT is Present. Performed By: #### L 100.0100, L500.2500, L501.2300, L501.5200 #### [facility] [address] [place], [address] Lymphocytes/100 WBC (Bld) 4.9 % Low 19-41 [facility] Comment on above: Performed By: #### L 100.0100, L500.2500, L501.2300, L501.5200 #### [facility] [address] [place], [address] MCH (RBC) [Entitic mass] 27.2 pg Normal 27.0-32.0 [facility] Comment on above: Performed By: #### L 100.0100, L500.2500, L501.2300, L501.5200 #### [facility] [address] [place], [address] MCHC (RBC) [Mass/Vol] 32.2 g/dL Normal 32-36 [facility] Comment on above: Performed By: #### L 100.0100, L500.2500, L501.2300, L501.5200 #### [facility] [address] [place], [address] MCV (RBC) [Entitic vol] 84.4 fL Normal 80-94 [facility] Comment on above: Performed By: #### L 100.0100, L500.2500, L501.2300, L501.5200 #### [facility] [address] [place], [address] Monocytes/100 WBC (Bld) 7.1 % Normal 0-10 [facility] Comment on above: Performed By: #### L 100.0100, L500.2500, L501.2300, L501.5200 #### [facility] [address] [place], [address] Neutrophils/100 WBC (Bld) 87.3 % High 47-70 [facility] Comment on above: Performed By: #### L 100.0100, L500.2500, L501.2300, L501.5200 #### [facility] [address] [place], [address] Nucleated RBC (Bld) [#/Vol] 0 10*3/uL Normal 0-5 [facility] Comment on above: Performed By: #### L 100.0100, L500.2500, L501.2300, L501.5200 #### [facility] [address] [place], [address] Platelet mean volume (Bld) [Entitic vol] 11.3 fL Normal 6.2-12.0 [facility] Comment on above: Performed By: #### L 100.0100, L500.2500, L501.2300, L501.5200 #### [facility] [address] [place], [address] Platelets (Bld) [#/Vol] 290 10*3/uL Normal 150-450 [facility] Comment on above: Performed By: #### L 100.0100, L500.2500, L501.2300, L501.5200 #### [facility] [address] [place], [address] RBC (Bld) [#/Vol] 3.97 10*6/uL Low 4.6-6.2 [facility] Comment on above: Performed By: #### L 100.0100, L500.2500, L501.2300, L501.5200 #### [facility] [address] [place], [address] RDW SD 45.5 fl High 35.1-43.9 [facility] Comment on above: Performed By: #### L 100.0100, L500.2500, L501.2300, L501.5200 #### [facility] [address] [place], [address] WBC (Bld) [#/Vol] 11.1 10*3/uL High 4.4-11.0 [facility] Comment on above: Performed By: #### L 100.0100, L500.2500, L501.2300, L501.5200 #### [facility] [address] [place], [address] MR/POSTOP.ANEon 04-28-2024 MR/POSTOP.ANE [facility] Medical Records Department [address] [place] [address] Anesthesia Postop Eval I 04/28/24320 MR#: [id number] Acct: [id number] Name: ROSALVA WILLETT Rep #: [id number] : 1970 54 From: Ti Sanders MD PCP: Dr. Demetrius Phelps, DO Status:ADM IN Y Race: C Location: [place] [id number] Anesthesia: Postop Eval I Current Vital Signs Temperature: 97.7 F Pulse Rate: 77 Blood Pressure: 115/82 Respiratory Rate: 16 Pulse Ox: 99 Oxygen Delivery Method: Simple Mask Oxygen Flow Rate (L/min): 8 Assessment Airway patent: Yes Spontaneous unlabored respirations: Yes Mental status: Asleep nausea: No Vomiting: No Anesthesia Complication: No Fluid Hydration Crystalloid volume administer (ml): 1,600 Total IV fluid infused: 1,600 Progress Note Anesthesia document: Postop Eval 1 completed: Yes 04/28/24321 Date Ti Sanders MD Cosigner Signature: Date CC: Signed Normal [facility] MR/ZEQUYIYO2ai 04-28-2024 MR/POSTOPAN2 [facility] Medical Records Department [address] [place] [address] Anesthesia Postop Eval II 04/28/24 0330 MR#: [id number] Acct: [id number] Name: ROSALVA WILLETT Rep #: [id number] : 1970 54 From: Ti Sanders MD PCP: Dr. Demetrius Phelps, DO Status:ADM IN Y Race: C Location: [place] [address] Anesthesia Postop Eval I Sum Postop Eval Completion status Anesthesia document: Postop Eval 1 completed: Yes Anesthesia Postop Eval I Summary Anesthesia Postop Eval I Summary: Anesthesia Postop Eval I: Assessment Summary Airway patent Yes 04/28/24 03:22 Spontaneous unlabored Yes 04/28/24 03:22 respirations Mental status Asleep 04/28/24 03:22 nausea No 04/28/24 03:22 Vomiting No 04/28/24 03:22 Anesthesia Postop Eval I: Fluid Summary Crystalloid volume administer 1,600 04/28/24 03:22 (ml) Colloids volume administered ( ml) Blood Product volume administered (ml) Total IV fluid infused 1,600 04/28/24 03:22 Anesthesia Postop Eval I: Summary Notes Anesthesia Complication No 04/28/24 03:22 Anesthesia Complication Comment: Post-operative progress note Anesthesia: Postop Eval II Evaluation Mental status: Asleep (Arousable) Pain Level: 0 nausea: No Vomiting: No Progress Note Post-operative progress note: 3 l/m nasal canula Complications Anesthesia Complication: No 04/28/24330 Date Ti Sanders MD Cosigner Signature: Date CC: Signed Normal [facility] Magnesiumon 04-28-2024 Magnesium [Mass/Vol] 2.1 mg/dL Normal 1.6-2.6 [facility] Comment on above: Performed By: #### L 100.0100, L500.2500, L501.2300, L501.5200 #### [facility] [address] [place], [address] Operative Reporton 5 Operative Report [facility] Medical Records Department [address] [place] [address] Operative Report 04/28/24 0254 MR#: [id number] Acct: [id number] Name: ROSALVA WILLETT STAR Rep #: [id number] : 1970 54 From: Ruddy Coffman MD PCP: Dr. Demetrius Phelps, DO Status:ADM IN Location: [place] [address] Operative Report (Standard) Operative Information Date of Procedure: 04/28/24 Pre-Operative Diagnosis: Colocolonic intussusception Post-Operative Diagnosis: Same Surgery/Procedure Performed: Laparoscopic right hemicolectomy with ileocolic anastomosis biological engineer: Yes Sueding And Buffing Machine Operator: [place] Tasks completed by cardiovascular physician assistant: Opening closing, Trocar and Retracting Type of Anesthesia: General/Supplemental RN Documented Start/Stop Times: Operation Date: 04/27/24 22:05 Case Time Anesthesia Start 04/27/24 21:33 Into Room 04/27/24 21:33 Procedure Start 04/27/24 22:09 Procedure End 04/28/24 02:51 Anesthesia End 04/28/24 03:12 Out of Room 04/28/24 03:12 Into Recovery 04/28/24 03:13 Out of Recovery 04/28/24 03:37 Procedure Start Time: 22:09 Procedure Stop Time: 02:51 Select all DRAINS/GRAFTS/IMPLANTS that apply: Drains Drain details: 15 Ug[place] round Cresencio drain Estimated Blood Loss: 100 Specimen collected: Yes Description of specimen(s) removed: 1. Right colon 2. Staple line 3. Omental biopsy Description of surgery: After appropriate identification in the preoperative holding area the patient was brought to the operating room where he was positioned supine in the operating room table. There he underwent induction of general anesthesia. He was administered preoperative antibiotics by emergency medicine. A Muñiz catheter was then placed for accurate ins and outs monitoring. Anesthesia placed a orogastric tube for gastric decompression. A formal timeout was conducted to confirm patient and procedure and the procedure was begun with a Trores entry in the supraumbilical position and placement of a 12 mm balloon trocar. Pneumoperitoneum was established at 15 mmHg and an inspection of the peritoneum was made. There was no evidence of inadvertent injury to the viscera below from our entry. Inspection of the liver (only the left lobe of the liver was immediately visible given shrouding from the omentum of the right lobe) did not reveal any mass lesions that could be concerning for metastatic deposits. I proceeded with placement of additional ports and placed 5 mm trocars in the suprapubic and left lower quadrant positions. Before proceeding with this port placement I performed a bilateral TAP block using a solution of Exparel, bupivacaine, and saline to instill 80 mL in evenly measured aliquots under laparoscopic direction. I then placed a final 5 mm port in the epigastric region approximately 10 cm cephalad to our Torres entry. With the [address] as described, the patient was placed with Trendelenburg positioning and I began to mobilize the colon in a [id number] fashion by opening the peritoneal reflection along the right paracolic gutter using the laparoscopic LigaSure device. In doing so we entered the avascular plane between the colon and the retroperitoneum atop Gerota's fascia inferiorly. I continued this mobilization until we reached the liver. More inferiorly I also performed some limited mobilization of the terminal ileum where there were a few adhesions to the pelvic sidewall with the mesoappendix. Patient was then positioned in reverse Trendelenburg and the hepatic flexure was mobilized with the use of the laparoscopic ligature device between the colon and the overlying omentum. I then checked overall mobility of the right colon and found it appeared to reach to our supraumbilical port site. On reaching this observation, I made the decision to extracorporealize the right colon via a limited midline incision. A medium size Gerardo wound protector was placed and our specimen was delivered through this opening. However, our mobility proved somewhat more limited than I initially anticipated so I extended the incision approximately 4 cm further superiorly and placed the large Gerardo wound protector. I then proceeded to develop the initial dissection with some additional blunt dissection of the colon off the retroperitoneum. Next I determined our proximal and distal transection points. A 75 mm JACOB stapler was used to make these transections of the ileum and transverse colon, respectively. I then set about dividing patient's small bowel mesentery and mesocolon with a laparoscopic LigaSure taking care to try to maintain hemostasis but stay low on the mesentery for adequate lymph node harvest. I found numerous adhesions between the adjacent mesocolons of the ascending and transverse colons. The source of these adhesions was somewhat unclear. I did identify the sweep of the duodenum as I b (more content not included)... Normal [facility] Phosphoruson 04-28-2024 Phosphate [Mass/Vol] 1.8 mg/dL Low 2.5-4.9 [facility] Comment on above: Performed By: #### L 100.0100, L500.2500, L501.2300, L501.5200 #### [facility] [address] [facility] [place], [address] Abdomen/Pelvis W IV Cont ONL Yon 04-27-2024 Abdomen/Pelvis W IV Cont ONLY [facility] Services [address] [place] [address] Abdomen/Pelvis W IV Cont ONLY MR#: [id number] Acct: [id number] Name: ROSALVA WILLETT Rep #: [id number] : 1970 M 54 From: Dipak Stewart MD PCP: Dr. Demetrius Phelps, Status: REG ER Study: Abdomen/Pelvis W IV Cont ONLY Date of Exam: Exam# [id number] Ordering Dr: Gregoria Treviño DO ADDENDUM by Dr. Dipak Stewart MD on 04/27/24 at 1907 [id number] STUDY: CT ABDOMEN AND PELVIS WITH CONTRAST REASON FOR EXAM: Male, 54 years old. Abdominal pain RADIATION DOSAGE (If Supplied By Facility): CTDIvol = ( 14.56 ) mGy, DLP = ( 1305.55 ) mGycm TECHNIQUE: Transaxial images were obtained from the dome of the diaphragm to the symphysis pubis without oral contrast. IV 75mL Isovue-370 was administered. Sagittal and coronal images were reconstructed. Individualized dose optimization techniques were used for this CT. COMPARISON: None. FINDINGS: The visualized lung bases are unremarkable. The visualized portions of the heart are within normal limits. Normal liver. The gallbladder is contracted. Normal spleen. Normal pancreas. Normal bilateral adrenal glands. Normal right kidney. Normal left kidney. Normal visualized stomach. Normal small intestine. There is colocolic intussusception in the right upper quadrant of the abdomen. The appendix is visualized and appears normal. Normal abdominal aorta. Normal inferior vena cava. Normal retroperitoneum. Normal urinary bladder. There is no free fluid in the abdomen or pelvis. Normal abdominal wall. There is degenerative change of the spine and hips. 04/27/241906 Date cc: Dr. Demetrius Phelps DO; Dr. Gregoria Treviño DO * Signed ADDENDUM by Dr. Dipak Stewart MD on 04/27/[address]/Abdomen/Pelvis W IV Cont ONLY IMPRESSION: Colocolic intussusception. No obstruction. N.B. : The above Results were Read Back by Dipak Stewart MD to Gregoria Treviño DO, and understanding confirmed on 04/27/2024 19:11:47 (ET). Electronically Signed: Dipak Stewart MD at 19:07 EST , 04/27/241917 Date cc: Dr. Demetrius Phelps DO; Dr. Gregoria Treviño DO * Signed We are attempting to reach an attending provider to discuss findings. An addendum with communication details will be sent when the communication is complete. [id number] STUDY: CT ABDOMEN AND PELVIS WITH CONTRAST REASON FOR EXAM: Male, 54 years old. Abdominal pain RADIATION DOSAGE (If Supplied By Facility): CTDIvol = ( 14.56 ) mGy, DLP = ( 1305.55 ) mGycm TECHNIQUE: Transaxial images were obtained from the dome of the diaphragm to the symphysis pubis without oral contrast. IV 75mL Isovue-370 was administered. Sagittal and coronal images were reconstructed. Individualized dose optimization techniques were used for this CT. COMPARISON: None. FINDINGS: The visualized lung bases are unremarkable. The visualized portions of the heart are within normal limits. Normal liver. The gallbladder is contracted. Normal spleen. Normal pancreas. Normal bilateral adrenal glands. Normal right kidney. Normal left kidney. Normal visualized stomach. Normal small intestine. There is colocolic intussusception in the right upper quadrant of the abdomen. The appendix is visualized and appears normal. Normal abdominal aorta. Normal inferior vena cava. Normal retroperitoneum. Normal urinary bladder. There is no free fluid in the abdomen or pelvis. Normal abdominal wall. There is degenerative change of the spine and hips. CT/Abdomen/Pelvis W IV Cont ONLY IMPRESSION: Colocolic intussusception. No obstruction. Electronically Signed: Dipak Stewart MD at 19:07 EST , CC: Dr. Demetrius Phelps DO; Dr. Gregoria Treviño DO Psychiatric Technician: Signed Normal [facility] CBC W/Diff, Automatedon - Absolute Lymph 1.17 X10 3/uL Normal 0.83-4.51 [facility] Comment on above: Performed By: #### L 100.0100, L500.2500, L501.2300, L501.5200 #### [facility] [address] [place], [address] Absolute Neut 5.9 X10 3/uL Normal 2.0-7.7 [facility] Comment on above: Performed By: #### L 100.0100, L500.2500, L501.2300, L501.5200 #### [facility] [address] [place], [address] Basophils/100 WBC (Bld) 0.6 % Normal 0-1 [facility] Comment on above: Performed By: #### L 100.0100, L500.2500, L501.2300, L501.5200 #### [facility] [address] [place], [address] Eosinophils/100 WBC (Bld) 0.9 % Normal 0-5 [facility] Comment on above: Performed By: #### L 100.0100, L500.2500, L501.2300, L501.5200 #### [facility] [address] [place], [address] Erythrocyte distribution width (RBC) [Ratio] 14.6 % Normal 11.6-14.6 [facility] Comment on above: Performed By: #### L 100.0100, L500.2500, L501.2300, L501.5200 #### [facility] [address] [place], [address] Hematocrit (Bld) [Volume fraction] 35.0 % Low 40-54 [facility] Comment on above: Performed By: #### L 100.0100, L500.2500, L501.2300, L501.5200 #### [facility] [address] [place], [address] Hemoglobin (Bld) [Mass/Vol] 11.2 g/dL Low 13.0-16.5 [facility] Comment on above: Performed By: #### L 100.0100, L500.2500, L501.2300, L501.5200 #### [facility] [address] [place], [address] IG% 0.400 Normal 0.0-0.9 [facility] Comment on above: Result Comment: IG% - Immature Granulocytes (promyelocytes, myelocytes and metamyelocytes) > 1% indicates that a LEFT SHIFT is Present. Performed By: #### L 100.0100, L500.2500, L501.2300, L501.5200 #### [facility] [address] [place], [address] Lymphocytes/100 WBC (Bld) 14.8 % Low 19-41 [facility] Comment on above: Performed By: #### L 100.0100, L500.2500, L501.2300, L501.5200 #### [facility] [address] [place], [address] MCH (RBC) [Entitic mass] 26.8 pg Low 27.0-32.0 [facility] Comment on above: Performed By: #### L 100.0100, L500.2500, L501.2300, L501.5200 #### [facility] [address] [place], [address] MCHC (RBC) [Mass/Vol] 32.0 g/dL Normal 32-36 [facility] Comment on above: Performed By: #### L 100.0100, L500.2500, L501.2300, L501.5200 #### [facility] [address] [place], [address] MCV (RBC) [Entitic vol] 83.7 fL Normal 80-94 [facility] Comment on above: Performed By: #### L 100.0100, L500.2500, L501.2300, L501.5200 #### [facility] [address] [place], [address] Monocytes/100 WBC (Bld) 9.6 % Normal 0-10 [facility] Comment on above: Performed By: #### L 100.0100, L500.2500, L501.2300, L501.5200 #### [facility] [address] [place], [address] Neutrophils/100 WBC (Bld) 73.7 % High 47-70 [facility] Comment on above: Performed By: #### L 100.0100, L500.2500, L501.2300, L501.5200 #### [facility] [address] [place], [address] Nucleated RBC (Bld) [#/Vol] 0 10*3/uL Normal 0-5 [facility] Comment on above: Performed By: #### L 100.0100, L500.2500, L501.2300, L501.5200 #### [facility] [address] [place], [address] Platelet mean volume (Bld) [Entitic vol] 10.8 fL Normal 6.2-12.0 [facility] Comment on above: Performed By: #### L 100.0100, L500.2500, L501.2300, L501.5200 #### [facility] [address] [place], [address] Platelets (Bld) [#/Vol] 297 10*3/uL Normal 150-450 [facility] Comment on above: Performed By: #### L 100.0100, L500.2500, L501.2300, L501.5200 #### [facility] [address] [place], [address] RBC (Bld) [#/Vol] 4.18 10*6/uL Low 4.6-6.2 [facility] Comment on above: Performed By: #### L 100.0100, L500.2500, L501.2300, L501.5200 #### [facility] [address] [place], [address] RDW SD 44.8 fl High 35.1-43.9 [facility] Comment on above: Performed By: #### L 100.0100, L500.2500, L501.2300, L501.5200 #### [facility] [address] [place], [address] WBC (Bld) [#/Vol] 7.9 10*3/uL Normal 4.4-11.0 [facility] Comment on above: Performed By: #### L 100.0100, L500.2500, L501.2300, L501.5200 #### [facility] [address] [place], [address] Comprehensive Metabolic Prof [facility] 04-27-2024 Albumin [Mass/Vol] 3.2 g/dL Normal 3.2-5.0 [facility] Comment on above: Order Comment: 'TROP ' Serial specimen #1, #2 or #3: 1 Performed By: #### L 100.0100, L500.2500, L501.2300, L501.5200 #### [facility] [address] [place], [address] Albumin/Globulin [Mass ratio] 0.9 {ratio} Normal 0.9-2.4 [facility] Comment on above: Order Comment: 'TROP ' Serial specimen #1, #2 or #3: 1 Performed By: #### L 100.0100, L500.2500, L501.2300, L501.5200 #### [facility] [address] [place], [address] ALK P 81 U/L Normal 45-117 [facility] Comment on above: Order Comment: 'TROP ' Serial specimen #1, #2 or #3: 1 Performed By: #### L 100.0100, L500.2500, L501.2300, L501.5200 #### [facility] [address] [place], [address] ALT [Catalytic activity/Vol] 13 U/L Low 16-61 [facility] Comment on above: Order Comment: 'TROP ' Serial specimen #1, #2 or #3: 1 Performed By: #### L 100.0100, L500.2500, L501.2300, L501.5200 #### [facility] [address] [place], [address] AST [Catalytic activity/Vol] 9 U/L Low 15-37 [facility] Comment on above: Order Comment: 'TROP ' Serial specimen #1, #2 or #3: 1 Performed By: #### L 100.0100, L500.2500, L501.2300, L501.5200 #### [facility] [address] [place], [address] Bilirubin [Mass/Vol] 0.50 mg/dL Normal 0.20-1.00 [facility] Comment on above: Order Comment: 'TROP ' Serial specimen #1, #2 or #3: 1 Result Comment: For patients on eltrombopag therapy, use of Dimension Browns TBIL is not recommended. Performed By: #### L 100.0100, L500.2500, L501.2300, L501.5200 #### [facility] [address] [place], [address] BUN/CRE 8.7 RATIO Low 10-20 [facility] Comment on above: Order Comment: 'TROP ' Serial specimen #1, #2 or #3: 1 Performed By: #### L 100.0100, L500.2500, L501.2300, L501.5200 #### [facility] [address] [place], [address] CA,Total 9.1 mg/dL Normal 8.5-10.1 [facility] Comment on above: Order Comment: 'TROP ' Serial specimen #1, #2 or #3: 1 Performed By: #### L 100.0100, L500.2500, L501.2300, L501.5200 #### [facility] [address] [place], [address] Chloride [Moles/Vol] 106 mmol/L Normal 98-107 [facility] Comment on above: Order Comment: 'TROP ' Serial specimen #1, #2 or #3: 1 Performed By: #### L 100.0100, L500.2500, L501.2300, L501.5200 #### [facility] [address] [place], [address] CO2 [Moles/Vol] 28.0 mmol/L Normal 21.0-32.0 [facility] Comment on above: Order Comment: 'TROP ' Serial specimen #1, #2 or #3: 1 Performed By: #### L 100.0100, L500.2500, L501.2300, L501.5200 #### [facility] [address] [place], [address] Creatinine [Mass/Vol] 0.80 mg/dL Normal 0.70-1.30 [facility] Comment on above: Order Comment: 'TROP ' Serial specimen #1, #2 or #3: 1 Result Comment: The validity of the calculated GFR GFRAA in patients over 70 years has not been determined. Clinical correlation is essential. Performed By: #### L 100.0100, L500.2500, L501.2300, L501.5200 #### [facility] [address] [place], [address] ECRCL 126.18 ml/min Normal [facility] Comment on above: Order Comment: 'TROP ' Serial specimen #1, #2 or #3: 1 Performed By: #### L 100.0100, L500.2500, L501.2300, L501.5200 #### [facility] [address] [place], [address] EST GFR - AA 129 mL/min Normal >60 [facility] Comment on above: Order Comment: 'TROP ' Serial specimen #1, #2 or #3: 1 Result Comment: Afri can Thai GFR Calc Performed By: #### L 100.0100, L500.2500, L501.2300, L501.5200 #### [facility] [address] [place], [address] GAP 5 Normal 5-15 [facility] Comment on above: Order Comment: 'TROP ' Serial specimen #1, #2 or #3: 1 Performed By: #### L 100.0100, L500.2500, L501.2300, L501.5200 #### [facility] [address] [place], [address] GFR/1.73 sq M.predicted among non-blacks MDRD (S/P/Bld) [Vol rate/Area] 107 mL/min/{1.73_m2} Normal >60 [facility] Comment on above: Order Comment: 'TROP ' Serial specimen #1, #2 or #3: 1 Result Comment: Non- GFR Calc Performed By: #### L 100.0100, L500.2500, L501.2300, L501.5200 #### [facility] [address] [place], [address] Globulin (S) [Mass/Vol] 3.4 g/dL Normal 2.2-4.2 [facility] Comment on above: Order Comment: 'TROP ' Serial specimen #1, #2 or #3: 1 Performed By: #### L 100.0100, L500.2500, L501.2300, L501.5200 #### [facility] [address] [place], [address] Glucose [Mass/Vol] 104 mg/dL Normal 74-106 [facility] Comment on above: Order Comment: 'TROP ' Serial specimen #1, #2 or #3: 1 Result Comment: Fast ing Glucose result from 100 to 125 mg/dL suggests IMPAIRED HOMEOSTASIS per A.D.A. criteria. Performed By: #### L 100.0100, L500.2500, L501.2300, L501.5200 #### [facility] [address] [place], [address] Potassium [Moles/Vol] 3.5 mmol/L Normal 3.5-5.1 [facility] Comment on above: Order Comment: 'TROP ' Serial specimen #1, #2 or #3: 1 Performed By: #### L 100.0100, L500.2500, L501.2300, L501.5200 #### [facility] [address] [place], [address] Sodium [Moles/Vol] 140 mmol/L Normal 136-145 [facility] Comment on above: Order Comment: 'TROP ' Serial specimen #1, #2 or #3: 1 Performed By: #### L 100.0100, L500.2500, L501.2300, L501.5200 #### [facility] [address] [place], [address] T PROT 6.6 g/dL Normal 6.4-8.2 [facility] Comment on above: Order Comment: 'TROP ' Serial specimen #1, #2 or #3: 1 Performed By: #### L 100.0100, L500.2500, L501.2300, L501.5200 #### [facility] [address] [place], [address] Urea nitrogen [Mass/Vol] 7 mg/dL Normal 7-18 [facility] Comment on above: Order Comment: 'TROP ' Serial specimen #1, #2 or #3: 1 Performed By: #### L 100.0100, L500.2500, L501.2300, L501.5200 #### [facility] [address] [place], [address] Emergency Department Summary on 04-27-2024 Emergency Department Summary [facility] Medical Records Department [address] [place] [address] Emergency Department Summary 04/27/24 MR#: [id number] Acct: [id number] Name: ROSALVA WILLETT Rep #: [id number] : 1970 54 From: Gregoria Treviño DO PCP: Dr. Demetrius Phelps, Status:ADM IN Location[place] [facility] [place] MJ354-1 HPI HPI - GI History of Present Illness Chief Complaint: Abd Pain Detail of Chief Complaint: Abdominal pain Informant: patient Narrative Narrative: Patient presents with abdominal pain that started yesterday. Describes it as right upper quadrant radiating to his back. He said no nausea or vomiting. Food really does not seem affected much. Not very positional. Denies chest pain or shortness of breath. Denies recent travel or surgery. Denies history of kidney stones. He denies urinary symptoms. PFSH PFS Home Medications ???Medication ???Instructions ???Recorded ???Last Taken ???Type fenofibrate nanocrystallized 48 mg 45 mg PO DAILY 01/16/18 Unknown History tablet pravastatin 20 mg tablet 20 mg PO QHS 01/16/18 Unknown History Allergy/AdvReac Type Severity Reaction Status Date / Time No Known Allergies Allergy Verified 04/27/24 17:07 Social History Smoking Status: Current some day smoker tobacco type: cigars ROS ROS ED Review of Systems ROS Unobtainable: other Constitutional Constitutional ED: Reports lethargy; Denies chills, fever(s), sweats or weight loss Eyes Eyes: Denies blurry vision, change in vision or diplopia ENT ENT ED: Denies rhinorrhea or sore throat Cardiovascular Cardiovascular: Denies chest pain, orthopnea or racing heartbeat Respiratory/Chest Respiratory/Chest: Denies cough, dyspnea, dyspnea on exertion, orthopnea or sputum Gastrointestinal Gastrointestinal: Reports abdominal pain; Denies diarrhea, nausea or vomiting Genitourinary Genitourinary ED: Denies dysuria, hematuria or urinary frequency Musculoskeletal Musculoskeletal: Denies arthralgias, back pain, myalgias or neck pain Integumentary Denies abscess, Abrasions or rash Neurologic Neurologic: Denies headache(s) or weakness Psychiatric Psychiatric: Denies anxiety, depression or suicidal thoughts Endocrine Endocrinology: Denies polydipsia, polyphagia or polyuria Hematologic/Lymphatic Hematologic/Lymphatic: Denies easy bleeding, easy bruising or lymphadenopathy Allergic/Immunologic Allergic/Immunologic ED: Denies mouth swelling, tongue swelling or urticaria EXAM Physical Exam Const Vital Signs: 04/27/24 17:06 04/27/24 19:31 Temperature 98.6 F Temperature Source Oral Pulse Rate 90 71 Respiratory Rate 16 18 Blood Pressure 152/74 H 135/78 H Blood Pressure Mean 100 97 Pulse Ox 99 98 Oxygen Delivery Method Room Air Room Air Positive well nourished and well developed General Appearance ED: well developed and NAD HEENT Reports TM's clear and moist mucous membranes normocephalic and atraumatic; Negative for trauma or tenderness Tympanic Membrane ED: Yes TM's clear Eyes PERRL and EOMs intact bilaterally General Eye ED: Negative for pale conjunctiva or scleral icterus Neck no lymphadenopathy, supple and no JVD General: Negative for tenderness Chest Wall inspection of chest normal and palpation of chest normal Chest: Negative for tenderness Resp normal respiratory effort and clear to auscultation bilaterally Effort and Inspection: Negative for respiratory distress or pain with movement Auscultation: Negative for rhonchi, wheezes or diminished lung sounds Cardio regular rate, regular rhythm, S1 normal heart sound, S2 normal heart sound and no murmurs Peripheral Pulses: pulses 2+ throughout GI normal to inspection, nondistended, normoactive bowel sounds, soft to palpation, non-distended and no masses GI Narrative: Tenderness palpation over right upper quadrant with guarding. There is a positive Bolden sign. There is no rebound or rigidity. Back/Spine no CVA tenderness and no thoracic nor lumbar tenderness Extremity normal to inspection General Extremety ED: Negative for edema General Extremity: Negative for edema Neuro oriented x3, CN's II-XII intact bilaterally, no sensory deficits noted and gait normal Sensorium / Orientation: awake, alert, oriented to person, oriented to place and oriented to time Motor Exam: strength 5/5 throughout and strength abnormal Psych mental status grossly normal Skin no rashes or lesions noted and no wounds MDM MDM MDM Narrative Medical decision making narrative: Patient with right upper quadrant abdominal pain that started yesterday. In the differential would be diverticulitis of the transverse colon versus gallbladder disease or bowel obstruction or bowel perforation. Kidney stone also would be in the differential. IV line established. He did not want thing fo (more content not included)... Normal [facility] HER-2-PIPO (initial)on 2024 HER-2-PIPO (initial) ------- Patient Age/Sex Location Account Attending Physician ROSALVA WILLETT 54/M MS3 [id number] Dr. Ruddy Coffman MD Specimen: [id number] Received: 05/03/24 Status: FIFI Cruz Num: [id number] Spec Type: IMMUNO Subm Dr: Dr. Ruddy Coffman MD PHYSICIAN INSTITUTION [place] [address] SPECIMEN INFORMATION: Tissue Source: A- Right colon and appendix Clinical Info: Intussuspection Specimen Number: [id number] CPT code: 50705,61092s7 METHODOLOGY: Deparaffinized sections of prefer/formalin-fixed tissue or PAP/DQ stained slides are incubated with monoclonal/polyclonal antibodies/oligonucleotide probes. Localization is made via biotin free immunoperoxidase method. Appropriate controls are performed and reacted as expected. Results on target cell population are indicated in the following table: RESULTS: ANTIBODY / CLONE RESULT Block A 7 Her-2neu (CB11) negative (1+) MOC-31 (4561) positive MLH-1 (M1) positive MSH2 (25D12) positive MSH6 (44) positive PMS2 (ZVE5715) positive Ki-67 (30-9) positive, high P53 (DO-7) positive, rare cells ( wild type pattern ) Testing for Her2 by IHC if equivocal, recommend testing for Her2 by FISH(remove/not needed) These tests were developed and their performance characteristics determined by [facility]. They may not have been cleared or approved by the U.S. Food and Drug Administration. The FDA has determined that such clearance or approval is not necessary. The above immunohistochemical/dualISH markers are ordered and reviewed by the Pathologist. 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 Result of Microsatellite Instability Study: Negative (no loss of mismatch protein; no microsatellite instability detected). 05/04/2024 Signed (signature on file) Dr. Anirudh Rico MD 05/04/24 0943 Normal [facility] Comment on above: Performed By: #### L 100.0100, L500.2500, L501.2300, L501.5200 #### [facility] [address] [place], [place], [address] L501.4020on 04-27-2024 TROPONIN-I HS 4 pg/mL Normal 3.0-78.0 [facility] Comment on above: Order Comment: 'TROP ' Serial specimen #1, #2 or #3: 1 Result Comment: John jenkins Note: New Test Units and Gender Specific Reference Ranges. For more information see Policy Stat Procedure Browns High Sensitivity Troponin (TNIH) and attachments. Performed By: #### L 100.0100, L500.2500, L501.2300, L501.5200 #### [facility] [address] [place], [address] Lactic Acidon 04-27-2024 Lactate [Moles/Vol] 1.2 mmol/L Normal 0.4-1.9 [facility] Comment on above: Order Comment: Y Performed By: #### L 100.0100, L500.2500, L501.2300, L501.5200 #### [facility] [address] [place], [address] Lipaseon 04-27-2024 Lipase [Catalytic activity/Vol] 37 U/L Normal 13-75 [facility] Comment on above: Order Comment: 'TROP ' Serial specimen #1, #2 or #3: 1 Result Comment: John jenkins note: LIPASE revised reference range effective 22. New Lipase methodology. Expected to produce lower values than the previous assay method. NEW Reference Range: 13 - 75 U/L Performed By: #### L 100.0100, L500.2500, L501.2300, L501.5200 #### [facility] [address] [place], [place], [address] Surgery Specimen Level Christine 04-27-2024 Surgery Specimen Level IV Patient Age/Sex Location Account Attending Physician ROSALVA WILLETT 54/M MS3 [id number] Dr. Ruddy Coffman MD Specimen: [id number] Received: 04/28/24 Status: FIFI [place] Num: [id number] Spec Type: COLON Subm Dr: Dr. Ruddy Coffman MD HEADER OPERATION: Laparoscopic krupa colectomy PRE-OP DIAGNOSIS: Intussusception TISSUE SUBMITTED: A- Right colon and appendix, B- Omentum, C- Right colon staple line MICROSCOPIC DIAGNOSIS A. 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 See cancer summary in the comment section. B. Omentum: A piece of adipose tissue with congestion, hemorrhage, acute inflammation and fibrinous exudation. Negative for malignancy. C. Right colon staple line: Small intestine donut: No pathologic diagnosis. Colonic donut with serosal acute inflammation and fibrinous exudation. SJ.mr 05/03/2024 COMMENT A. COLON CANCER SUMMARY: Specimen - Right colon Procedure - Right hemicolectomy Tumor site - Ascending colon Tumor size - 6 x 4.5 x 3.5cm Macroscopic tumor perforation - Not identified Histologic type - Adenocarcinoma with extensive mucinous differentiation Histologic grade - Grade 2, moderately differentiated Microscopic tumor extension - Tumor invades through muscularis propria into pericolonic adipose tissue Margins: Margins are uninvolved by invasive carcinoma., high grade dysplasia, intramucosal carcinoma and adenoma. The tumor is 8cm away from the closest distal resection margin. Treatment effect - No known presurgical therapy Lymphvascular invasion - Not identified Perineural invasion - Not identified Tumor deposits - None identified Type of polyp in which invasive carcinoma arose - None identified Lymph nodes: Number of lymph nodes examined - 14 Number of lymph nodes involved - 1 The metastatic focus of tumor measures 0.4cm in greatest dimension. Extranodal extension is not identified Additional pathologic findings - Appendix with complete luminal obliteration. Colonic resection margin with serosal acute inflammation. Patient Age/Sex Location Account Attending Physician ROSALVA WILLETT 54/M MS3 [id number] Dr. Ruddy Coffman MD Ancillary studies: IHC for microsatellite instability study by IHC ([id number]) will be reported separately. PATHOLOGIC STAGE: pT3p N1 pMx The above summary is in compliance with [employer] (CAP) Cancer Protocols Checklist and [place] Joint Committee on Cancer (AJCC), Staging Manual, 8th Ed. This case has been reviewed in consultation with Dr. Chavez who concurs with the above diagnosis. IDC: [id number] MICROSCOPIC DESCRIPTION Slides are reviewed. GROSS DESCRIPTION A. Received in fixative is one container labeled with the patient's name and designated Right colon. The specimen consists of a right hemicolectomy specimen consisting of cecum with ascending colon with attached pericolonic adipose tissue, segment of small intestine with attached mesentery and appendix. Cecum with ascending colon measures 16.0cm in length, small intestine measures 11.0cm in length and appendix measures 8.0cm in length and 0.3cm in diameter. Both resection margins are stapled. The lumen is filled with fecal material. 8cm away from the distal resection margin and 4cm away from the ileocecal valve there is a polypoid cauliflower like mass in the ascending colon measuring 6.0 x 4.5 x 3.5cm. Colonic mucosa is congested. No additional mass lesions are identified. Pericolonic adipose tissue is fixed in lymph node revealing solution. More dictation will follow fixation. RHODA.mr 04/28/2024 Section of appendix reveal unremarkable cut surfaces and complete luminal obliteration. Section of the tumor reveal a focal mucinous cut surfaces the tumor and it involves full thickness of the bowel wall. Section of pericolonic adipose tissue reveal multiple lymph nodes. Largest lymph node measures 1 cm in greatest dimension. [employer] sections are submitted as follows: 1- proximal and distal resection margins, 2- appendix, 3- player services representative section of uninvolved small, large bowel and ileocecal valve, 4-8- tumor, 9-17- lymph node (cassettes 9-14-each cassette containing one bisected lymph (more content not included)... Normal [facility] Comment on above: Performed By: #### L 100.0100, L500.2500, L501.2300, L501.5200 #### [facility] [address] [place], [address] Encounters Encounter Date Encounter Type Care Provider Facility Start: 11-01-2024 ambulatory Jose Albertovirginia Isabel Facili ty:[facility] Start: 09-17-2024 ambulatory Demetrius MonrealLenin Facility: [facility] Start: 08-09-2024 End: 08-09-2024 ambulatory Demetrius Phelps Facility:[facility] Start: 07-26-2024 End: 07-26-2024 ambulatory Amialexy Turpin Facility:[facility] Start: 07-12-2024 End: 07-12-2024 ambulatory Ami Dyana [facility] Start: 06-30-2024 End: 06-30-2024 ambulatory Gladys Siddiqui [facility] Start: 06-28-2024 End: 06-28-2024 ambulatory Ami Dyana [facility] Start: 06-14-2024 End: 06-14-2024 ambulatory Ashtyn Wiliam [facility] Start: 05-31-2024 End: 05-31-2024 ambulatory Ami Dyana [facility] Start: 05-26-2024 ambulatory Ruddy Coffman [facility]: [facility] Start: 05-26-2024 End: 05-26-2024 ambulatory Demetrius Phelps Facility:[facility] Start: 05-21-2024 End: 05-21-2024 ambulatory Demetrius Lenin Facility:[facility] Start: 05-18-2024 ambulatory Ruddy Coffman [facility]: [facility] Start: 05-18-2024 End: 05-18-2024 ambulatory Demetrius Phelps Facility:[facility] Start: 05-17-2024 End: 05-17-2024 ambulatory Demetrius Phelps [facility] Start: 05-17-2024 End: 05-17-2024 ambulatory Demetrius Phelps [facility] Start: 05-12-2024 End: 05-12-2024 ambulatory Demetrius Phelps [facility] Start: 05-11-2024 End: 05-11-2024 ambulatory Demetrius Phelps [facility] Start: 05-05-2024 End: 05-05-2024 ambulatory Demetrius Pehlps [facility] Start: 05-05-2024 End: 05-05-2024 ambulatory Demetrius Phelps Facility:[facility] Start: 04-28-2024 ambulatory Ruddy Coffman [facility]: [facility] Start: 04-28-2024 End: 04-30-2024 Evaluation and management of inpatient Ruddy Coffman Facility:[facility] Start: 04-27-2024 ambulatory Ruddy Coffman [facility]: [facility] Start: 04-05-2024 End: 04-05-2024 ambulatory [facility] Facility:[facility] Payers Date Payer Category Payer Self-pay 2024 Unknown [id number] 2024 Unknown [id number] Unknown [id number] 2.16.8 40.1.030839.3.579.2.462 Unknown [id number] 2.16.8 40.1.980656.3.579.2.462 Unknown [id number] 2.16.8 40.1.947949.3.579.2.462 Unknown [id number] 2.16.8 40.1.568309.3.579.2.462 Unknown [id number] 2.16.8 40.1.192616.3.579.2.462 Unknown [id number] 2.16.8 40.1.942664.3.579.2.462 Unknown [id number] 2.16.8 40.1.664276.3.579.2.462 Unknown [id number] 2.16.8 40.1.461065.3.579.2.462 Unknown [id number] 2.16.8 40.1.733821.3.579.2.462 Unknown [id number] 2.16.8 40.1.624381.3.579.2.462 Unknown [id number] 2.16.8 40.1.356360.3.579.2.462 Unknown [id number] 2.16.8 40.1.734996.3.579.2.462 Unknown [id number] 2.16.8 40.1.211851.3.579.2.462 Unknown [id number] 2.16.8 40.1.460864.3.579.2.462 Unknown [id number] 2.16.8 40.1.594043.3.579.2.462 Unknown [id number] 2.16.8 40.1.758633.3.579.2.462 Unknown [id number] 2.16.8 40.1.856022.3.579.2.462 Unknown [id number] 2.16.8 40.1.811800.3.579.2.462 Unknown [id number] 2.16.8 40.1.329452.3.579.2.462 Unknown [id number] 2.16.8 40.1.458198.3.579.2.462 Unknown [id number] 2.16.8 40.1.677164.3.579.2.462 Unknown [id number] 2.16.8 40.1.591324.3.579.2.462 Unknown [id number] 2.16.8 40.1.292753.3.579.2.462 Unknown [id number] 2.16.8 40.1.058948.3.579.2.462 Unknown [id number] 2.16.8 40.1.588180.3.579.2.462 Unknown [id number] 2.16.8 40.1.284726.3.579.2.462 Clinical Note 05-26-2024 Note Date & Type Note Facility 05-26-2024 Note [facility] Medical Records Department [address] [place] [address] History Physical Exam 05/26/24 1117 MR#: [id number] Acct: [id number] Name: ROSALVA WILLETT STAR Rep #: [id number] : 1970 54 From: Ruddy Coffman MD PCP: Dr. Demetrius Phelps, DO Status:[facility] Location: [place] [address] History and Physical Date of Admission: 05/26/24 [facility] [address] [place] [address] OFFICE VISIT Date of Service: 05/17/24 MR#: [id number] Acct: [id number] Name: ROSALVA WILLETT Rep #: [id number] : 1970 Provider: Dr. Ruddy Coffman MD Age/Sex: 54/M Location: [facility] Status: Signed Intake Vital Signs 05/11/2508:04 05/17/2511:29 Height 5 ft 11 in 5 ft 11 in Weight: 217 lb 2 oz BMI 30.2 BP 122/81 H Blood Pressure Location Rt brachial Position Sitting Respiration 18 Pulse 82 Pulse Source Monitor Temp 97.8 F Temp Source Temporal Pulse Oximetry (%) 99 Oxygen Delivery Method room air Intake Visit Reasons: PORT PLACEMENT Chief Complaint: port placement Accompanied by: Is patient in pain?: No Allergies No Known Allergies Allergy (Verified 05/17/24 14:29) Medications ???Medication ???Instructions ???Recorded ???Confirmed ???Type lidocaine-prilocaine 2.5 %-2.5 % 1 applic topical ONCE PRN port 05/17/24 05/17/24 R x topical cream acces 30 days #30 grams ondansetron 8 mg disintegrating 8 mg PO Q8H PRN nausea and 05/17/24 05/17/24 Rx tablet vomiting #30 tabs prochlorperazine maleate 10 mg 10 mg PO Q6H PRN nausea and 05/17/24 05/17/24 Rx tablet vomiting #30 tabs PFSH Medical History (Updated 05/17/24 @ 17:[address] Ruddy Coffman MD) Iron deficiency anemia Anemia Regional lymph node metastasis present Colon cancer Smoker Intussusception Abdominal pain Surgical History H/O hemicolectomy Family History Father Colon cancer, Onset Age: 70Mother Diabetes Social History Smoking Status: Current every day smoker tobacco type: cigars alcohol intake: never substance use type: does not use HPI HPI HPI: Patient is a 54-year-old male who presents for consideration of port placement after he was diagnosed with colon cancer and isabel metastasis in the aftermath of a laparoscopic assisted right hemicolectomy by me on 04/28/2024. He presents today with his . They have met with oncology and plans are to begin chemotherapy but the date is yet to be set. He shares today that he is feeling great. He denies any pain or bowel issues. Patient has no prior history of central line placement. Patient has no pacemaker or intracardiac defibrillator. Mr. Willett has no history of staph infection. Beyond consideration of port placement Mr. Willett is here for consideration of possible colonoscopy. ROS General General: Yes weight change (loss) and colon cancer; No appetite, fatigue, breast cancer or weakness HEENT HEENT: No difficulty swallowing, eye injury, eye surgery, swollen glands or hoarseness Endo Endocrine: No thyroid disease, diabetes mellitus, thyroid cancer, Hair loss, heat intolerance or cold intolerance Skin Skin: No rash or changing moles Musc Musculoskeletal: No back problems, arthritis, rheumatoid arthritis, gout or joint pain Cardio Cardiovascular: No murmur, pacemaker, heart disease, atrial fibrillation, high blood pressure, heart attack, heart stent, palpitations, shortness of breat with exertion or chest pain Psych Psychiatric: No depression, anxiety or hearing voices Resp Respiratory: No shortness of breath, No sleep apnea, No cough, No COPD, No asthma, No emphysema and No wheezing Gastro Gastrointestinal: No abdominal pain, No nausea or vomiting, No diarrhea, No constipation, No blood in stool, No acid reflux, No hemorrhoids, No ulcers, No gallbladder problem and No black,tarry stools Willie Hematologic: No blood thinners, No blood disorders, No bleeding, No anemia and No blood clots Neuro Neurologic: No numbness, No tingling and No weakness Exam Const General: cooperative, comfortable and no acute distress Orientation: alert, awake and oriented x3 Chest Other: No scars, no rashes or erythema Resp Effort Inspection: normal respiratory effort GI Other: Nondistended, crusted blood adherent to patient's midline wound, otherwise well-healing without signs of infection. Soft, nontender to palpation x 4 quad (more content not included)... [facility] Clinical Note 05-18-2024 Note Date & Type Note Facility 05-18-2024 Note [facility] Medical Records Department [address] [place] [address] History Physical Exam 05/18/24 0826 MR#: [id number] Acct: [id number] Name: ROSALVA WILLETT Rep #: [id number] : 1970 54 From: Ruddy Coffman MD PCP: Dr. Demetrius Phelps, DO [place] [address] History and Physical Date of Admission: 05/18/24 Date of Service: 05/17/24 MR#: [id number] Acct: [id number] Name: ROSALVA WILLETT Rep #: [id number] : 1970 Provider: Dr. Ruddy Coffman MD Age/Sex: 54/M Location: [facility] Status: Signed Intake Vital Signs 05/11/2508:04 05/17/2511:29 Height 5 ft 11 in 5 ft 11 in Weight: 217 lb 2 oz BMI 30.2 BP 122/81 H Blood Pressure Location Rt brachial Position Sitting Respiration 18 Pulse 82 Pulse Source Monitor Temp 97.8 F Temp Source Temporal Pulse Oximetry (%) 99 Oxygen Delivery Method room air Intake Visit Reasons: PORT PLACEMENT Chief Complaint: port placement Accompanied by: Is patient in pain?: No Allergies No Known Allergies Allergy (Verified 05/17/24 14:29) Medications ???Medication ???Instructions ???Recorded ???Confirmed ???Type lidocaine-prilocaine 2.5 %-2.5 % 1 applic topical ONCE PRN port 05/17/24 05/17/24 R x topical cream acces 30 days #30 grams ondansetron 8 mg disintegrating 8 mg PO Q8H PRN nausea and 05/17/24 05/17/24 Rx tablet vomiting #30 tabs prochlorperazine maleate 10 mg 10 mg PO Q6H PRN nausea and 05/17/24 05/17/24 Rx tablet vomiting #30 tabs PFSH Medical History (Updated 05/17/24 @ 17:[address] Ruddy Coffman MD) Iron deficiency anemia Anemia Regional lymph node metastasis present Colon cancer Smoker Intussusception Abdominal pain Surgical History H/O hemicolectomy Family History Father Colon cancer, Onset Age: 70Mother Diabetes Social History Smoking Status: Current every day smoker tobacco type: cigars alcohol intake: never substance use type: does not use HPI HPI HPI: Patient is a 54-year-old male who presents for consideration of port placement after he was diagnosed with colon cancer and isabel metastasis in the aftermath of a laparoscopic assisted right hemicolectomy by me on 04/28/2024. He presents today with his . They have met with oncology and plans are to begin chemotherapy but the date is yet to be set. He shares today that he is feeling great. He denies any pain or bowel issues. Patient has no prior history of central line placement. Patient has no pacemaker or intracardiac defibrillator. Mr. Willett has no history of staph infection. Beyond consideration of port placement Mr. Willett is here for consideration of possible colonoscopy. ROS General General: Yes weight change (loss) and colon cancer; No appetite, fatigue, breast cancer or weakness HEENT HEENT: No difficulty swallowing, eye injury, eye surgery, swollen glands or hoarseness Endo Endocrine: No thyroid disease, diabetes mellitus, thyroid cancer, Hair loss, heat intolerance or cold intolerance Skin Skin: No rash or changing moles Musc Musculoskeletal: No back problems, arthritis, rheumatoid arthritis, gout or joint pain Cardio Cardiovascular: No murmur, pacemaker, heart disease, atrial fibrillation, high blood pressure, heart attack, heart stent, palpitations, shortness of breat with exertion or chest pain Psych Psychiatric: No depression, anxiety or hearing voices Resp Respiratory: No shortness of breath, No sleep apnea, No cough, No COPD, No asthma, No emphysema and No wheezing Gastro Gastrointestinal: No abdominal pain, No nausea or vomiting, No diarrhea, No constipation, No blood in stool, No acid reflux, No hemorrhoids, No ulcers, No gallbladder problem and No black,tarry stools Willie Hematologic: No blood thinners, No blood disorders, No bleeding, No anemia and No blood clots Neuro Neurologic: No numbness, No tingling and No weakness Exam Const General: cooperative, comfortable and no acute distress Orientation: alert, awake and oriented x3 Chest Other: No scars, no rashes or erythema Resp Effort Inspection: normal respiratory effort GI Other: Nondistended, crusted blood adherent to patient's midline wound, otherwise well-healing without signs of infection. Soft, nontender to palpation x 4 quadrants Assessment and Plan Assessment and Plan (1) Colon cancer: Status: Acute Comment: Patient is a 54-year-old male with colon cancer diagno (more content not included)... [facility] Discharge summary note 04-30-2024 Note Date & Type Note Facility 04-30-2024 Note [facility] Medical Records Department [address] [place] [address] Discharge Summary 04/30/24 1641 MR#: [id number] Acct: [id number] Name: ROSALVA WILLETT Rep #: [id number] : 1970 54 From: Ruddy Coffman MD PCP: Dr. Demetrius Phelps DO Status:ADM IN Location: [place] [id number] Providers Date of Admission: 04/28/24 Primary Care Physician: Dr. Demetrius Phelps DO Reason For Visit: COLON INTUSSUSCEPTION Diagnosis Discharge Diagnosis (1) Intussusception: Status: Acute Code(s): K56.1 - Intussusception Plan: Patient is 54-year-old, otherwise healthy, male who presents with signs and symptoms of colocolonic intussusception beginning approximately 36 hours ago. He is markedly tender on exam but, fortunately, has no evidence of leukocytosis or CT evidence of bowel ischemia. I described the diagnosis in detail to both he and his and shared that in adults intussusception is found to be associated with a pathologic lead point and approximately 90% of cases. As such I recommended proceeding emergently for a formal right hemicolectomy with plans for immediate ileocolonic anastomosis. Relevant anatomy was discussed and they did share that infrequently operative events occur that lead us to creation of an ostomy for evacuation of waste rather than being able to create an anastomosis. I also shared how the extent of resection should be considered oncologically sound given the risk for cancer and need for adequate margins/lymph node harvest in the event pathology confirms a cancer. Given the patient has a virgin abdomen, no obstruction, and otherwise is nondistended I believe it is reasonable to proceed at least initially with a laparoscopic approach but did inform Mr. Willett that the specimen must ultimately be extracted and this would likely require a limited laparotomy incision. Following the procedure I informed Mr. Willett that he will be admitted to the hospital for ongoing care will we will look to see that he obtains adequate pain control and ultimately tolerates a regular diet with resumption of bowel function. Both he and his were given the opportunity ask questions and once these were answered the operative team was notified of my intent to proceed with hemicolectomy. Ruddy Coffman MD General Surgery Endocrine Surgery Pager: [facility] [address] [place] [address], [facility], [address] [place] [id number] Office: [phone] Medications at Discharge Home Medications oxycodone 5 mg tablet 5 mg PO Q6H PRN PRN Pain Score 6-10 5 days #14 tabs 04/30/24 Hospital Course Operations colectomy (Laparoscopic assisted right hemicolectomy) Summary of Care Provided Hospital Course: Patient is a 54-year-old male who presented evening of 04/27/2024 due to complaints of progressive right-sided abdominal discomfort. His ER workup included CT imaging of the abdomen pelvis which showed evidence of colocolonic intussusception. This occasioned a surgical consult and on exam he had focal peritonitis. With this imaging and exam I recommended proceeding for emergent right hemicolectomy and given his otherwise stable clinical status I recommended we proceed with laparoscopic right hemicolectomy. After a description of the procedure and its risks and benefits he provided his consent and this procedure was undertaken late that evening into the early hours of the following morning. He was then monitored closely for pain control and encouraged in ambulation which he readily participated in as early as postoperative day 0. A Muñiz catheter was removed later postoperative day 0 and he experienced spontaneous return of micturition. He was held n.p.o. aside from sips and chips until he demonstrated bowel function which returned postoperative day 2. An operative drain was monitored closely each day as his bowel function returned but transition from serosanguineous to straight serous output. Laboratories were also monitored and a mild leukocytosis resolved and hemoglobin remained stable. By the morning of postoperative day 3 he was feeling well with minimal discomfort and experiencing regular bowel function so his diet was again advanced. He tolerated this diet advanced without issue and his drain output remained appropriate so his drain was removed. With these clinical improvements he was deemed suitable for discharge to home but we carefully reviewed postoperative wound care and activity restrictions in person before discharge was granted. I also requested that he demonstrate tolerance of 1 more medial at his advance diet. He did so without difficulty and thus the request was granted. Will plan to follow-up with patient in 1 to 2 weeks as an outpatient to confirm wound healing and review pathology. Physical Exam Const alert, oriented x3 and no apparent (more content not included)... [facility] Clinical Note 04-27-2024 Note Date & Type Note Facility 04-27-2024 Note [facility] Medical Records Department [address] [place] [place] [address] History Physical Exam 04/27/242011 MR#: [id number] Acct: [id number] Name: ROSALVA WILLETT Rep #: [id number] : 1970 54 From: Ruddy Coffman MD PCP: Dr. Demetrius Phelps, DO Status:ADM IN Location: [facility] [place] [facility] HPI - General General Date of Service: 04/27/24 Chief Complaint: Acute onset right upper quadrant pain HPI Narrative ROSALVA WILLETT, is a 54 M who presents to [facility] with complaints of acute onset right upper quadrant pain beginning yesterday morning. He shares that this pain has become constant in character and radiates through to his back. Generally states that it is of moderate intensity rating it a 5 or 6 of 10 but can progress to a higher intensity. He denies any associated nausea or vomiting. He confirms that his bowel habits have been regular and unremarkable. He shares he did not seek evaluation sooner because he was up at [facility] visiting his grandson who is critically ill. Upon evaluation in the emergency department emergency medicine suspected possible gallbladder issue as patient displayed marked tenderness in right upper quadrant with positive Bolden sign. Mr. Willett underwent ER workup with laboratories and CT imaging. The former showed some mild anemia but otherwise was unremarkable???including normal LFTs. However, CT imaging was more significant showing evidence of colocolonic intussusception of the right colon. Upon noting this finding I was contacted by emergency medicine. Mr. Willett denies any previous experience of right upper quadrant pain of this character. There is a record in the EMR that suggests a prior presentation of a similar complaint but ultimately was diagnosed with hepatitis. Mr. Willett does not recall any further details of this issue and denies any known medical diagnoses and denies taking any medicines on a regular basis. He further denies any history of surgery. Mr. Willett has never undergone colonoscopy. He denies any family history of colon cancer. Lastly Mr. Willett denies any recent weight loss and does share that he had some dark stools over New Year's when he had an illness where he was taking Pepto-Bismol but otherwise his bowels have been unremarkable. PFSH Home Medications ???Medication ???Instructions ???Recorded ???Last Taken ???Type fenofibrate nanocrystallized 48 mg 45 mg PO DAILY 01/16/18 Unknown History tablet pravastatin 20 mg tablet 20 mg PO QHS 01/16/18 Unknown History Allergy/AdvReac Type Severity Reaction Status Date / Time No Known Allergies Allergy Verified 04/27/24 17:07 Social History Smoking Status: Current some day smoker tobacco type: cigars Vital Signs Vital Signs Vital Signs: 04/27/24 17:06 04/27/24 19:31 Temperature 98.6 F Temperature Source Oral Pulse Rate 90 71 Respiratory Rate 16 18 Blood Pressure 152/74 H 135/78 H Blood Pressure Mean 100 97 Pulse Ox 99 98 Oxygen Delivery Method Room Air Room Air Weight Weight: 232 lb Body Mass Index (BMI) 34.2 Physical Exam Const alert, oriented x3, no apparent distress and well nourished General Appearance: cooperative GI GI Narrative: Hirsute, no scars, no visible herniations. Nondistended, soft, markedly tender to palpation with focal peritonitis in right upper quadrant???otherwise unremarkable Results Lab / Micro Data 04/27/24 18:00 04/27/24 18:00 Labs: Laboratory Results - last 24 hr 04/27/24 18:00: WBC 7.9, RBC 4.18 L, Hgb 11.2 L, Hct 35.0 L, MCV 83.7, MCH 26.8 L, MCHC 32.0, RDW Std Deviation 44.8 H, RDW Coeff of Ana 14.6, Plt Count 297, MPV 10.8, Immature Gran % (Auto) 0.400, Neut % (Auto) 73.7 H, Lymph % (Auto) 14.8 L, Piute % (Auto) 9.6, Eos % (Auto) 0.9, Baso % (Auto) 0.6, Absolute Neuts (auto) 5.9, Absolute Lymphs (auto) 1.17, Nucleated RBC % 0, Sodium 140, Potassium 3.5, Chloride 106, Carbon Dioxide 28.0, Anion Gap 5, BUN 7, Creatinine 0.80, Estim Creat Clear Calc 126.18, Est GFR (MDRD) Af Amer 129, Est GFR (MDRD) Non-Af 107, BUN/Creatinine Ratio 8.7 L, Glucose 104, Lactic Acid 1.2, Calcium 9.1, Total Bilirubin 0.50, AST 9 L, ALT 13 L, Alkaline Phosphatase 81, Troponin I High Sens 4, Total Protein 6.6, Albumin 3.2, Globulin 3.4, Albumin/Globulin Ratio 0.9, Lipase 37 Imaging Radiology Impression Abdomen/Pelvis CT 04/27/24 17:49 IMPRESSION: Colocolic intussusception. No obstruction. Electronically Signed: Dipak Stewart MD at 19:07 EST , ADDENDUM: 04/27/241917 IMPRESSION: Colocolic intussusception. No obstruction. N.B. : The above Results were Read Back by Dipak Stewart, (more content not included)... [facility] Summary Purpose Family History No Family History Records FoundNo Family History Records Found Advance Directives No Advanced Directives Records FoundNo Advanced Directives Records Found Additional Source Comments (unrecognized sect ion and content) No Status Records FoundNo Status Records Found INFORMATION SOURCE (unrecogn ized section and content) DATE CREATED AUTHOR 04/07/2024 [facility] DATE CREATED AUTHOR AUTHOR'S SHAUN ATKELLI 11/01/2024 [facility] FOR RECORDS PERTAINING TO PATIENTS WHO ARE OR HAVE BEEN ENROLLED IN A CHEMICAL DEPENDENCY/SUBSTANCEABUSE PROGRAM, SOME INFORMATION MAY BE OMITTED. This clinical summary was aggregated from multiple sources. Caution should be exercised in using it in the provision of clinical care. This summary normalizes information from multiple sources, and as a consequence, information in this document may materially change the coding, format and clinical context of patient data. In addition, data may be omitted in some cases. CLINICAL DECISIONS SHOULD BE BASED ON THE PRIMARY CLINICAL RECORDS. [facility] provides no warranty or guarantee of the accuracy or completeness of information in this document.
[2024-11-01] MEDS: 0.9 % NaCl (Sterile) Posiflush 10 mL IV (07:10)
== END | disposition home or self-care (01) ==
LOC: CT 06:38
PROVIDERS: PCP Family Medicine; Referring Provider Internal Medicine Hematology & Oncology; Visit Provider Internal Medicine Hematology & Oncology
DX: C18.9 Malignant neoplasm of colon, unspecified (principal); C77.9 Secondary and unspecified malignant neoplasm of lymph node, unspecified
CPT/HCPCS: 71260; 74177; Q9967; A4216

== ENCOUNTER 2025-03-17 12:11 | Emergency (ER) | payer OTHER, SELFPAY ==
[2025-03-17 12:12] VITALS: BP 159/87; PULSE 74; RESP 18; TEMP 36.6; O2SAT 97
--- NOTE | 2025-03-17 12:40 | EDS_ITS ---
HPI History of Present Illness Chief Complaint: Chest Other Informant: patient Onset/Context/Timing Onset: Days Mechanism/Context: Blunt Injury and Fall Quality of Pain: Sharp Location: Slipped shoveling snow injuring his right lateral rib cage. 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 Did not hit his head no LOC no other complaints he is complaining at times worse with movement of sharp right rib cage pain. No other complaints. No abdominal pain. No anterior chest pain. No lower extremity injuries. Prior similar symptoms: No Recent Illness/Hospitalization: No PFSH PFSH Medical History Lung nodules Drug induced neutropenia Encounter for chemotherapy management Hypokalemia Iron deficiency anemia Anemia Regional lymph node metastasis present Colon cancer Smoker Intussusception Abdominal pain Home Medications ?Medication ?Instructions ?Recorded ?Last Taken ?Type NK 11/15/24 Unknown History Allergy/AdvReac Type Severity Reaction Status Date / Time No Known Allergies Allergy Verified 03/17/25 12:13 Family History Father Colon cancer, Onset Age: 70 Mother Diabetes Surgical History Hx of surgical procedure H/O hemicolectomy Social History Smoking Status: Former smoker alcohol intake: never substance use type: does not use ROS ROS ED ROS Narrative Denies recent illness. Constitutional Constitutional ED: Denies fever(s) Eyes Eyes: Denies blurry vision ENT ENT ED: Denies ear pain Cardiovascular Cardiovascular: Denies chest pain Respiratory/Chest Respiratory/Chest: Denies cough or dyspnea Gastrointestinal Gastrointestinal: Denies abdominal pain Genitourinary Genitourinary ED: Denies dysuria or hematuria Musculoskeletal Musculoskeletal: Denies arthralgias Integumentary Denies abscess or Abrasions Neurologic Neurologic: Denies headache(s) Psychiatric Psychiatric: Denies anxiety or depression Endocrine Endocrinology: Denies cold intolerance Hematologic/Lymphatic Hematologic/Lymphatic: Denies easy bleeding, easy bruising or lymphadenopathy Allergic/Immunologic Allergic/Immunologic ED: Denies mouth swelling, tongue swelling or urticaria EXAM Physical Exam Narrative Exam Narrative: Well-appearing 54-year-old male. Sitting upright in chair. Vital signs are stable afebrile. No distress. Pulse ox 97% on room air no hypoxia. H EENT exam pupils round react light. Moist mucous membranes. No trauma or tenderness to his face or scalp. C-spine and neck nontender. Back nontender. No bruising. Lungs clear to auscultation bilaterally. Heart regular rhythm no murmur. Chest wall and ribs is anterior chest wall and left rib cage nontender is right lateral mid axillary line mid rib cage is tender to palpation. No ecchymosis or bruising. No subcu air or crepitus. No gross bony deformity. Abdomen soft nontender no bruising. No peritoneal signs. Pelvic girdle intact. Moving all 4 extremities. Normal strength. Normal range of motion. No deformity. Nontender. Neurologically he is awake alert. Answering questions following commands. GCS 15. Const Vital Signs: 03/17/25 12:12 03/17/25 12:53 Temperature 97.8 F Temperature Source Oral Pulse Rate 74 Respiratory Rate 18 Respiratory Effort Normal Non-Labored Respiratory Pattern Normal Blood Pressure 159/87 H Blood Pressure Mean 111 Pulse Ox 97 Oxygen Delivery Method Room Air MDM MDM MDM Narrative Medical decision making narrative: 54-year-old male slipped on the ice 2 days ago on Friday injuring his right rib cage on a step. Chest x-ray being obtained rib fracture versus contusion. He did not want or need anything for pain. Repeat exam patient is doing well at 1:05 PM. We discussed his x-ray results. He understands there could be a nondisplaced fracture not seen on the film. He does not feel necessarily we need to get a CAT scan at this time nor do I. Ice to the area. Motrin and Tylenol for pain. If not improving follow-up or return if worse. He is comfortable with that plan. Treated as a rib contusion or nondisplaced fracture. Radiography Chest X-Ray - ED: 2 View, Read by ED Physician, Normal, Heart, Lungs, Mediast inum, Bony Structures, No Acute Disease and Chronic Changes Diagnostic Testing: Chest x-ray, 2 views, AP and lateral, interpreted by myself shows no acute abnormality. No obvious fracture. No pneumothorax. No hemothorax. Normal cardiac silhouette. No acute bony abnormalities. I did go over the x-ray with the patient. I explained that a plain chest x-ray could miss rib fractures. Discharge Plan Triage Chief Complaint: Chest Other ED Provider: Haris Foley Dx/Rx/DC Orders Clinical Impression: Fall, Contusion of rib on right side Instructions: ED Bruise, Rib Prescriptions: No Action NK Primary Care Provider: Demetrius Phelps Referrals: Demetrius Phelps DO [Primary Care Provider, [facility]] - As Needed Activity Restrictions/Additional Instructions: Ice to the sore area to decrease pain and inflammation. Motrin for pain and inflammation and Tylenol. No obvious broken rib on the chest x-ray. Chest x-rays can miss nondisplaced fractures. If it is not improving you can always follow-up or you could return and we can always get a CAT scan. He will necessarily need that at this time. He is a pillow to hold pressure on the area to help with his discomfort. Print Language: Guamanian Disposition Disposition: Home, Self Care
--- NOTE | 2025-03-17 12:48 | RAD_ITS ---
PROCEDURE: CHEST PA AND LATERAL 03/17/2025 REASON FOR EXAM: FELL AND RIGHT RIB CAGE PAIN TECHNIQUE: Procedure Code: RADCXR Modality: DX Procedure: CHEST PA AND LATERAL COMPARISON: 05/18/2024. FINDINGS: The heart is enlarged. Bibasilar opacities which may represent atelectasis or infiltrate. No obvious rib fracture. If there is high clinical concern for rib fracture consider dedicated rib series. RAD/Chest PA and Lateral IMPRESSION: Pulmonary findings as above. Reading Location: [id number]
== END 2025-03-17 13:33 | disposition home or self-care (01) ==
PROVIDERS: Emergency Provider Emergency Medicine; PCP Family Medicine; Visit Provider Emergency Medicine
DX: S20.211A Contusion of right front wall of thorax, initial encounter (principal); Z87.891 Personal history of nicotine dependence; Z85.038 Personal history of other malignant neoplasm of large intestine; W01.0XXA Fall on same level from slipping, tripping and stumbling without subsequent striking against object, initial encounter
CPT/HCPCS: 71046; 99282

== ENCOUNTER → 2025-03-22 | Outpatient (CLI) | payer OTHER, SELFPAY ==
--- NOTE | 2025-03-22 16:48 | CT_ITS ---
PROCEDURE: CT CHEST, ABD, PEL W/CONTRAST 03/22/2025 REASON FOR EXAM: COLON CANCER WITH RISING MARKER IV/ORAL CON TECHNIQUE: Chest, abdomen and pelvis CT with intravenous contrast. Coronal and Sagittal reconstruction series were provided. One or more dose reduction techniques were used (e.g., Automated exposure control, adjustment of the mA and/or kV according to patient size, use of iterative reconstruction technique. ORAL CONTRAST : Was administered CONTRAST: Isovue-300 VOLUME: 90mL RADIATION DOSE SUMMARY: Total DLP: 04/18/2077 [facility] COMPARISON: 11/01/2024 FINDINGS: CT CHEST: Pulmonary parenchyma: Clear lungs. Airways: The central airways are patent. Pleural space: No pneumothorax or pleural effusion. Heart and pericardium: The heart is normal in size. No pericardial effusion. Mediastinum and alayna: Unremarkable. Thoracic vessels: The thoracic aorta and main pulmonary artery are normal in caliber. Osseous structures: No aggressive osseous lesion. Multilevel degenerative disc disease. Soft tissues are unremarkable. CT ABDOMEN/PELVIS: LIVER:No enlargement, atrophy, abnormal density, or significant focal lesion. GALLBLADDER/BILIARY:The gallbladder is contracted. There is no pericholecystic fluid. No biliary ductal dilatation. PANCREAS:No lesion, fluid collection, or duct dilatation. SPLEEN:No enlargement or focal lesion. ADRENALS:No mass or enlargement. KIDNEYS AND URETERS:No hydronephosis, mass, obstruction, or calcification. URINARY BLADDER:No focal wall thickening, trabeculation, lesion, or calculus. REPRODUCTIVE ORGANS:No mass. AORTA/VASCULAR:No aneurysm or dissection. RETROPERITONEUM:No mass or adenopathy. LYMPH NODES:No adenopathy. INTRAPERITONEAL SPACE:No free air. No significant fluid collection. No mass. STOMACH/BOWEL/MESENTERY:Status post right hemicolectomy. No local recurrence. No bowel obstruction. No evidence of appendicitis or diverticulitis ABDOMINAL WALL:Anterior abdominal wall hernia containing loops of small bowel. The defect in the anterior abdominal wall measured 46 mm. BONES:No osseous lesions or fractures. CT/CT Chest, Abd, Pel w/Contrast IMPRESSION: No evidence of recurrent or metastatic disease. Stable exam. Reading Location: [id number]
== END | disposition home or self-care (01) ==
LOC: CT 16:43
PROVIDERS: PCP Family Medicine; Referring Provider Internal Medicine Hematology & Oncology; Visit Provider Internal Medicine Hematology & Oncology
DX: C18.2 Malignant neoplasm of ascending colon (principal)
CPT/HCPCS: 71260; 74177; Q9967